=== PATIENT | male | born 1970 | race Two or more races ===

== ENCOUNTER 2020-08-23 07:46 | Inpatient (IN) | payer SELFPAY ==
[~2020-08-23] VITALS: Ht 167.6 cm; Wt 54.9 kg
[2020-08-23] VITALS (22 sets, daily range): BP systolic 82–159; BP diastolic 50–87
[2020-08-23] MEDS ORDERED: Insulin Human Regular 100units/ml 3ml IV ONE (08:15)
[2020-08-23] MEDS ORDERED: LORazepam Inj 2mg/ml 1ml IM ONE (08:15)
[2020-08-23] MEDS ORDERED: Haloperidol 5mg/ml Inj IM ONE (08:15)
[2020-08-23] MEDS ORDERED: Calcium Gluconate 1gm/10ml vial IVP ONE (08:15)
--- NOTE | 2020-08-23 08:15 | NUR ---
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 18 gauge LT AC IV est; blood, blood culture collected and sent to lab. Urine obtained and sent to lab.
--- NOTE | 2020-08-23 08:38 | NUR ---
ED Nurse Note: pt brought in by [address] (unknown if homeless) due to ALOC, 911 called by valdez. pt aao x0 but responds to pain, opening eyes spontaneously, disheveled appearance noted with soiled clothing on. skin is dry and dusky and has old scabs. tachycardia noted upon arrival but fluctuating between 90 to 140/min depends on movement. pt unable to answer to clinical questions at this time. pt has shunt looking access on arm but unable to answer if it is shunt for HD. 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 Addendum: 08/23/20 at 0911 by [email or web address] ED Nurse Note: pt brought in by [address] (unknown if homeless) due to ALOC, 911 called by valdez. pt aao x0 but responds to pain, opening eyes spontaneously, disheveled appearance noted with soiled clothing on. skin is dry and dusky and has old scabs. tachycardia noted upon arrival but fluctuating between 90 to 140/min depends on movement. pt unable to answer to clinical questions at this time. pt has shunt looking access on Rt upper chest but unable to answer if it is shunt for HD. 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 pt follows commands to "open your mouth, lay down."
[2020-08-23 08:41] LABS: APPEARANCE,URINE SLIGHTLY CLOUDY; BILIRUBIN, URINE NEGATIVE (NEGATIVE); GLUCOSE, URINE (UA) 1+ (NEGATIVE); KETONES,URINE 2+ (NEGATIVE); LEUKOCYTE ESTERASE ,URINE 1+ (NEGATIVE); NITRITE,URINE NEGATIVE (NEGATIVE); PH,URINE 5 (4.5-8.0); PROTEIN,URINE 4+ (NEGATIVE); UROBILINOGEN,URINE NORMAL MG/DL (0.0-1.0)
[2020-08-23 08:44] LABS: HEMOGLOBIN 11.8 G/DL (14.2-18.0); MEAN CORPUSCULAR VOLUME 102 FL (80-99); PLATELET COUNT 136 K/UL (150-450); RED BLOOD COUNT 3.54 M/UL (4.70-6.10); WHITE BLOOD COUNT 12.6 K/UL (4.8-10.8)
--- NOTE | 2020-08-23 08:46 | Emergency Room Report ---
History of Present Illness General Chief Complaint: Altered Level of Consciousness Source: EMS Present Illness HPI 50-year-old male presents to ED for altered level of consciousness. Found by EMS on Street. Found down. Patient grunting and moaning but unable provide any additional history. No other aggravating relieving factors. Denies any other associated symptoms Allergies: Coded Allergies: No Known Allergies (Unverified , 08/23/20) COVID-19 Screening Contact w/high risk pt: No Experienced COVID-19 symptoms?: No COVID-19 Testing performed CORPORATE STRATEGIST: No Patient History Past Medical History: renal disease, dialysis Past Surgical History: none Pertinent Family History: none Social History: Denies: smoking, alcohol use, drug use Immunizations: UTD Reviewed Nursing Documentation: PMH: Agreed; PSxH: Agreed Nursing Documentation-PMH Hx Dialysis: Yes Review of Systems All Other Systems: limited Physical Exam Vital Signs Date Time Temp Pulse Resp B/P (MAP) Pulse Ox O2 Delivery O2 Flow Rate FiO2 08/23/20 07:43 97.9 79 20 116/83 (94) 97 Room Air Sp02 EP Interpretation: reviewed, normal General Appearance: no apparent distress, other - lethargic Head: normocephalic, atraumatic Eyes: bilateral eye normal inspection, bilateral eye PERRL ENT: hearing grossly normal, normal pharynx, no angioedema, normal voice Neck: full range of motion, supple/symm/no masses Respiratory: chest non-tender, lungs clear, normal breath sounds, speaking full sentences, other - vascular access on R chest Cardiovascular #1: regular rate, rhythm, no edema Cardiovascular #2: 2+ carotid (R), 2+ carotid (L), 2+ radial (R), 2+ radial (L), 2+ dorsalis pedis (R), 2+ dorsalis pedis (L) Gastrointestinal: normal bowel sounds, non tender, soft, non-distended, no guarding, no rebound Rectal: deferred Genitourinary: normal inspection, no CVA tenderness Musculoskeletal: back normal, normal range of motion, gait/station normal, non- tender Neurologic: other - ALOC Psychiatric: other - ALOC Reflexes: 3+ bicep (R), 3+ bicep (L), 3+ tricep (R), 3+ tricep (L), 3+ knee (R), 3+ knee (L) Skin: other - see nursing notes Lymphatic: no adenopathy Procedures Critical Care Time Critical Care Time i. I feel this is a highly complex case requiring extensive working including EKG/Rhythm strip, Xray/CT/US, Blood/urine lab work, repeat exams while in ED, and administration of strong opiates/narcotics for pain control, admission to hospital or close patient follow up. Total time: 60 min bedside evaluation and treatment excludes procedures (EKG). Reason for critical care: Acidosis, end-stage renal disease, hyperkalemia, ALOC, CVA Possible complications: hypotension, hypertension, KS, shock, arrhythmias, me tabolic acidosis, end organ damage, respiratory failure. Interventions: Labs, EKG, chest x-ray, CT, drug screen, calcium, insulin, D50. Course: Presented ALOC. Initially altered and agitated. Restrained given Haldol/Ativan. CT head shows subacute and old infarcts. EKG shows peaked T waves in anterior leads. Dialysis catheter noted on chest. Given calcium, insulin, D50. Potassium 5.7. BUN/creatinine elevated. LFTs elevated. Troponin 0.151 likely leak. UA positive THC. Covid negative. Small fluids bolus Consultations: nursing staff, EMS, family Performed by: Dr Reyes Tolerated well condition = serious j. because of unstable vital signs this patient had a condition that could potentially threaten life or limb. I feel this is a critical patient who required my full attention while patient was considered critical. Total Critical Care Time excluding procedures was greater than 60 minutes Medical Decision Making Diagnostic Impression: Primary Impression: Altered level of consciousness Additional Impressions: ESRD (end stage renal disease) Elevated LFTs Hyperkalemia, diminished renal excretion Troponin level elevated ER Course Hospital Course 50-year-old male found down. Dialysis catheter in chest. Differential diagnoses include: KS/unstable angina, arrythmia, dehydration, CVA/TIA Clinical course Patient placed on stretcher. on cafeteria monitor. After initial history and physical I ordered labs, EKG, chest x-ray, IVFs, CT Brain labs reviewed- noted leukocytosis, hemoglobin/hematocrit ok, K 5.7, BUN/Cr elevated, Trop elevated, LFTs elevated EKG- peaked twaves in anterior leads interpreted by me Chest x-ray- no acute process CT brain- subacute vs old infarcts noted Rapid Covid negative UDS positive THC Given calcium, insulin, D50. Given small fluid bolus. Troponin leak likely given end-stage renal disease. Case discussed with Dr. Bhandari and he agreed to accept the patient to his ser vice for further care and support I. I feel this is a highly complex case requiring extensive working including EKG/Rhythm strip, Xray/CT/US, Blood/urine lab work, repeat exams while in ED, and administration of strong opiates/narcotics for pain control, admission to hospital or close patient follow up. Diagnosis - ALOC, ERSD, elevated LFTs, hyperkalemia, troponin elevated admitted to telemetry in serious condition Laboratory Tests Test 08/23/20 08:05 08/23/20 08:15 White Blood Count 12.6 K/UL (4.8-10.8) H Red Blood Count 3.54 M/UL (4.70-6.10) L Hemoglobin 11.8 G/DL (14.2-18.0) L Hematocrit 36.0 % (42.0-52.0) L Mean Corpuscular Volume 102 FL (80-99) H Mean Corpuscular Hemoglobin 33.3 PG (27.0-31.0) H Mean Corpuscular Hemoglobin Concent 32.8 G/DL (32.0-36.0) Red Cell Distribution Width 14.0 % (11.6-14.8) Platelet Count 136 K/UL (150-450) L Mean Platelet Volume 7.7 FL (6.5-10.1) Neutrophils (%) (Auto) % (45.0-75.0) Lymphocytes (%) (Auto) % (20.0-45.0) Monocytes (%) (Auto) % (1.0-10.0) Eosinophils (%) (Auto) % (0.0-3.0) Basophils (%) (Auto) % (0.0-2.0) Differential Total Cells Counted 100 Neutrophils % (Manual) 83 % (45-75) H Lymphocytes % (Manual) 4 % (20-45) L Monocytes % (Manual) 6 % (1-10) Eosinophils % (Manual) 0 % (0-3) Basophils % (Manual) 0 % (0-2) Band Neutrophils 7 % (0-8) Platelet Estimate Decreased L Platelet Morphology Normal Macrocytosis 1+ Sodium Level 133 MMOL/L (136-145) L Potassium Level 5.7 MMOL/L (3.5-5.1) H Chloride Level 91 MMOL/L (98-107) L Carbon Dioxide Level 7 MMOL/L (21-32) *L Anion Gap 35 mmol/L (5-15) H Blood Urea Nitrogen 149 mg/dL (7-18) H Creatinine 15.5 MG/DL (0.55-1.30) H Estimat Glomerular Filtration Rate 3.4 mL/min (>60) Glucose Level 142 MG/DL (74-106) H Calcium Level 8.1 MG/DL (8.5-10.1) L Total Bilirubin 1.3 MG/DL (0.2-1.0) H Direct Bilirubin 0.7 MG/DL (0.0-0.3) H Aspartate Amino Transf (AST/SGOT) 133 U/L (15-37) H Alanine Aminotransferase (ALT/SGPT) 74 U/L (12-78) Alkaline Phosphatase 123 U/L (46-116) H Ammonia 129 umol/L (11-32) H Troponin I 0.151 ng/mL (0.000-0.056) Total Protein 10.2 G/DL (6.4-8.2) H Albumin 3.4 G/DL (3.4-5.0) Globulin 6.8 g/dL Albumin/Globulin Ratio 0.5 (1.0-2.7) L Salicylates Level 5.3 ug/mL (2.8-20) Urine Opiates Screen Negative (NEGATIVE) Acetaminophen Level < 2 MCG/ML (10-30) L Urine Barbiturates Screen Negative (NEGATIVE) Phencyclidine (PCP) Screen Negative (NEGATIVE) Urine Amphetamines Screen Negative (NEGATIVE) Urine Benzodiazepines Screen Negative (NEGATIVE) Urine Cocaine Screen Negative (NEGATIVE) Urine Marijuana (THC) Screen Positive (NEGATIVE) H Serum Alcohol < 3 mg/dL Urine Color Yellow Urine Appearance Slightly cloudy Urine pH 5 (4.5-8.0) Urine Specific [place] 1.020 (1.005-1.035) Urine Protein 4+ (NEGATIVE) H Urine Glucose (UA) 1+ (NEGATIVE) H Urine Ketones 2+ (NEGATIVE) H Urine Blood 4+ (NEGATIVE) H Urine Nitrite Negative (NEGATIVE) Urine Bilirubin Negative (NEGATIVE) Urine Urobilinogen Normal MG/DL (0.0-1.0) Urine Leukocyte Esterase 1+ (NEGATIVE) H Urine RBC 10-15 /HPF (0 - 0) H Urine WBC 2-4 /HPF (0 - 0) Urine Squamous Epithelial Cells Occasional /LPF Urine Bacteria Few /HPF (NONE) EKG Diagnostic Results Troponin ordered: Yes Rate: normal Rhythm: NSR ST Segments: other - peaked twave in anterior leads ASA given to the pt in ED: Yes Rhythm Strip Diag. Results EP Interpretation: yes Rhythm: NSR, no PVC's Chest X-Ray Diagnostic Results Chest X-Ray Diagnostic Results : Chest X-Ray Ordered: Yes # of Views/Limited/Complete: 1 View Indication: Other EP Interpretation: Yes Interpretation: no consolidation, no effusion, no pneumothorax, no acute cardiopulmonary disease, other - dialysis catheter in chest Impression: No acute disease Electronically Signed by: Electronically signed by Seven Reyes MD Last Vital Signs Date Time Temp Pulse Resp B/P (MAP) Pulse Ox O2 Delivery O2 Flow Rate FiO2 08/23/20 08:07 101 18 143/86 98 08/23/20 07:43 97.9 Room Air Status: improved Disposition: ADMITTED INPATIENT Condition: Serious Scripts No Active Prescriptions or Reported Meds Referrals: NOT CHOSEN IPA/,REFERRING (PCP) Seven Reyes MD Aug 23, 2020 08:46
[2020-08-23 08:58] LABS: COLOR,URINE YELLOW
[2020-08-23 09:10] LABS: ALANINE AMINOTRANSFERASE 74 U/L (12-78); ALBUMIN 3.4 G/DL (3.4-5.0); ALBUMIN/GLOBULIN RATIO 0.5 (1.0-2.7); ALKALINE PHOSPHATASE 123 U/L (46-116); AMMONIA 129 umol/L (11-32); ANION GAP 35 mmol/L (5-15); ASPARTATE AMINO TRANSFERASE 133 U/L (15-37); BILIRUBIN,TOTAL 1.3 MG/DL (0.2-1.0); BLOOD UREA NITROGEN 149 mg/dL (7-18); CALCIUM 8.1 MG/DL (8.5-10.1); CHLORIDE 91 MMOL/L (98-107); CREATININE 15.5 MG/DL (0.55-1.30); POTASSIUM 5.7 MMOL/L (3.5-5.1); SODIUM 133 MMOL/L (136-145)
[2020-08-23 09:15] LABS: CARBON DIOXIDE 7 MMOL/L (21-32)
[2020-08-23 09:17] LABS: BILIRUBIN,DIRECT 0.7 MG/DL (0.0-0.3)
[2020-08-23] MEDS ORDERED: Sodium Bicarbonate 50ml Carp IV ONE (09:45)
--- NOTE | 2020-08-23 10:10 | NUR ---
ED Nurse Note: pt left to CT in stable condition after Covid results confirmed to negative.
--- NOTE | 2020-08-23 10:21 | NUR ---
ED Nurse Note: pt came back from CT in stable condition. 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
--- NOTE | 2020-08-23 10:49 | NUR ---
ED Nurse Note: x-ray at bedside.
--- NOTE | 2020-08-23 10:53 | Diagnostic Imaging Report ---
Indications: Altered level of consciousness Technique: Spiral acquisitions obtained through the brain. Angled axial and coronal 5 x 5 mm slices were reconstructed. Total dose length product 1072 mGycm. CTDI vol(s) 53 mGy. Dose reduction achieved using automated exposure control Comparison: None. Findings: There is an old focal right frontal infarct. There is age-related enlargement of the ventricles and extra axial CSF spaces as well as periventricular deep white matter low attenuation, consistent with chronic ischemic change. There is low attenuation in the posterior inferior left basal ganglia just lateral to the hypothalamus. No acute intracranial bleed. No mass effect or midline shift. Otherwise normal mack-white differentiation. There is enlargement advanced for patient's age. Visualized orbits and sinuses are unremarkable. The mastoids are clear. The calvarium is intact Impression: Subacute versus old left inferior basal ganglia lacunar infarct Old right frontal infarct Other chronic and age-related changes as described Negative for acute intracranial bleed or mass effect Findings discussed by phone with Dr. Reyes in the emergency room at the time of interpretation The CT scanner at [facility] is accredited by the [employer] and the scans are performed using protocols designed to limit radiation exposure to as low as reasonably achievable to attain images of sufficient resolution adequate for diagnostic evaluation.
--- NOTE | 2020-08-23 11:27 | NUR ---
ED Nurse Note: Dr. Bhandari at pt bedside
--- NOTE | 2020-08-23 13:42 | Consultation ---
Consult Note Consult Note I am asked to eval for dialysis patient in ER Dialysis ordered full not to follow 50-year-old male presents to ED for altered level of consciousness. Found by EMS on [address]. Found down. Patient grunting and moaning but unable provide any additional history. No other aggravating relieving factors. Denies any other associated symptoms Allergies: No Known Allergies (Unverified , 08/23/20) COVID-19 Screening Contact w/high risk pt: No Experienced COVID-19 symptoms?: No COVID-19 Testing performed CASE SPECIALIST: No Past Medical History: renal disease, dialysis Past Surgical History: none Pertinent Family History: none Social History: Denies: smoking, alcohol use, drug use Immunizations: UTD Reviewed Nursing Documentation: PMH: Agreed; PSxH: Agreed Hx Dialysis: Yes Vital Signs in ER: Date Time Temp Pulse Resp B/P (MAP) Pulse Ox O2 Delivery O2 Flow Rate FiO2 08/23/20 07:43 97.9 79 20 116/83 (94) 97 Room Air PHYSICAL EXAMINATION: VITAL SIGNS: Temperature 99.9, pulse 102, blood pressure 98/58. HEAD AND NECK: [place] conjunctivae. HEART: Tachycardic. Has right IJ PermCath. LUNGS: Clear. ABDOMEN: Soft, flat. EXTREMITIES: No edema. SKIN: Has some rash. NEUROLOGIC: He is confused, on restraints. LABORATORY AND DIAGNOSTIC DATA: WBC 15.3 going up from 12.6, hemoglobin 11, hematocrit 30.2, platelets 157. Sodium 135, potassium 3.5, chloride 94, bicarb 17, BUN 61, creatinine 7.6. Uric acid is 7.7. Bilirubin 1.2. BNP more than 35,000. Troponin 0.151 that increased to 0.4. CRP elevated 18.8. Urine toxicology was positive for marijuana. Chest x-ray was negative. 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 Abdominal ultrasound showed cholelithiasis, gallbladder wall thickening and hyperemia, questionable acute cholecystitis. . 2 . Assessment/Plan (1) ESRD (end stage renal disease) (2) Altered level of consciousness (3) Hyperkalemia, diminished renal excretion (4) Elevated LFTs (5) Troponin level elevated Dialysis ordered Management of atrial fibrillation Management of hypotension and sepsis Per consultants Per orders Alfredo Germain MD Aug 23, 2020 13:42
[2020-08-23] MEDS ORDERED: Metoprolol Tartrate 5mg/5ml Inj IVP SCH (13:45)
--- NOTE | 2020-08-23 15:00 | Diagnostic Imaging Report ---
Indication: Cough Technique: One view of the chest Comparison: none Findings: Lungs and pleural spaces are clear. The heart size is normal. There is a right chest tunneled dialysis catheter Impression: No acute process
--- NOTE | 2020-08-23 15:04 | Cardiac Electrophysiology PN ---
Subjective Subjective [id number] Objective Last 24 Hour Vital Signs Date Time Temp Pulse Resp B/P (MAP) Pulse Ox O2 Delivery O2 Flow Rate FiO2 08/23/20 14:09 97.6 112 19 82/60 100 Room Air 08/23/20 13:45 142 116/51 08/23/20 12:30 98.2 132 30 116/72 100 Room Air 08/23/20 10:31 115 19 96/54 100 Room Air 08/23/20 08:37 128 19 99/56 100 08/23/20 08:20 95 18 Room Air 08/23/20 08:20 97.9 95 18 143/86 100 Room Air 08/23/20 08:07 101 18 143/86 98 08/23/20 07:43 97.9 79 20 116/83 (94) 97 Room Air Laboratory Tests Test 08/23/20 08:05 08/23/20 08:15 08/23/20 12:00 White Blood Count 12.6 K/UL (4.8-10.8) H Red Blood Count 3.54 M/UL (4.70-6.10) L Hemoglobin 11.8 G/DL (14.2-18.0) L Hematocrit 36.0 % (42.0-52.0) L Mean Corpuscular Volume 102 FL (80-99) H Mean Corpuscular Hemoglobin 33.3 PG (27.0-31.0) H Mean Corpuscular Hemoglobin Concent 32.8 G/DL (32.0-36.0) Red Cell Distribution Width 14.0 % (11.6-14.8) Platelet Count 136 K/UL (150-450) L Mean Platelet Volume 7.7 FL (6.5-10.1) Neutrophils (%) (Auto) % (45.0-75.0) Lymphocytes (%) (Auto) % (20.0-45.0) Monocytes (%) (Auto) % (1.0-10.0) Eosinophils (%) (Auto) % (0.0-3.0) Basophils (%) (Auto) % (0.0-2.0) Differential Total Cells Counted 100 Neutrophils % (Manual) 83 % (45-75) H Lymphocytes % (Manual) 4 % (20-45) L Monocytes % (Manual) 6 % (1-10) Eosinophils % (Manual) 0 % (0-3) Basophils % (Manual) 0 % (0-2) Band Neutrophils 7 % (0-8) Platelet Estimate Decreased L Platelet Morphology Normal Macrocytosis 1+ Sodium Level 133 MMOL/L (136-145) L Potassium Level 5.7 MMOL/L (3.5-5.1) H Chloride Level 91 MMOL/L (98-107) L Carbon Dioxide Level 7 MMOL/L (21-32) *L Anion Gap 35 mmol/L (5-15) H Blood Urea Nitrogen 149 mg/dL (7-18) H Creatinine 15.5 MG/DL (0.55-1.30) H Estimat Glomerular Filtration Rate 3.4 mL/min (>60) Glucose Level 142 MG/DL (74-106) H Calcium Level 8.1 MG/DL (8.5-10.1) L Total Bilirubin 1.3 MG/DL (0.2-1.0) H Direct Bilirubin 0.7 MG/DL (0.0-0.3) H Aspartate Amino Transf (AST/SGOT) 133 U/L (15-37) H Alanine Aminotransferase (ALT/SGPT) 74 U/L (12-78) Alkaline Phosphatase 123 U/L (46-116) H Ammonia 129 umol/L (11-32) H Troponin I 0.151 ng/mL (0.000-0.056) Total Protein 10.2 G/DL (6.4-8.2) H Albumin 3.4 G/DL (3.4-5.0) Globulin 6.8 g/dL Albumin/Globulin Ratio 0.5 (1.0-2.7) L Salicylates Level 5.3 ug/mL (2.8-20) Urine Opiates Screen Negative (NEGATIVE) Acetaminophen Level < 2 MCG/ML (10-30) L Urine Barbiturates Screen Negative (NEGATIVE) Phencyclidine (PCP) Screen Negative (NEGATIVE) Urine Amphetamines Screen Negative (NEGATIVE) Urine Benzodiazepines Screen Negative (NEGATIVE) Urine Cocaine Screen Negative (NEGATIVE) Urine Marijuana (THC) Screen Positive (NEGATIVE) H Serum Alcohol < 3 mg/dL Urine Color Yellow Urine Appearance Slightly cloudy Urine pH 5 (4.5-8.0) Urine Specific [place] 1.020 (1.005-1.035) Urine Protein 4+ (NEGATIVE) H Urine Glucose (UA) 1+ (NEGATIVE) H Urine Ketones 2+ (NEGATIVE) H Urine Blood 4+ (NEGATIVE) H Urine Nitrite Negative (NEGATIVE) Urine Bilirubin Negative (NEGATIVE) Urine Urobilinogen Normal MG/DL (0.0-1.0) Urine Leukocyte Esterase 1+ (NEGATIVE) H Urine RBC 10-15 /HPF (0 - 0) H Urine WBC 2-4 /HPF (0 - 0) Urine Squamous Epithelial Cells Occasional /LPF Urine Bacteria Few /HPF (NONE) Lactic Acid Level 1.60 mmol/L (0.4-2.0) Microbiology Date/Time Source Procedure Growth Status 08/23/20 08:35 Nasopharynx SARS-CoV-2 RdRp Gene Assay - Final Complete Kurtis Fisher MD Aug 23, 2020 15:04
[2020-08-23] MEDS ORDERED: dilTIAZem Premix 125mg/125ml 125 ML IVPB ONE (15:15)
--- NOTE | 2020-08-23 15:29 | Emergency Room Report ---
History of Present Illness General Chief Complaint: Altered Level of Consciousness Source: EMS Present Illness Allergies: Coded Allergies: No Known Allergies (Unverified , 08/23/20) COVID-19 Screening Contact w/high risk pt: No Experienced COVID-19 symptoms?: No COVID-19 Testing performed PASTRY DECORATOR: No Nursing Documentation-PMH Hx Dialysis: Yes Physical Exam Vital Signs Date Time Temp Pulse Resp B/P (MAP) Pulse Ox O2 Delivery O2 Flow Rate FiO2 08/23/20 07:43 97.9 79 20 116/83 (94) 97 Room Air Procedures Critical Care Time Critical Care Time i. I feel this is a highly complex case requiring extensive working including EKG/Rhythm strip, Xray/CT/US, Blood/urine lab work, repeat exams while in ED, and administration of strong opiates/narcotics for pain control, admission to hospital or close patient follow up. Total time: 60 min bedside evaluation and treatment excludes procedures (EKG). Reason for critical care: Hypotension, acidosis, A. fib with RVR Possible complications: hypotension, hypertension, SC, shock, arrhythmias, metabolic acidosis, end organ damage, respiratory failure. Interventions: Repeat EKG. Lopressor x3. Reassessment of vitals. Right femoral central line. Pressors Course: Patient currently awaiting bed. Patient developing A. fib with RVR. Given Lopressor x3 with cardioversion achieved. BP dropping. Small fluid boluses given but remains hypotensive. Right femoral line placed. Pressors started Consultations: nursing staff, EMS, family, cardiology, nephrology Performed by: Dr Reyes Tolerated well condition = critical j. because of unstable vital signs this patient had a condition that could potentially threaten life or limb. I feel this is a critical patient who required my full attention while patient was considered critical. Total Critical Care Time excluding procedures was greater than 60 minutes Central Line Central Line : Consent: Emergent Central Line Lumen: triple Maximal Sterile Barrier Tech: yes cap, yes mask, yes sterile gown, yes sterile gloves, yes large sterile sheet, yes hand hygiene, yes chlorhexidine prep Central Line Postion: femoral (R) Anesthesia: Lidocaine Complications: none Central Line Post Position: sutured, good blood return Attempts: One Patient Tolerated: Well Complications: None Medical Decision Making Diagnostic Impression: Primary Impression: Altered level of consciousness Additional Impressions: Elevated LFTs ESRD (end stage renal disease) Troponin level elevated Hyperkalemia, diminished renal excretion ER Course Patient awaiting bed. During ED course patient developed A. fib with RVR. Given Lopressor x3 with cardioversion achieved. Patient's BP drops. Given small fluid boluses but remains hypotensive. Patient cannot receive full fluid resuscitation due to end-stage renal disease. Central line placed. Pressors started. will be upgraded to ICU Last Vital Signs Date Time Temp Pulse Resp B/P (MAP) Pulse Ox O2 Delivery O2 Flow Rate FiO2 08/23/20 14:09 97.6 112 19 82/60 100 Room Air Status: improved Disposition: ADMITTED INPATIENT Condition: Critical Scripts No Active Prescriptions or Reported Meds Referrals: NOT CHOSEN IPA/,REFERRING (PCP) Seven Reyes MD Aug 23, 2020 15:29
--- NOTE | 2020-08-23 15:43 | NUR ---
ED Nurse Note: rechecked in 5 mins. goal has met to 101/54mmHg. remaining at the same rate.
--- NOTE | 2020-08-23 16:00 | NUR ---
ED Nurse Note: per clinical pharmacology site, Cardizem and Levophed are compatibility. probation officer Torie made aware. we will use 1 centural line and 1 iv line.
[2020-08-23] MEDS ORDERED: NS IVPB SCH (16:04)
[2020-08-23] MEDS ORDERED: DILTIAZEM HCL IVPB SCH (16:04)
[2020-08-23] MEDS ORDERED: dilTIAZem HCL 125 MG in NS 100 ML IVPB SCH (16:15)
--- NOTE | 2020-08-23 16:32 | NUR ---
ED Nurse Note: HR remained tachy at 127/min. Cardizem titrated to 5mg/hr. will rechecked in 15 mins.
--- NOTE | 2020-08-23 16:47 | NUR ---
ED Nurse Note: HR at 110/min. titrate to 7.5mg/hr.
--- NOTE | 2020-08-23 17:02 | NUR ---
ED Nurse Note: HR 119/min. titrated to 10mg/hr.
--- NOTE | 2020-08-23 17:17 | NUR ---
ED Nurse Note: HR 110/min. tirated Cardizem to 12.5mg/hr.
--- NOTE | 2020-08-23 17:32 | NUR ---
ED Nurse Note: HR at 111/min. titrated to max dose 15mg/hr. ERMD made aware.
--- NOTE | 2020-08-23 17:34 | NUR ---
ED Nurse Note: per ERMD it is ok to maintain current rate of Cardizem. current HR between 100 to 120/min. however, it does not fluctuate as prior to cardizem drip.
--- NOTE | 2020-08-23 17:44 | Consultation ---
DATE OF CONSULTATION: 08/23/2020 CARDIOLOGY CONSULTATION CONSULTING PHYSICIAN: Kurtis Fisher MD REFERRING PHYSICIAN: Lev Bhandari MD REASON FOR CONSULTATION: Atrial fibrillation with rapid ventricular response. HISTORY OF PRESENT ILLNESS: Patient is a 50-year-old gentleman with unknown past medical history except that he has a dialysis access on his chest, was found by paramedics on the street. Patient was grunting and moaning, was not able to provide any information. Patient was brought to the emergency room. While in the ER, even though he initially was in sinus rhythm, rate of 70 atrial fibrillation with rapid ventricular response with heart rate of 160s. Patient received 5 mg of IV metoprolol by the ER physician and a Cardiology consultation was obtained for further evaluation. At the time of my evaluation, patient is unable to provide any information, the blood pressure. Patient also was severely hyperkalemic and received calcium, insulin, and D50. REVIEW OF SYSTEMS: Cannot be obtained. PAST MEDICAL HISTORY: As mentioned above. FAMILY HISTORY: Noncontributory. SOCIAL HISTORY: Not clear. Patient was found on the street. PHYSICAL EXAMINATION: VITAL SIGNS: Show blood pressure is 116/51, pulse of 142, after metoprolol blood pressure 82/60, pulse 112. HEAD AND NECK: Positive JVD. LUNGS: Decreased breath sounds. CARDIOVASCULAR: Shows irregular and tachycardic. S1, S2 with no gallop. ABDOMEN: Soft. EXTREMITIES: Chronic skin changes and multiple sclerotic lesions suspicious for scabies. LABORATORY AND DIAGNOSTIC DATA: His labs show white count of 12.7 hemoglobin 11.9, hematocrit 36, and platelet count 136. Sodium 133, potassium 5.7, BUN of 49, creatinine of 15.5, and carbon dioxide of only 7. Troponin is 0.151. Urine toxicology was positive for marijuana. ASSESSMENT AND PLAN: 1. Atrial fibrillation with rapid ventricular response. Likely due to patient's severe acidosis due to not getting dialysis. Patient received 5 mg of metoprolol every 5 minutes x3. We will transfer to intensive care unit. Start the patient on Cardizem drip if the blood pressure allows. Otherwise, patient may need Levophed to support his blood pressure. 2. Elevated troponin, likely due to sepsis and hypotension and tachycardia. We will get an echocardiogram. Completely rule out DE protocol. 3. End-stage renal disease and hyperkalemia. Hemodialysis per Dr. Germain. Patient already has right IJ PermCath. 4. Anemia. 5. Hyperkalemia. Received glucose and insulin. Thank you very much for allowing me to participate in the care of this critical gentleman. Please do not hesitate to contact me for any questions regarding my evaluation. Kurtis Fisher M.D. DR: YOLANDA JOB#: [id number] CC:
--- NOTE | 2020-08-23 18:19 | NUR ---
ED Nurse Note: HR at 82/min and sinus rhythm.
--- NOTE | 2020-08-23 18:53 | NUR ---
ED Nurse Note: HR 72. goal has met and stable.
--- NOTE | 2020-08-23 19:10 | NUR ---
HAND-OFF: Report given to MARINA Jimenes.
--- NOTE | 2020-08-23 19:11 | NUR ---
ED Nurse Note: Pt laying in bed with eyes closed, opens eyes with touch and painful stimuli. Unable to assess orientation at the moment since pt does not keep eyes open for long. Breathing even and unlabored. Vital signs stable.
--- NOTE | 2020-08-23 19:53 | NUR ---
ED Nurse Note: Report given to MARINA Jimenes in ICU
--- NOTE | 2020-08-23 20:00 | NUR ---
NURSE NOTES: Called [facility] Dialysis center regarding Stat order HD for patient. Spoke to [facility] HD nurse regarding dialysis and confirmed she will come to see patient.
--- NOTE | 2020-08-23 20:05 | NUR ---
ED Nurse Note: Per EDMD pt ok to transfer to ICU pt transfered to ICU via gurney accompanied by EMT and RN. Pt awake, able to verbalize yes. Belongings and admission packet sent up with pt.
--- NOTE | 2020-08-23 20:35 | NUR ---
NURSE NOTES: HD nurse at bedside setting up dialysis.
--- NOTE | 2020-08-23 20:45 | NUR ---
NURSE NOTES: Patient has a dark bloody gel type stool, Dr. Palomares made aware
--- NOTE | 2020-08-23 20:49 | NUR ---
NURSE NOTES: Called Dr. Bhandari and left message regarding admission orders, await for call back.
--- NOTE | 2020-08-23 22:19 | NUR ---
NURSE NOTES: Called Dr. Bhandari and left message for admission orders.
--- NOTE | 2020-08-23 22:43 | NUR ---
NURSE NOTES: Dr. Palomares at bedside rounding on patient, received orders for Protonix 40mg IVP now and scheduled daily.
[2020-08-23] MEDS ORDERED: Pantoprazole Inj IVP ONE (22:45)
[2020-08-23] MEDS: Norepinephrine 4mg/NS Premix 250 ML IV SCH (23:00)
--- NOTE | 2020-08-23 23:29 | History and Physical Report ---
DATE OF ADMISSION: 08/23/2020 HISTORY OF PRESENT ILLNESS: I saw the patient in the emergency room. The patient came in with altered level of consciousness and was found on the street, found down. The patient was currently moaning. I cannot get a reliable history from the patient. The patient also has rash. The patient also became hypotensive and tachycardic and went into atrial fibrillation with rapid ventricular response. The patient also apparently has end-stage renal disease, on hemodialysis with hyperkalemia. The patient is severely acidotic from acute renal failure. BUN is severely elevated . The patient also has leukocytosis. I cannot get any history. According to the ER doctor, COVID was negative, so admitted for severe acute renal failure, altered mental status, and AFib with rapid ventricular response. Again, cannot get any past medical history from the patient. I cannot get any history from the patient. CT showed subacute old infarct. PAST MEDICAL HISTORY: Unable to obtain. End-stage renal disease, on hemodialysis. PAST SURGICAL HISTORY: Unable to obtain. Dialysis access. SOCIAL HISTORY: The patient is unable to give history. Unknown, but toxicology was positive for THC. REVIEW OF SYSTEMS: The patient is unable to provide history. Unable to obtain. MEDICATIONS: Unable to obtain. FAMILY HISTORY: Unable to obtain. PHYSICAL EXAMINATION: VITAL SIGNS: Temperature 97.6, pulse is 68, blood pressure 110/59. HEENT: Pupils are reactive. SKIN: The patient has rash allover. CHEST: Clear to auscultation CARDIOVASCULAR: Irregularly irregular. Tachycardic. GASTROINTESTINAL: Soft. Positive bowel sounds. No organomegaly. EXTREMITIES: No edema. NEUROLOGIC: Responds to noxious stimuli. Unable to follow neurological exam. The patient is confused. LABORATORY DATA: Sodium 133, potassium 5.7, chloride 91, CO2 of 7, BUN of 149, creatinine of 15.5, glucose 142. Total bilirubin of 1.3, AST of 133, ALT of 74, alkaline phosphatase of 123. Ammonia 129. Troponin 0.15. WBC of 12.6, hemoglobin of 11.8, and platelet 136,000. ASSESSMENT AND PLAN: The patient has acute renal failure, electrolyte imbalance, dehydration, altered mental status, end-stage renal disease, atrial fibrillation with rapid ventricular response, and also elevated ammonia level. I have consulted Dr. Palomares, Dr. Fisher, Dr. Jean Carlos Adamson, Dr. Germain, Dr. Shearer, and Dr. Carlos Alberto Castellanos to help with the above-mentioned abnormalities and imaging studies as well as severe dehydration and hyperkalemia. Dr. Shearer is also consulted to see if there are any other reasons for his lethargy. Most likely, it is metabolic in this case. Most likely, the patient has metabolic encephalopathy. Dr. Fisher has been consulted for AFib with rapid ventricular response. Dr. Fisher will be helping with management of those medications. Rule out sepsis. Antibiotics per Dr. Jean Carlos Adamson and Dr. Germain will also be in charge of the dialysis and fluids. The patient is severely dehydrated. Lev Bhandari M.D. DR: ELLEN JOB#: [id number] CC:
--- NOTE | 2020-08-23 23:35 | NUR ---
NURSE NOTES: Patient finished with dialysis, patient tolerated dialysis well. No output. BP now is 122/76 while on 20mcg of Levophed, HR is 79 NSR, SpO2 is 99% while on 2L NC and 22 RR. Patient still remains AAOX1-2. Will continue to monitor for any changes.
--- NOTE | 2020-08-23 23:45 | General Progress Note ---
Subjective Allergies: Coded Allergies: No Known Allergies (Unverified , 08/23/20) Objective Last 24 Hour Vital Signs Date Time Temp Pulse Resp B/P (MAP) Pulse Ox O2 Delivery O2 Flow Rate FiO2 08/23/20 23:00 112/70 08/23/20 23:00 85 22 112/70 (84) 100 08/23/20 22:45 84 21 116/72 (87) 100 08/23/20 22:30 86 21 128/77 (94) 98 08/23/20 22:00 95 20 116/73 (87) 100 08/23/20 21:45 95 20 159/87 (111) 99 08/23/20 21:30 91 21 132/78 (96) 99 08/23/20 21:15 88 20 112/73 (86) 98 08/23/20 21:00 Nasal Cannula 2.0 08/23/20 21:00 80 21 141/74 (96) 100 08/23/20 20:45 72 24 123/63 (83) 99 08/23/20 20:43 71 24 111/64 (80) 99 08/23/20 20:38 72 24 106/57 (73) 99 08/23/20 20:30 98.2 72 27 84/51 (62) 97 08/23/20 20:05 98.0 66 18 106/56 99 Room Air 08/23/20 19:27 97.6 74 18 104/57 98 Room Air 08/23/20 19:11 97.6 68 20 110/59 98 Room Air 08/23/20 18:53 72 20 99/50 98 Room Air 08/23/20 18:19 89 110/64 08/23/20 17:32 111 08/23/20 17:17 110 08/23/20 17:02 119 08/23/20 16:47 110 08/23/20 16:32 127 08/23/20 16:17 117 105/66 08/23/20 15:53 101/54 08/23/20 15:43 101/54 08/23/20 15:38 100/64 08/23/20 14:09 97.6 112 19 82/60 100 Room Air 08/23/20 13:45 142 116/51 08/23/20 12:30 98.2 132 30 116/72 100 Room Air 08/23/20 10:31 115 19 96/54 100 Room Air 08/23/20 08:37 128 19 99/56 100 08/23/20 08:20 95 18 Room Air 08/23/20 08:20 97.9 95 18 143/86 100 Room Air 08/23/20 08:07 101 18 143/86 98 08/23/20 07:43 97.9 79 20 116/83 (94) 97 Room Air Laboratory Tests 08/23/20 08:05: White Blood Count 12.6H, Red Blood Count 3.54L, Hemoglobin 11.8L, Hematocrit 36.0L, Mean Corpuscular Volume 102H, Mean Corpuscular Hemoglobin 33.3H, Mean Corpuscular Hemoglobin Concent 32.8, Red Cell Distribution Width 14.0, Platelet Count 136L, Mean Platelet Volume 7.7, Neutrophils (%) (Auto) , Lymphocytes (%) (Auto) , Monocytes (%) (Auto) , Eosinophils (%) (Auto) , Basophils (%) (Auto) , Differential Total Cells Counted 100, Neutrophils % (Manual) 83H, Lymphocytes % (Manual) 4L, Monocytes % (Manual) 6, Eosinophils % (Manual) 0, Basophils % (Manual) 0, Band Neutrophils 7, Platelet Estimate DecreasedL, Platelet Morphology Normal, Macrocytosis 1+, Sodium Level 133L, Potassium Level 5.7H, Chloride Level 91L, Carbon Dioxide Level 7*L, Anion Gap 35H, Blood Urea Nitrogen 149H, Creatinine 15.5H, Estimat Glomerular Filtration Rate 3.4, Glucose Level 142H, Calcium Level 8.1L, Total Bilirubin 1.3H, Direct Bilirubin 0.7H, Aspartate Amino Transf (AST/SGOT) 133H, Alanine Aminotransferase (ALT/SGPT) 74, Alkaline Phosphatase 123H, Ammonia 129H, Troponin I 0.151H, Total Protein 10.2H, Albumin 3.4, Globulin 6.8, Albumin/Globulin Ratio 0.5L, Salicylates Level 5.3, Urine Opiates Screen Negative, Acetaminophen Level < 2L, Urine Barbiturates Screen Negative, Phencyclidine (PCP) Screen Negative, Urine Amphetamines Screen Negative, Urine Benzodiazepines Screen Negative, Urine Cocaine Screen Negative, Urine Marijuana (THC) Screen PositiveH, Serum Alcohol < 3 08/23/20 08:15: Urine Color Yellow, Urine Appearance Slightly cloudy, Urine pH 5, Urine Specific [place] 1.020, Urine Protein 4+H, Urine Glucose (UA) 1+H, Urine Ketones 2+H, Urine Blood 4+H, Urine Nitrite Negative, Urine Bilirubin Negative, Urine Urobilinogen Normal, Urine Leukocyte Esterase 1+H, Urine RBC 10-15H, Urine WBC 2-4, Urine Squamous Epithelial Cells Occasional, Urine Bacteria Few 08/23/20 12:00: Lactic Acid Level 1.60 Height (Feet): 5 Height (Inches): 6.00 Weight (Pounds): 121 Assessment/Plan Assessment/Plan: GI CONSULT Dictated Thank you P Franklin Singleton MD Aug 23, 2020 23:45
[2020-08-24] VITALS (29 sets, daily range): BP systolic 88–148; BP diastolic 48–82
[2020-08-24] MEDS ORDERED: Acetaminophen 500mg (ES) tab ORAL PRN (01:15)
--- NOTE | 2020-08-24 01:33 | NUR ---
NURSE NOTES: Patients doing fine at this time, Levophed is slowly being tapering off and blood pressures are staying within good ranges. Remains on NS at 2L. HR at 93 NSR, pulses present. Will continue to monitor.
--- NOTE | 2020-08-24 02:44 | Consultation ---
DATE OF CONSULTATION: 08/23/2020 GASTROENTEROLOGY CONSULTATION CONSULTING PHYSICIAN: Franklin Palomares M.D. CHIEF COMPLAINT: I was asked to see this patient by Dr. Lev Bhandari today for evaluation of gastrointestinal issues. HISTORY OF PRESENT ILLNESS: The patient was found down unconscious in the street and was brought to the emergency room where he was found to be hypotensive and tachycardic. He also had some arrhythmias. He was presumed to be a dialysis patient since he has a dialysis catheter. He had marked electrolyte abnormalities. His COVID test was negative, but the patient has severe renal failure and electrolyte abnormalities. He was admitted to the hospital for further evaluation. His CT scan showed a subacute old infarct. No imaging of the abdomen has been done. PAST MEDICAL HISTORY: History of end-stage renal disease, on dialysis. FAMILY HISTORY: Unavailable and unobtainable. SOCIAL HISTORY: Unavailable and unobtainable. REVIEW OF SYSTEMS: Otherwise unavailable and unobtainable. MEDICATIONS: See the chart for details. PHYSICAL EXAMINATION: GENERAL: Disheveled man seen in the intensive care unit. On the street, getting hemodialysis. The patient is noncommunicative. HEENT: Normocephalic. NECK: Supple. CHEST: Revealed coarse breath sounds. CARDIOVASCULAR: Revealed a regular rate. ABDOMEN: Soft and nondistended. EXTREMITIES: Revealed no edema. SKIN: Revealed a diffuse rash. LABORATORY DATA: Laboratory data were noted. ASSESSMENT: This patient has acute renal failure on top of chronic renal failure with electrolyte imbalance and marked acidosis. He does have an elevated ammonia, but the significance of this at this point is unclear. Likewise, his blood count is likely to be significantly anemic with chronic renal failure. The patient is somewhat obtunded, but this may be due to metabolic derangements. In addition, his laboratory parameters do show an elevated AST and alkaline phosphatase. The hepatitis B and C will be ordered and checked. RECOMMENDATIONS: Per above discussion and per orders written in the chart. Thank you for asking me to participate in the care of this patient. Franklin Palomares M.D. DR: LOWELL JOB#: [id number] CC: MITZI
--- NOTE | 2020-08-24 03:15 | NUR ---
NURSE NOTES: Patient repositioned and given oral care. NAD at this time, patient is sleeping but easily arousable. Vitals are stable, remains afebrile, will continue to monitor.
--- NOTE | 2020-08-24 04:15 | NUR ---
NURSE NOTES: Patient remains NSR, pulses present. patient continues to be lethargic and confused at time, still tries to pull on devices. Blood pressures have been stable. Levophed is off. On NC at 2L with respirations at 24. No acute distress at this time. Central lines dressings changed.
[2020-08-24 04:53] LABS: HEMATOCRIT 30.2 % (42.0-52.0); MEAN CORPUSCULAR VOLUME 96 FL (80-99); PLATELET COUNT 157 K/UL (150-450); RED BLOOD COUNT 3.14 M/UL (4.70-6.10); RED CELL DISTRIBUTION WIDTH 14.2 % (11.6-14.8); WHITE BLOOD COUNT 15.3 K/UL (4.8-10.8)
[2020-08-24 05:16] LABS: CREATINE KINASE 1833 U/L (26-308); GAMMA GLUTAMYL TRANSPEPTIDASE 201 U/L (5-85); LACTATE DEHYDROGENASE 611 U/L (81-234); PHOSPHORUS 8.1 MG/DL (2.5-4.9)
[2020-08-24 05:21] LABS: ALANINE AMINOTRANSFERASE 75 U/L (12-78); ALBUMIN/GLOBULIN RATIO 0.5 (1.0-2.7); ALKALINE PHOSPHATASE 116 U/L (46-116); ANION GAP 24 mmol/L (5-15); ASPARTATE AMINO TRANSFERASE 126 U/L (15-37); BILIRUBIN,TOTAL 1.2 MG/DL (0.2-1.0); BLOOD UREA NITROGEN 61 mg/dL (7-18); CALCIUM 8.2 MG/DL (8.5-10.1); CARBON DIOXIDE 17 MMOL/L (21-32); CHLORIDE 94 MMOL/L (98-107); CHOLESTEROL 211 MG/DL (< 200); CREATININE 7.6 MG/DL (0.55-1.30); HDL CHOLESTEROL 26 MG/DL (40-60); POTASSIUM 3.5 MMOL/L (3.5-5.1); SODIUM 135 MMOL/L (136-145); TRIGLYCERIDES 653 MG/DL (30-150)
[2020-08-24 05:43] LABS: BILIRUBIN,DIRECT 0.6 MG/DL (0.0-0.3)
--- NOTE | 2020-08-24 06:13 | NUR ---
NURSE NOTES: Blood pressure continues to be stable, NSR on the monitor, patient awake but confused at times. Repositioned and oral care given. Hemodynamically stable.
--- NOTE | 2020-08-24 06:17 | NUR ---
NURSE NOTES: Patient had black tarry like stool. Patient cleaned and new linen applied/
--- NOTE | 2020-08-24 07:33 | NUR ---
NURSE NOTES: report received from MARINA Stokes. patient is lethargic but opens eyes to voice and look at the person asking questions, he is unable to respond verbally to any questions instead he moans. he is currently in sinus rhythm with with heart rate at 94 with Bp of 99/55, he is saturating at 100% on 2L/min nasal cannula with respirations at 20-21 non labored with bilateral chest rise noted, right upper tunnels hemodialysis catheter is clean and dressing intact, right femoral tlc catheter is patent with all lumens having blood return and flush. there also a 18g IV on the left ac saline locked, no iv fluids running at this time. he is on restraint for pulling on catheter and safety devices. his hands are warm with pulses present distally and hands pink.
--- NOTE | 2020-08-24 08:01 | NUR ---
NURSE NOTES: Dr. Palomares at the bedside conducting rounds and assessing patient, he was informed of the patient had a tarry stool per security shift supervisor nurse. told his mental status is improving and now he is able to focus on staff when name is called or when asking for questions. no verbal orders given at this time.
[2020-08-24] MEDS ORDERED: Varibar Honey 250ml MC PRN (08:15)
[2020-08-24] MEDS ORDERED: Varibar Nectar 240ml MC PRN (08:15)
[2020-08-24] MEDS ORDERED: Varibar Thin Liquid powder 148gm MC PRN (08:15)
[2020-08-24] MEDS ORDERED: Varibar Pudding 230ml MC PRN (08:15)
--- NOTE | 2020-08-24 08:22 | NUR ---
Speech Pathology Note (Bedside Dysphagia Evaluation) Brief Note: Mr. Ibarra is a 50-year old male was found down on the street, and subsequently taken to ED [place] on 08/23/2020. Abnormal labs: WBC 12.6k, Platelet 136, K 5.7, CL 91, Co2 7, BUN 149, Creatine 15.5, ALT/AST: 74/133, T.B. 1.3, D.B 0.7 Ammonia 129. Initial troponin 0.151-0.4, BNP 35.000 CT Head: old/subacute right frontal cerebral infarct CXR: tunnel cath. no acute cardiopulmonary disease COVID 19: Negative What was done at ED: control A-fib RVR whihc baecame stable around 18:19, converted to NSR, hypotensive continue with pressor, HD completed around 23:35. The transferred to ICU. vasopressor off around 3AM Current Labs: WBC 15.3k, Na 135, K 3.5, CL 94, Co2 17, BUN 61, Creatine 7.6 Current vital signs: temp 97.5, HR 95, BP 114/70, SPO2 100% on 2 liter Findings: Mr. Ibarra is lethargic but able to wake him up. He is oriented x 1. He is able to state his name with slurred (Drunk Speech). His voice is intact. Given him Ice chips, sorbet he tolerated well. However given him water (Thin) he intermittently cough with s.s of penetration and aspiration. This is likely due to his delay motor process resulted in premature spillage into hypopharynx and laryngeal penetration. Pt remains encephalopathic through assessment. Interpretation: 1. Oropharyngeal Dysphagia with low level of alertness - Low level of alertness insetting of abnormal hepatic panel, electrolytes barb leukocytosis - History of right anterior circulatory cerebral infarct (CT head) on top of #1 2. remains risk of aspiration Plan: 1. Pureed and nectar thick liquid for now with aspiration precaution 2. Will likely advance diet to regular when he becomes more awake and alert PPAP COORDINATOR follow up peripherally for clinical assessment Shea Go
--- NOTE | 2020-08-24 09:43 | Nephrology Progress Note ---
Assessment/Plan Problem List: (1) ESRD (end stage renal disease) (2) Altered level of consciousness (3) Hyperkalemia, diminished renal excretion (4) Elevated LFTs (5) Troponin level elevated Assessment Plan August 24: Patient seen in ICU. Discussed with MARINA Tillman. Patient was dialyzed yesterday. Electrolyte abnormalities no much improved. Continue per consultants. Next dialysis tomorrow. Subjective ROS Limited/Unobtainable: No Constitutional: Reports: malaise, weakness Objective Objective Last 24 Hour Vital Signs Date Time Temp Pulse Resp B/P (MAP) Pulse Ox O2 Delivery O2 Flow Rate FiO2 08/24/20 08:00 95 08/24/20 08:00 98.4 104 21 104/63 (77) 100 08/24/20 08:00 Nasal Cannula 2.0 08/24/20 07:00 94 23 99/55 (70) 100 08/24/20 05:45 103 20 114/70 (85) 100 08/24/20 05:00 91 23 88/58 (68) 100 08/24/20 04:00 Nasal Cannula 2.0 08/24/20 04:00 97.5 91 17 96/48 (64) 100 08/24/20 03:36 100 08/24/20 03:00 91 14 106/70 (82) 100 08/24/20 02:30 86 20 132/78 (96) 100 08/24/20 02:00 86 22 110/62 (78) 100 08/24/20 01:30 90 22 129/77 (94) 99 08/24/20 01:00 84 18 134/70 (91) 99 08/24/20 00:30 82 18 132/71 (91) 100 08/24/20 00:00 Nasal Cannula 2.0 08/24/20 00:00 98.0 83 20 148/73 (98) 100 08/24/20 00:00 83 08/23/20 23:30 83 24 123/73 (90) 100 08/23/20 23:00 112/70 08/23/20 23:00 85 22 112/70 (84) 100 08/23/20 22:45 84 21 116/72 (87) 100 08/23/20 22:30 86 21 128/77 (94) 98 08/23/20 22:00 95 20 116/73 (87) 100 08/23/20 21:45 95 20 159/87 (111) 99 08/23/20 21:30 91 21 132/78 (96) 99 08/23/20 21:15 88 20 112/73 (86) 98 08/23/20 21:00 Nasal Cannula 2.0 08/23/20 21:00 Nasal Cannula 2.0 08/23/20 21:00 80 21 141/74 (96) 100 08/23/20 20:45 72 24 123/63 (83) 99 08/23/20 20:43 71 24 111/64 (80) 99 08/23/20 20:38 72 24 106/57 (73) 99 08/23/20 20:30 98.2 72 27 84/51 (62) 97 08/23/20 20:20 73 08/23/20 20:05 98.0 66 18 106/56 99 Room Air 08/23/20 19:27 97.6 74 18 104/57 98 Room Air 08/23/20 19:11 97.6 68 20 110/59 98 Room Air 08/23/20 18:53 72 20 99/50 98 Room Air 08/23/20 18:19 89 110/64 08/23/20 17:32 111 08/23/20 17:17 110 08/23/20 17:02 119 08/23/20 16:47 110 08/23/20 16:32 127 08/23/20 16:17 117 105/66 08/23/20 15:53 101/54 08/23/20 15:43 101/54 08/23/20 15:38 100/64 08/23/20 14:09 97.6 112 19 82/60 100 Room Air 08/23/20 13:45 142 116/51 08/23/20 12:30 98.2 132 30 116/72 100 Room Air 08/23/20 10:31 115 19 96/54 100 Room Air Intake and Output 08/23/20 08/24/20 19:00 07:00 Intake Total 135.0 ml Output Total 500 ml 0 ml Balance -500 ml 135.0 ml Intake IV Total 135.0 ml Output Urine Total 500 ml 0 ml # Bowel Movements 1 Current Medications Medications (Trade) Dose Ordered Sig/Sylvia Route PRN Reason Start Time Stop Time Status Last Admin Dose Admin Acetaminophen (Tylenol) 500 mg Q4H PRN ORAL Mild Pain (Pain Scale 1-3) 08/24/20 01:15 09/23/20 01:14 Barium Sulfate (Varibar Honey) 250 ml NOW PRN RAD 08/24/20 08:15 08/27/20 08:01 Barium Sulfate (Varibar [place]) 240 ml NOW PRN RAD 08/24/20 08:15 08/27/20 08:01 Barium Sulfate (Varibar Pudding) 230 ml NOW PRN RAD 08/24/20 08:15 08/27/20 08:01 Barium Sulfate (Varibar Thin Liquid powder) 148 gm NOW PRN RAD 08/24/20 08:15 08/27/20 08:01 Diltiazem HCl 125 mg/Dextrose 125 ml @ 0 mls/hr Q12H IVPB 08/23/20 16:06 08/24/20 16:06 08/23/20 16:17 Norepinephrine Bitartrate 250 ml @ 0 mls/hr Q24H IV 08/23/20 22:30 08/26/20 22:29 08/23/20 23:00 Pantoprazole (Protonix) 40 mg DAILY IVP 08/24/20 09:00 09/23/20 08:59 Laboratory Tests 08/23/20 12:00: Lactic Acid Level 1.60 08/24/20 04:00: White Blood Count 15.3H, Red Blood Count 3.14L, Hemoglobin 11.0L, Hematocrit 30.2L, Mean Corpuscular Volume 96, Mean Corpuscular Hemoglobin 35.0H, Mean Corpuscular Hemoglobin Concent 36.4H, Red Cell Distribution Width 14.2, Platelet Count 157, Mean Platelet Volume 9.4, Neutrophils (%) (Auto) , Lymphocytes (%) (Auto) , Monocytes (%) (Auto) , Eosinophils (%) (Auto) , Basophils (%) (Auto) , Prothrombin Time 11.3, Prothromb Time International Ratio 1.0, Sodium Level 135L , Potassium Level 3.5, Chloride Level 94L, Carbon Dioxide Level 17L, Anion Gap 24H, Blood Urea Nitrogen 61#H, Creatinine 7.6#H, Estimat Glomerular Filtration Rate 7.7, Glucose Level 81, Uric Acid 7.7H, Calcium Level 8.2L, Phosphorus Level 8.1H, Magnesium Level 2.4, Total Bilirubin 1.2H, Direct Bilirubin 0.6H, Gamma Glutamyl Transpeptidase 201H, Aspartate Amino Transf (AST/SGOT) 126H, Alanine Aminotransferase (ALT/SGPT) 75, Alkaline Phosphatase 116, Lactate Dehydrogenase 611H, Total Creatine Kinase 1833H, Troponin I 0.400H, C-Reactive Protein, Quantitative 18.8H, Pro-B-Type Natriuretic Peptide > 19897L, Total Protein 9.1H, Albumin 3.0L, Globulin 6.1, Albumin/Globulin Ratio 0.5L, Triglycerides Level 653H, Cholesterol Level 211H, LDL Cholesterol 82, HDL Cholesterol 26L, C holesterol/HDL Ratio 8.1H, Thyroid Stimulating Hormone (TSH) 2.742, Free Thyroxine 1.34, Hepatitis B Surface Antigen [Pending], Hepatitis C Antibody [Pending] Height (Feet): 5 Height (Inches): 6.00 Weight (Pounds): 121 General Appearance: no apparent distress Cardiovascular: tachycardia Respiratory/Chest: decreased breath sounds Abdomen: distended Alfredo Germain MD Aug 24, 2020 09:43
--- NOTE | 2020-08-24 09:47 | NUR ---
NURSE NOTES: [facility] nephrology called to inform of hemodialysis ordered for 08/25/20. awaiting for call back to confirm with hemodialysis nurse.
[2020-08-24] MEDS: Pantoprazole Inj IVP SCH (09:53)
--- NOTE | 2020-08-24 11:05 | NUR ---
NURSE NOTES: Dr. Fisher updated at the bedside he has converted to sinus rhythm during the morning shift. He has remained in sinus rhythm at 95-100 throughout the entire morning shift. he also remains off of Levophed and Cardizem drip. He was also informed of of troponin level of 0.400 along with BNP of >61180. no orders given at this time. patient remains lethargic and opens eyes when name is called or when shaken. his words remains garbled. patient remains NPO at this time, his heart rate remains at 92-99bpm with no arrhythmias noted.
--- NOTE | 2020-08-24 12:16 | Cardiac Electrophysiology PN ---
Assessment/Plan Assessment/Plan 1. Atrial fibrillation with rapid ventricular response. Converted to SR after started on Cardizem drip that is now DCed. Start Lopressor 25 po bid 2. Elevated troponin, likely due to sepsis and hypotension and tachycardia. EF 40% 3. CHF EF 40% On Lopressor and HD 3. End-stage renal disease and hyperkalemia. Hemodialysis per Dr. Germain. Patient already has right IJ PermCath. 4. Anemia. 5. Hyperkalemia. Received glucose and insulin. Subjective Subjective Cardizem drip and Levophed DCed. Now in SR in ICU. Confused off pressors. Troponin increased to 0.4. Had HD yesterday Objective Last 24 Hour Vital Signs Date Time Temp Pulse Resp B/P (MAP) Pulse Ox O2 Delivery O2 Flow Rate FiO2 08/24/20 11:00 107 27 107/60 (76) 97 08/24/20 10:00 99 23 103/55 (71) 97 08/24/20 09:00 95 28 98/55 (69) 93 08/24/20 08:00 95 08/24/20 08:00 98.4 104 21 104/63 (77) 100 08/24/20 08:00 Nasal Cannula 2.0 08/24/20 07:00 94 23 99/55 (70) 100 08/24/20 05:45 103 20 114/70 (85) 100 08/24/20 05:00 91 23 88/58 (68) 100 08/24/20 04:00 Nasal Cannula 2.0 08/24/20 04:00 97.5 91 17 96/48 (64) 100 08/24/20 03:36 100 08/24/20 03:00 91 14 106/70 (82) 100 08/24/20 02:30 86 20 132/78 (96) 100 08/24/20 02:00 86 22 110/62 (78) 100 08/24/20 01:30 90 22 129/77 (94) 99 08/24/20 01:00 84 18 134/70 (91) 99 08/24/20 00:30 82 18 132/71 (91) 100 08/24/20 00:00 Nasal Cannula 2.0 08/24/20 00:00 98.0 83 20 148/73 (98) 100 08/24/20 00:00 83 08/23/20 23:30 83 24 123/73 (90) 100 08/23/20 23:00 112/70 08/23/20 23:00 85 22 112/70 (84) 100 08/23/20 22:45 84 21 116/72 (87) 100 08/23/20 22:30 86 21 128/77 (94) 98 08/23/20 22:00 95 20 116/73 (87) 100 08/23/20 21:45 95 20 159/87 (111) 99 08/23/20 21:30 91 21 132/78 (96) 99 08/23/20 21:15 88 20 112/73 (86) 98 08/23/20 21:00 Nasal Cannula 2.0 08/23/20 21:00 Nasal Cannula 2.0 08/23/20 21:00 80 21 141/74 (96) 100 08/23/20 20:45 72 24 123/63 (83) 99 08/23/20 20:43 71 24 111/64 (80) 99 08/23/20 20:38 72 24 106/57 (73) 99 08/23/20 20:30 98.2 72 27 84/51 (62) 97 08/23/20 20:20 73 08/23/20 20:05 98.0 66 18 106/56 99 Room Air 08/23/20 19:27 97.6 74 18 104/57 98 Room Air 08/23/20 19:11 97.6 68 20 110/59 98 Room Air 08/23/20 18:53 72 20 99/50 98 Room Air 08/23/20 18:19 89 110/64 08/23/20 17:32 111 08/23/20 17:17 110 08/23/20 17:02 119 08/23/20 16:47 110 08/23/20 16:32 127 08/23/20 16:17 117 105/66 08/23/20 15:53 101/54 08/23/20 15:43 101/54 08/23/20 15:38 100/64 08/23/20 14:09 97.6 112 19 82/60 100 Room Air 08/23/20 13:45 142 116/51 08/23/20 12:30 98.2 132 30 116/72 100 Room Air Intake and Output 08/23/20 08/24/20 19:00 07:00 Intake Total 135.0 ml Output Total 500 ml 0 ml Balance -500 ml 135.0 ml Intake IV Total 135.0 ml Output Urine Total 500 ml 0 ml # Bowel Movements 1 Laboratory Tests Test 08/24/20 04:00 White Blood Count 15.3 K/UL (4.8-10.8) H Red Blood Count 3.14 M/UL (4.70-6.10) L Hemoglobin 11.0 G/DL (14.2-18.0) L Hematocrit 30.2 % (42.0-52.0) L Mean Corpuscular Volume 96 FL (80-99) Mean Corpuscular Hemoglobin 35.0 PG (27.0-31.0) H Mean Corpuscular Hemoglobin Concent 36.4 G/DL (32.0-36.0) H Red Cell Distribution Width 14.2 % (11.6-14.8) Platelet Count 157 K/UL (150-450) Mean Platelet Volume 9.4 FL (6.5-10.1) Neutrophils (%) (Auto) % (45.0-75.0) Lymphocytes (%) (Auto) % (20.0-45.0) Monocytes (%) (Auto) % (1.0-10.0) Eosinophils (%) (Auto) % (0.0-3.0) Basophils (%) (Auto) % (0.0-2.0) Prothrombin Time 11.3 SEC (9.30-11.50) Prothromb Time International Ratio 1.0 (0.9-1.1) Sodium Level 135 MMOL/L (136-145) L Potassium Level 3.5 MMOL/L (3.5-5.1) Chloride Level 94 MMOL/L (98-107) L Carbon Dioxide Level 17 MMOL/L (21-32) L Anion Gap 24 mmol/L (5-15) H Blood Urea Nitrogen 61 mg/dL (7-18) #H Creatinine 7.6 MG/DL (0.55-1.30) #H Estimat Glomerular Filtration Rate 7.7 mL/min (>60) Glucose Level 81 MG/DL (74-106) Uric Acid 7.7 MG/DL (2.6-7.2) H Calcium Level 8.2 MG/DL (8.5-10.1) L Phosphorus Level 8.1 MG/DL (2.5-4.9) H Magnesium Level 2.4 MG/DL (1.8-2.4) Total Bilirubin 1.2 MG/DL (0.2-1.0) H Direct Bilirubin 0.6 MG/DL (0.0-0.3) H Gamma Glutamyl Transpeptidase 201 U/L (5-85) H Aspartate Amino Transf (AST/SGOT) 126 U/L (15-37) H Alanine Aminotransferase (ALT/SGPT) 75 U/L (12-78) Alkaline Phosphatase 116 U/L (46-116) Lactate Dehydrogenase 611 U/L (81-234) H Total Creatine Kinase 1833 U/L (26-308) H Troponin I 0.400 ng/mL (0.000-0.056) C-Reactive Protein, Quantitative 18.8 mg/dL (0.00-0.90) H Pro-B-Type Natriuretic Peptide > 46384 pg/mL (0-125) H Total Protein 9.1 G/DL (6.4-8.2) H Albumin 3.0 G/DL (3.4-5.0) L Globulin 6.1 g/dL Albumin/Globulin Ratio 0.5 (1.0-2.7) L Triglycerides Level 653 MG/DL (30-150) H Cholesterol Level 211 MG/DL (< 200) H LDL Cholesterol 82 mg/dL (<100) HDL Cholesterol 26 MG/DL (40-60) L Cholesterol/HDL Ratio 8.1 (3.3-4.4) H Thyroid Stimulating Hormone (TSH) 2.742 uiU/mL (0.358-3.740) Free Thyroxine 1.34 NG/DL (0.76-1.46) Hepatitis B Surface Antigen Pending Hepatitis C Antibody Pending Microbiology Date/Time Source Procedure Growth Status 08/23/20 08:35 Nasopharynx SARS-CoV-2 RdRp Gene Assay - Final Complete Objective HEAD AND NECK: Positive JVD. LUNGS: Decreased breath sounds. CARDIOVASCULAR: Shows irregular and tachycardic. S1, S2 with no gallop. ABDOMEN: Soft. EXTREMITIES: Chronic skin changes and multiple sclerotic lesions suspicious for scabies. Kurtis Fisher MD Aug 24, 2020 12:16
--- NOTE | 2020-08-24 12:30 | NUR ---
CASE MANAGEMENT:REVIEW BIBA FROM STREET CC: ALOC SI: ALOC. HYPERKALEMIA. ELEVATED TROPONIN ESRD 97.9 112 20 82/60 97% ON RA WBC+12.6 CO2-7 BUN+149 CR+15.5 TROPONIN(+) 0.151 IS: HALDOL IM ATIVAN IM IV CA GLUCONATE IV INSULIN D50W IV NAHCO3 CT HEAD : TO ICU IS: CARDIZEM GTT
--- NOTE | 2020-08-24 13:48 | NUR ---
REPAIRER [employer] NOTE Pt is sleeping when attempted to meet w/ pt for psychosocial assessment. Per chart review, pt has not been verbally communicating w/ the team. SW will attempt when pt is more stable. No emergency contact listed on the facesheet. UDS positive for THC.
--- NOTE | 2020-08-24 14:05 | NUR ---
NURSE NOTES: Dr. oseguera updated regarding patient status and assessed at the bedside. made aware he has no infectious disease consult but he has already consulted Dr. Jean Carlos Adamson. also ordered to have a social consult to find family and place code status to full. no further orders given.
--- NOTE | 2020-08-24 14:07 | Diagnostic Imaging Report ---
Indication: Abnormal liver function tests and renal function tests, leukocytosis, anemia Technique: Stephens-scale and duplex images of the upper abdomen were obtained Comparison: none Findings: Gallbladder demonstrates gallstones. Gallbladder wall is somewhat thickened, measuring up to 8 mm in thickness Sonographic Elizondo's sign is negative. Common bile duct measures 3 mm in diameter. No intrahepatic biliary ductal dilatation. Liver demonstrates normal echogenicity, no focal abnormality. Portal vein and hepatic veins are patent. Pancreas is unremarkable. Spleen is unremarkable. Left kidney measures 10.7 cm in length. Right kidney measures 11.1 cm length. Both kidneys demonstrate slightly increased echogenicity. There is no hydronephrosis. No focal abnormality . Non-aneurysmal abdominal aorta . Impression: Cholelithiasis. Gallbladder wall thickening and hyperemia raises possibility of acute cholecystitis. Consider hepatobiliary nuclear scan if there is high clinical suspicion Negative for dilated bile ducts Increased renal echogenicity, could indicate medical renal disease
--- NOTE | 2020-08-24 14:15 | Diagnostic Imaging Report ---
Indication: Leg pain and shortness of breath Technique: Grayscale and duplex images of the bilateral lower extremity veins Comparison: None Findings: Bilaterally, grayscale and duplex images demonstrate no evidence of intraluminal thrombus. Normal phasic Doppler waveforms, demonstrating normal augmentation response and no evidence of valvular insufficiency. Greater saphenous vein(s) and tibial veins are patent. Normal compressibility. Note is made of a central venous catheter within the right common femoral vein Impression: Negative for evidence of lower extremity deep venous thrombosis bilaterally
--- NOTE | 2020-08-24 14:26 | Consultation ---
Consult Note Consult Note CONSULTING PHYSICIAN: Carlos Alberto Castellanos MD REFERRING PHYSICIAN: Lev Bhandari MD REASON FOR CONSULTATION: ICU management HISTORY OF PRESENT ILLNESS: Patient is a 50-year-old homeless man with unknown past medical history except that he has a dialysis access on his chest. he was found by paramedics on the street. Patient was grunting and moaning, was not able to provide any information. Patient was brought to the emergency room. While in the ER, he was found to have atrial fibrillation with rapid ventricular response with heart rate of 160s. Patient received 5 mg of IV metoprolol by the ER physician At the time of my evaluation, patient is unable to provide any information. Patient also was severely hyperkalemic and received calcium, insulin, and D50. REVIEW OF SYSTEMS: Cannot be obtained. PAST MEDICAL HISTORY: As mentioned above. FAMILY HISTORY: Noncontributory. SOCIAL HISTORY: Not clear. Patient was found on the street. PHYSICAL EXAMINATION: VITAL SIGNS: Show blood pressure is 116/51, pulse of 142, after metoprolol blood pressure 82/60, pulse 112. HEAD AND NECK: Positive JVD. LUNGS: Decreased breath sounds. CARDIOVASCULAR: Shows irregular and tachycardic. S1, S2 with no gallop. ABDOMEN: Soft. EXTREMITIES: Chronic skin changes and multiple sclerotic lesions LABORATORY AND DIAGNOSTIC DATA: His labs show white count of 12.7 hemoglobin 11.9, hematocrit 36, and platelet count 136. Sodium 133, potassium 5.7, BUN of 49, creatinine of 15.5, and carbon dioxide of only 7. Troponin is 0.151. Urine toxicology was positive for marijuana. ASSESSMENT AND PLAN: 1. Atrial fibrillation with rapid ventricular response. Currently off Cardizem 2. Elevated troponin, likely due to sepsis and hypotension and tachycardia. 3. End-stage renal disease and hyperkalemia. Hemodialysis per Dr. Germain. 4. Anemia. 5. Hyperkalemia. Received glucose and insulin. Carlos Alberto Castellanos M.D. Carlos Alberto Castellanos MD Aug 24, 2020 14:26
--- NOTE | 2020-08-24 14:48 | NUR ---
RADIOLOGY INTERVENTIONAL PHYSICIAN NOTE SW received a consult for locating family. RIDDHI spoke w/ Detective Vu from [facility] Missing Person [facility] [phone] that pt is NOT reported as missing. RIDDHI spoke w/ Silvana from [facility] office [phone] that pt is NOT conserved. There is no sufficient information in the chart other than and name. This SW will F/U when pt is more alert and awake to provide information.
--- NOTE | 2020-08-24 15:30 | NUR ---
NURSE NOTES: Dr. Adamson updated at the bedside on patient condition, blood cultures were drawn in Emergency room and are pending. he remains lethargic and moans when shaken and when name is called, he remains on bilateral soft restraint for attempting to pull at Kulwant catheter. will continue to monitor patient.
[2020-08-24] MEDS: Piperacillin/Tazobactam 2.25 GM in D5W 55 ML IV SCH (16:52)
[2020-08-24] MEDS ORDERED: Vancomycin 1gm/D5W 275ml IVPB ONE ×2 (17:00)
--- NOTE | 2020-08-24 17:00 | NUR ---
NURSE NOTES: Vancomycin and Zosyn infusing per Dr. Adamson order, awaiting for blood cultures to result. patient remains lethargic but open eyes to voice, remains on bilateral wrist restraint for pulling on central line hands remains warm and pink with skin intact.
--- NOTE | 2020-08-24 17:29 | Consultation ---
DATE OF CONSULTATION: 08/24/2020 INFECTIOUS DISEASE CONSULTATION CONSULTING PHYSICIAN: Jean Carlos Adamson MD REASON FOR CONSULTATION: Sepsis, systemic inflammatory response syndrome. HISTORY OF PRESENT ILLNESS: This 50-year-old male admitted yesterday with altered mental status. Patient was brought by paramedics when he was found in the street confused. He was hypokalemic. He has end-stage renal disease and had hemodialysis catheter at the time of admission. In ER, developed atrial fibrillation with rapid ventricular rate. Patient got Lopressor and converted to sinus rhythm, but became hypotensive. Patient was put on pressor and transferred to ICU. Today is off pressor. Remains confused and on restraints. PAST MEDICAL HISTORY: End-stage renal disease, on hemodialysis. He had the right IJ Permacath. ALLERGIES: No known drug allergy. MEDICATIONS: Metaproterenol, Protonix, Levophed that is off. Got diltiazem. SOCIAL HISTORY: Unobtainable. Seems homeless. REVIEW OF SYSTEMS: Unobtainable. PHYSICAL EXAMINATION: VITAL SIGNS: Temperature 99.9, pulse 102, blood pressure 98/58. HEAD AND NECK: Borup conjunctivae. HEART: Tachycardic. Has right IJ PermCath. LUNGS: Clear. ABDOMEN: Soft, flat. EXTREMITIES: No edema. SKIN: Has some rash. NEUROLOGIC: He is confused, on restraints. LABORATORY AND DIAGNOSTIC DATA: WBC 15.3 going up from 12.6, hemoglobin 11, hematocrit 30.2, platelets 157. Sodium 135, potassium 3.5, chloride 94, bicarb 17, BUN 61, creatinine 7.6. Uric acid is 7.7. Bilirubin 1.2. BNP more than 35,000. Troponin 0.151 that increased to 0.4. CRP elevated 18.8. Urine toxicology was positive for marijuana. Chest x-ray was negative. 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 Abdominal ultrasound showed cholelithiasis, gallbladder wall thickening and hyperemia, questionable acute cholecystitis. IMPRESSION: Sepsis or systemic inflammatory response syndrome with leukocytosis, and tachycardia. We will try to rule out hemodialysis line infection. Has cholelithiasis. We will try to rule out cholecystitis. Has end-stage renal disease, acidosis, elevated troponin, marijuana abuse. RECOMMENDATION: Patient is also started on vancomycin and Zosyn. We will do HIDA scan. We will follow up the cultures, which are negative. We will try to taper antibiotics. At the end of my exam, I thank Dr. Bhandari for involving me in the care of this patient. Jean Carlos Adamson M.D. DR: HASMUKH JOB#: [id number] CC: MITZI
--- NOTE | 2020-08-24 19:21 | NUR ---
NURSE HAND-OFF REPORT: Latest Vital Signs: Temperature 100.0 , Pulse 99 , B/P 98 /55 , Respiratory Rate 22 , O2 SAT 95 , Nasal Cannula, O2 Flow Rate 2.0 . Vital Sign Comment: EKG Rhythm: Sinus Rhythm Rhythm change?: N MD Notified?: - MD Response: Latest Grossman Fall Score: 50 Fall Risk: High Risk Safety Measures: Call light Within Reach, Bed Alarm Zone 1, Side Rails Side Rails x2, Bed position Low and Locked. Fall Precautions: Yellow Socks Yellow Gown Door Sign Patient Fall Education Report given to MARINA Stokes.
--- NOTE | 2020-08-24 20:30 | NUR ---
NURSE NOTES: Patient had a small black tarry like BM. Patient was cleaned with CHG soap and Permathrin 5% Lotion was also applied as prescribed. Tried to communicate with patient but he only responded to name by saying his name "Viraj". Patient seems to be oriented to place as he stated back "hospital" when asked where he was at. Attempted to feed patient his food but he only took about 2 spoons of mashed potatoes and 3 sips of his thickened apple juice and other attempts he seemed uninterested to eat at this time. Patient seemed to tolerate swallowing well. Patient does seem disoriented to some extent.. Patient was asked what he would like to drink, patient stated, "[place]-Light". Reality reorientation was provided to patient, will re-attempt to try to feed patient again at a later time and reassess his level of orientation. Vitals remains stable.
--- NOTE | 2020-08-24 21:11 | General Progress Note ---
Subjective ROS Limited/Unobtainable: Yes Allergies: Coded Allergies: No Known Allergies (Unverified , 08/23/20) Objective Last 24 Hour Vital Signs Date Time Temp Pulse Resp B/P (MAP) Pulse Ox O2 Delivery O2 Flow Rate FiO2 08/24/20 21:00 99 23 114/63 (80) 100 08/24/20 20:01 101 109/68 08/24/20 20:00 99.0 100 109/68 (82) 94 08/24/20 19:00 99 22 98/55 (69) 95 08/24/20 18:00 106 28 100/63 (75) 93 08/24/20 17:00 109 25 100/57 (71) 99 08/24/20 16:06 101 113/83 08/24/20 16:01 100.0 102 24 113/63 (80) 98 08/24/20 16:00 102 24 113/63 (80) 98 08/24/20 16:00 Nasal Cannula 2.0 08/24/20 16:00 102 08/24/20 15:00 102 23 98/58 (71) 99 08/24/20 14:00 102 25 108/63 (78) 97 08/24/20 13:00 106 24 117/63 (81) 97 08/24/20 12:01 99.9 100 22 105/63 (77) 99 08/24/20 12:00 102 08/24/20 12:00 101 23 105/63 (77) 99 08/24/20 12:00 Nasal Cannula 2.0 08/24/20 11:00 107 27 107/60 (76) 97 08/24/20 10:00 99 23 103/55 (71) 97 08/24/20 09:00 95 28 98/55 (69) 93 08/24/20 08:00 95 08/24/20 08:00 98.4 104 21 104/63 (77) 100 08/24/20 08:00 Nasal Cannula 2.0 08/24/20 07:00 94 23 99/55 (70) 100 08/24/20 05:45 103 20 114/70 (85) 100 08/24/20 05:00 91 23 88/58 (68) 100 08/24/20 04:00 Nasal Cannula 2.0 08/24/20 04:00 97.5 91 17 96/48 (64) 100 08/24/20 03:36 100 08/24/20 03:00 91 14 106/70 (82) 100 08/24/20 02:30 86 20 132/78 (96) 100 08/24/20 02:00 86 22 110/62 (78) 100 08/24/20 01:30 90 22 129/77 (94) 99 08/24/20 01:00 84 18 134/70 (91) 99 08/24/20 00:30 82 18 132/71 (91) 100 08/24/20 00:00 Nasal Cannula 2.0 08/24/20 00:00 98.0 83 20 148/73 (98) 100 08/24/20 00:00 83 08/23/20 23:30 83 24 123/73 (90) 100 08/23/20 23:00 112/70 08/23/20 23:00 85 22 112/70 (84) 100 08/23/20 22:45 84 21 116/72 (87) 100 08/23/20 22:30 86 21 128/77 (94) 98 08/23/20 22:00 95 20 116/73 (87) 100 08/23/20 21:45 95 20 159/87 (111) 99 08/23/20 21:30 91 21 132/78 (96) 99 08/23/20 21:15 88 20 112/73 (86) 98 Intake and Output 08/23/20 08/24/20 19:00 07:00 Intake Total 135.0 ml Output Total 500 ml 0 ml Balance -500 ml 135.0 ml Intake IV Total 135.0 ml Output Urine Total 500 ml 0 ml # Bowel Movements 1 Laboratory Tests 08/24/20 04:00: White Blood Count 15.3H, Red Blood Count 3.14L, Hemoglobin 11.0L, Hematocrit 30.2L, Mean Corpuscular Volume 96, Mean Corpuscular Hemoglobin 35.0H, Mean Bita uscular Hemoglobin Concent 36.4H, Red Cell Distribution Width 14.2, Platelet Count 157, Mean Platelet Volume 9.4, Neutrophils (%) (Auto) , Lymphocytes (%) (Auto) , Monocytes (%) (Auto) , Eosinophils (%) (Auto) , Basophils (%) (Auto) , Prothrombin Time 11.3, Prothromb Time International Ratio 1.0, Sodium Level 135L , Potassium Level 3.5, Chloride Level 94L, Carbon Dioxide Level 17L, Anion Gap 24H, Blood Urea Nitrogen 61#H, Creatinine 7.6#H, Estimat Glomerular Filtration Rate 7.7, Glucose Level 81, Uric Acid 7.7H, Calcium Level 8.2L, Phosphorus Level 8.1H, Magnesium Level 2.4, Total Bilirubin 1.2H, Direct Bilirubin 0.6H, Gamma Glutamyl Transpeptidase 201H, Aspartate Amino Transf (AST/SGOT) 126H, Alanine Aminotransferase (ALT/SGPT) 75, Alkaline Phosphatase 116, Lactate Dehydrogenase 611H, Total Creatine Kinase 1833H, Troponin I 0.400H, C-Reactive Protein, Quantitative 18.8H, Pro-B-Type Natriuretic Peptide > 51764T, Total Protein 9.1H, Albumin 3.0L, Globulin 6.1, Albumin/Globulin Ratio 0.5L, Triglycerides Level 653H, Cholesterol Level 211H, LDL Cholesterol 82, HDL Cholesterol 26L, Cholesterol/HDL Ratio 8.1H, Thyroid Stimulating Hormone (TSH) 2.742, Free Thyroxine 1.34, Hepatitis B Surface Antigen [Pending], Hepatitis C Antibody [Pending] Height (Feet): 5 Height (Inches): 6.00 Weight (Pounds): 121 Assessment/Plan Problem List: (1) ESRD (end stage renal disease) ICD Codes: N18.6 - End stage renal disease SNOMED: 05607090 (2) Troponin level elevated ICD Codes: R77.8 - Other specified abnormalities of plasma proteins SNOMED: 668796306, 075917259, 806082826 (3) Elevated LFTs ICD Codes: R79.89 - Other specified abnormal findings of blood chemistry SNOMED: 865754017, 852334288 (4) Hyperkalemia, diminished renal excretion ICD Codes: E87.5 - Hyperkalemia SNOMED: 31755374, 017534239, 173374331 (5) Altered level of consciousness ICD Codes: R40.4 - Transient alteration of awareness SNOMED: 2267733 Status: progressing Assessment/Plan: esrd on hd lethargic metabolic encephalopathy due to arf and elevated ammonia afebrile needs diaylsis and lactulose Lev Bhandari MD Aug 24, 2020 21:11
--- NOTE | 2020-08-24 21:40 | General Progress Note ---
Subjective Allergies: Coded Allergies: No Known Allergies (Unverified , 08/23/20) Subjective More awake this am gave some basic responses, including his name ammonia repeated - now normal range CPK markedly elevated passed swallow eval Objective Last 24 Hour Vital Signs Date Time Temp Pulse Resp B/P (MAP) Pulse Ox O2 Delivery O2 Flow Rate FiO2 08/24/20 21:00 99 23 114/63 (80) 100 08/24/20 20:01 101 109/68 08/24/20 20:00 113 08/24/20 20:00 99.0 100 109/68 (82) 94 08/24/20 20:00 Nasal Cannula 2.0 08/24/20 19:00 99 22 98/55 (69) 95 08/24/20 18:00 106 28 100/63 (75) 93 08/24/20 17:00 109 25 100/57 (71) 99 08/24/20 16:06 101 113/83 08/24/20 16:01 100.0 102 24 113/63 (80) 98 08/24/20 16:00 102 24 113/63 (80) 98 08/24/20 16:00 Nasal Cannula 2.0 08/24/20 16:00 102 08/24/20 15:00 102 23 98/58 (71) 99 08/24/20 14:00 102 25 108/63 (78) 97 08/24/20 13:00 106 24 117/63 (81) 97 08/24/20 12:01 99.9 100 22 105/63 (77) 99 08/24/20 12:00 102 08/24/20 12:00 101 23 105/63 (77) 99 08/24/20 12:00 Nasal Cannula 2.0 08/24/20 11:00 107 27 107/60 (76) 97 08/24/20 10:00 99 23 103/55 (71) 97 08/24/20 09:00 95 28 98/55 (69) 93 08/24/20 08:00 95 08/24/20 08:00 98.4 104 21 104/63 (77) 100 08/24/20 08:00 Nasal Cannula 2.0 08/24/20 07:00 94 23 99/55 (70) 100 08/24/20 05:45 103 20 114/70 (85) 100 08/24/20 05:00 91 23 88/58 (68) 100 08/24/20 04:00 Nasal Cannula 2.0 08/24/20 04:00 97.5 91 17 96/48 (64) 100 08/24/20 03:36 100 08/24/20 03:00 91 14 106/70 (82) 100 08/24/20 02:30 86 20 132/78 (96) 100 08/24/20 02:00 86 22 110/62 (78) 100 08/24/20 01:30 90 22 129/77 (94) 99 08/24/20 01:00 84 18 134/70 (91) 99 08/24/20 00:30 82 18 132/71 (91) 100 08/24/20 00:00 Nasal Cannula 2.0 08/24/20 00:00 98.0 83 20 148/73 (98) 100 08/24/20 00:00 83 08/23/20 23:30 83 24 123/73 (90) 100 08/23/20 23:00 112/70 08/23/20 23:00 85 22 112/70 (84) 100 08/23/20 22:45 84 21 116/72 (87) 100 08/23/20 22:30 86 21 128/77 (94) 98 08/23/20 22:00 95 20 116/73 (87) 100 08/23/20 21:45 95 20 159/87 (111) 99 Intake and Output 08/23/20 08/24/20 19:00 07:00 Intake Total 135.0 ml Output Total 500 ml 0 ml Balance -500 ml 135.0 ml IV Total 135.0 ml Output Urine Total 500 ml 0 ml # Bowel Movements 1 Laboratory Tests 08/24/20 04:00: White Blood Count 15.3H, Red Blood Count 3.14L, Hemoglobin 11.0L, Hematocrit 30.2L, Mean Corpuscular Volume 96, Mean Corpuscular Hemoglobin 35.0H, Mean Corpuscular Hemoglobin Concent 36.4H, Red Cell Distribution Width 14.2, Platelet Count 157, Mean Platelet Volume 9.4, Neutrophils (%) (Auto) , Lymphocytes (%) (Auto) , Monocytes (%) (Auto) , Eosinophils (%) (Auto) , Basophils (%) (Auto) , Prothrombin Time 11.3, Prothromb Time International Ratio 1.0, Sodium Level 135L , Potassium Level 3.5, Chloride Level 94L, Carbon Dioxide Level 17L, Anion Gap 24H, Blood Urea Nitrogen 61#H, Creatinine 7.6#H, Estimat Glomerular Filtration Rate 7.7, Glucose Level 81, Uric Acid 7.7H, Calcium Level 8.2L, Phosphorus Level 8.1H, Magnesium Level 2.4, Total Bilirubin 1.2H, Direct Bilirubin 0.6H, Gamma Glutamyl Transpeptidase 201H, Aspartate Amino Transf (AST/SGOT) 126H, Alanine Aminotransferase (ALT/SGPT) 75, Alkaline Phosphatase 116, Lactate Dehydrogenase 611H, Total Creatine Kinase 1833H, Troponin I 0.400H, C-Reactive Protein, Quantitative 18.8H, Pro-B-Type Natriuretic Peptide > 31312H, Total Protein 9.1H, Albumin 3.0L, Globulin 6.1, Albumin/Globulin Ratio 0.5L, Triglycerides Level 653H, Cholesterol Level 211H, LDL Cholesterol 82, HDL Cholesterol 26L, Cholesterol/HDL Ratio 8.1H, Thyroid Stimulating Hormone (TSH) 2.742, Free Thyroxine 1.34, Hepatitis B Surface Antigen [Pending], Hepatitis C Antibody [Pending] Height (Feet): 5 Height (Inches): 6.00 Weight (Pounds): 121 Objective Dishevelled man NCAT supple CTA RR abd soft no edema Assessment/Plan Status: progressing Assessment/Plan: Assessment - renal failure - Rhabdo - suspect toxic-metabolic encephalopathy - abnormal LFT - hep B/C pending - cholelithiasis, per abd ultrasound Recommendations - supportive care - HD - po diet as tolerated - follow Hep B?C Franklin Palomares MD Aug 24, 2020 21:40
--- NOTE | 2020-08-24 21:48 | NUR ---
NURSE NOTES: Patient repositioned in bed, patient seems to be very skirmish in bed moving around agitated. Attempted to release the restraints to assess how he would do without them but patient kept reaching his central line catheter and tugging along with this chest PermCath. Reality reorientation given. Re-attempted to feed patient but patient nodded head side to side uninterested to eat. Patient took only one sip of thickened fluids. Communicated with patient and asked questions but patient would only stare back and glare for long periods. Patient remains clean and dry. Will continue to monitor.
[2020-08-24] MEDS: Norepinephrine 4mg/NS Premix 250 ML IV SCH (22:30)
--- NOTE | 2020-08-24 23:43 | NUR ---
NURSE NOTES: released restraints for active range of motion excises. HR is 116 ST, temperature is 99.7F (axillary). Patient is slightly warm to touch. Reality reorientation provided. Talked to the patient but patient seems to just glare, patient does shout out "ouch" when we reposition patient but for the most part patient seems somewhat aware of surroundings. Patient can get restless at times. Blood pressure remains stable. Current BP is 141/62. Will continue
[2020-08-25] VITALS (24 sets, daily range): BP systolic 106–163; BP diastolic 66–110
--- NOTE | 2020-08-25 00:30 | NUR ---
NURSE NOTES: Patients temperature noted to be 100.5F. Cooling measures given. Patient given 500mg Tylenol PO for pain 12/01.
[2020-08-25] MEDS: Piperacillin/Tazobactam 2.25 GM in D5W 55 ML IV SCH ×3 (00:36→17:34)
--- NOTE | 2020-08-25 02:00 | NUR ---
NURSE NOTES: Patient restless and agitated. Patient does not communicate very much other than some moans here and there. Patient continues to have fevers. Current temperature is 101.F Patient was given a cooling bath and other cooling measures. Attempted to give patient thickened oral fluids but patient would cough and sometimes hold fluids in mouth. Patient seems to be lethargic at this point to give anything orally. NGT was inserted successfully without incident. Patients HR is 115 ST, temperature is 101F and hot to touch, RR are 16, Spo2 is 100% with 2L NC, pain assessment via FLACC score is 0/10, BP is 147/82. Will continue to monitor.
--- NOTE | 2020-08-25 04:00 | NUR ---
NURSE NOTES: Patient reassessed and still lethargic. Released restraints for active range of motion however patient would attempt to reach for NGT and other lines. Patient still is hot to touch. Temperature now is 100.8F (ax). Patient was given another cooling bath and cool packs was applied as well. Central line dressing was changed using aseptic technique. Patient had another black tarry like stool. Will continue to monitor.
[2020-08-25 05:57] LABS: HEMATOCRIT 27.3 % (42.0-52.0); HEMOGLOBIN 9.7 G/DL (14.2-18.0); MEAN CORPUSCULAR VOLUME 95 FL (80-99); PLATELET COUNT 127 K/UL (150-450); RED BLOOD COUNT 2.87 M/UL (4.70-6.10); RED CELL DISTRIBUTION WIDTH 14.7 % (11.6-14.8); WHITE BLOOD COUNT 15.8 K/UL (4.8-10.8)
--- NOTE | 2020-08-25 06:00 | NUR ---
NURSE NOTES: Patient is sleeping at this time. Cool packs placed on patient. Patient continues to have low grade fevers. Current temperature is 100.6F, HR is 102 ST, 2L NC at 100% SpO2, RR 16, BP 131/79. Will continue to monitor.
[2020-08-25 06:09] LABS: ALBUMIN 2.5 G/DL (3.4-5.0); ALBUMIN/GLOBULIN RATIO 0.4 (1.0-2.7); CALCIUM 7.6 MG/DL (8.5-10.1); CREATININE 9.9 MG/DL (0.55-1.30); POTASSIUM 3.4 MMOL/L (3.5-5.1)
--- NOTE | 2020-08-25 07:14 | Diagnostic Imaging Report ---
EXAM: XR Abdomen, 2 Views CLINICAL HISTORY: NG tube placement TECHNIQUE: Frontal view of the abdomen/pelvis with upright view of the abdomen. COMPARISON: No relevant prior studies available. IMPRESSION: Feeding tube terminates in the mid to distal stomach.
--- NOTE | 2020-08-25 07:30 | NUR ---
NURSE NOTES: Patient received from Kike GRAY. Patient stable at this time. AOx0, not responding to name or voice, unable to follow commands. SR on potline monitor with distant cardiac sounds. Breath sounds diminished. RR even and unlabored on 2L NC with spO2 100%. Bowel sounds active. NGT noted to LT nare. Bolden in place with yellow urine. Radial pulses bounding. Trace edema noted to BL feet. Noted nails missing from some toes of LT foot. Rash noted from skin but appears healed and scabed. Side rails upx2, call light within reach, bed low and locked. BL soft wrist restraints on with good ROM, sensation and circulation. Patient restless and unable to reorient. Restraints still medically necessary.
[2020-08-25] MEDS: Pantoprazole Inj IVP SCH (08:33)
--- NOTE | 2020-08-25 09:38 | NUR ---
NURSE NOTES: Patient stable at this time with no s/sx of pain or distress. No change in mental status.
--- NOTE | 2020-08-25 10:12 | Infectious Diseases Prog Note ---
Assessment/Plan Assessment/Plan IMPRESSION: Sepsis or systemic inflammatory response syndrome Cholelithiasis. We will try to rule out cholecystitis. End-stage renal disease, Acidosis, Elevated troponin, Marijuana abuse. Elevated Hep C antibody Likely scabies, RECOMMENDATION: Continue vancomycin and Zosyn. Got Elimite last night HIDA scan. We will follow up the cultures, Subjective ROS Limited/Unobtainable: Yes Constitutional: Reports: fever, other - [id number] Neurologic: Reports: confusion, other - on restraint Allergies: Coded Allergies: No Known Allergies (Unverified , 08/23/20) Objective Last 24 Hour Vital Signs Date Time Temp Pulse Resp B/P (MAP) Pulse Ox O2 Delivery O2 Flow Rate FiO2 08/25/20 10:00 79 19 113/74 (87) 100 08/25/20 09:00 82 20 110/70 (83) 100 08/25/20 08:40 90 20 125/78 (94) 100 08/25/20 08:33 88 106/67 08/25/20 08:00 99.1 90 21 106/67 (80) 100 08/25/20 07:00 97 22 109/71 (84) 100 08/25/20 06:00 100.6 107 25 131/79 (96) 99 08/25/20 05:00 108 25 147/82 (103) 98 08/25/20 04:00 109 08/25/20 04:00 Nasal Cannula 2.0 08/25/20 04:00 100.8 115 25 130/77 (94) 97 08/25/20 03:00 117 20 129/80 (96) 95 08/25/20 02:00 101.0 112 14 116/73 (87) 97 08/25/20 01:00 117 20 122/66 (84) 93 08/25/20 00:00 100.5 111 25 125/69 (87) 96 08/25/20 00:00 Nasal Cannula 2.0 08/24/20 23:00 110 21 141/82 (101) 93 08/24/20 22:30 124/71 08/24/20 22:00 107 24 124/71 (88) 95 08/24/20 21:00 99 23 114/63 (80) 100 08/24/20 20:01 101 109/68 08/24/20 20:00 113 08/24/20 20:00 99.0 100 109/68 (82) 94 08/24/20 20:00 Nasal Cannula 2.0 08/24/20 19:00 99 22 98/55 (69) 95 08/24/20 18:00 106 28 100/63 (75) 93 08/24/20 17:00 109 25 100/57 (71) 99 08/24/20 16:06 101 113/83 08/24/20 16:01 100.0 102 24 113/63 (80) 98 08/24/20 16:00 102 24 113/63 (80) 98 08/24/20 16:00 Nasal Cannula 2.0 08/24/20 16:00 102 08/24/20 15:00 102 23 98/58 (71) 99 08/24/20 14:00 102 25 108/63 (78) 97 08/24/20 13:00 106 24 117/63 (81) 97 08/24/20 12:01 99.9 100 22 105/63 (77) 99 08/24/20 12:00 102 08/24/20 12:00 101 23 105/63 (77) 99 08/24/20 12:00 Nasal Cannula 2.0 08/24/20 11:00 107 27 107/60 (76) 97 Height (Feet): 5 Height (Inches): 6.00 Weight (Pounds): 121 HEENT: mucous membranes moist Respiratory/Chest: lungs clear Cardiovascular: normal rate, other - R permacath Abdomen: soft, non tender, other - NG tube Extremities: no edema Skin: rash Neurologic/Psychiatric: disoriented, other Microbiology Date/Time Source Procedure Growth Status 08/23/20 12:00 Rectum Received 08/23/20 08:35 Nasopharynx SARS-CoV-2 RdRp Gene Assay - Final Complete 08/23/20 08:15 Blood Blood Culture - Preliminary NO GROWTH AFTER 24 HOURS Resulted 08/23/20 08:05 Blood Blood Culture - Preliminary NO GROWTH AFTER 24 HOURS Resulted Laboratory Tests Test 08/25/20 04:30 White Blood Count 15.8 K/UL (4.8-10.8) H Red Blood Count 2.87 M/UL (4.70-6.10) L Hemoglobin 9.7 G/DL (14.2-18.0) L Hematocrit 27.3 % (42.0-52.0) L Mean Corpuscular Volume 95 FL (80-99) Mean Corpuscular Hemoglobin 34.0 PG (27.0-31.0) H Mean Corpuscular Hemoglobin Concent 35.7 G/DL (32.0-36.0) Red Cell Distribution Width 14.7 % (11.6-14.8) Platelet Count 127 K/UL (150-450) L Mean Platelet Volume 7.9 FL (6.5-10.1) Neutrophils (%) (Auto) % (45.0-75.0) Lymphocytes (%) (Auto) % (20.0-45.0) Monocytes (%) (Auto) % (1.0-10.0) Eosinophils (%) (Auto) % (0.0-3.0) Basophils (%) (Auto) % (0.0-2.0) Differential Total Cells Counted 100 Neutrophils % (Manual) 61 % (45-75) Lymphocytes % (Manual) 11 % (20-45) L Monocytes % (Manual) 4 % (1-10) Eosinophils % (Manual) 0 % (0-3) Basophils % (Manual) 0 % (0-2) Band Neutrophils 24 % (0-8) H Platelet Estimate Decreased L Platelet Morphology Normal Red Blood Cell Morphology Hypochromasia Anisocytosis 1+ Sodium Level 138 MMOL/L (136-145) Potassium Level 3.4 MMOL/L (3.5-5.1) L Chloride Level 98 MMOL/L (98-107) Carbon Dioxide Level 18 MMOL/L (21-32) L Anion Gap 22 mmol/L (5-15) H Blood Urea Nitrogen 89 mg/dL (7-18) H Creatinine 9.9 MG/DL (0.55-1.30) H Estimat Glomerular Filtration Rate 5.7 mL/min (>60) Glucose Level 227 MG/DL (74-106) #H Calcium Level 7.6 MG/DL (8.5-10.1) L Total Bilirubin 1.0 MG/DL (0.2-1.0) Aspartate Amino Transf (AST/SGOT) 99 U/L (15-37) H Alanine Aminotransferase (ALT/SGPT) 63 U/L (12-78) Alkaline Phosphatase 90 U/L (46-116) Troponin I 0.676 ng/mL (0.000-0.056) Total Protein 8.1 G/DL (6.4-8.2) Albumin 2.5 G/DL (3.4-5.0) L Globulin 5.6 g/dL Albumin/Globulin Ratio 0.4 (1.0-2.7) L Current Medications Medications (Trade) Dose Ordered Sig/Sylvia Route PRN Reason Start Time Stop Time Status Last Admin Dose Admin Acetaminophen (Tylenol) 500 mg Q4H PRN ORAL Mild Pain (Pain Scale 1-3) 08/24/20 01:15 09/23/20 01:14 08/25/20 00:36 Barium Sulfate (Varibar Honey) 250 ml NOW PRN MC RAD 08/24/20 08:15 08/27/20 08:01 Barium Sulfate (Varibar [place]) 240 ml NOW PRN MC RAD 08/24/20 08:15 08/27/20 08:01 Barium Sulfate (Varibar Pudding) 230 ml NOW PRN RAD 08/24/20 08:15 08/27/20 08:01 Barium Sulfate (Varibar Thin Liquid powder) 148 gm NOW PRN MC RAD 08/24/20 08:15 08/27/20 08:01 Metoprolol Tartrate (Lopressor) 25 mg Q12HR ORAL 08/24/20 21:00 11/22/20 20:59 08/25/20 08:33 Norepinephrine Bitartrate 250 ml @ 0 mls/hr Q24H IV 08/23/20 22:30 08/26/20 22:29 08/23/20 23:00 Pantoprazole (Protonix) 40 mg DAILY IVP 08/24/20 09:00 09/23/20 08:59 08/25/20 08:33 Piperacillin Sod/ Tazobactam Sod 2.25 gm/Dextrose 55 ml @ 110 mls/hr Q8H IV 08/24/20 17:00 08/31/20 16:59 08/25/20 08:33 Vancomycin HCl ([facility] pharmacy to dose) 1 ea DAILY PRN MISC Per rx protocol 08/24/20 15:30 09/23/20 15:29 Jean Carlos Adamson MD Aug 25, 2020 10:12
--- NOTE | 2020-08-25 10:47 | NUR ---
NURSE NOTES: No change in patient status.
--- NOTE | 2020-08-25 10:51 | Pulmonology Progress Note ---
Subjective ROS Limited/Unobtainable: Yes Interval Events: None new Constitutional: Reports: fever, other - [id number] HEENT: Repors: no symptoms Respiratory: Reports: no symptoms Cardiovascular: Reports: no symptoms Gastrointestinal/Abdominal: Reports: no symptoms Allergies: Coded Allergies: No Known Allergies (Unverified , 08/23/20) Objective Last 24 Hour Vital Signs Date Time Temp Pulse Resp B/P (MAP) Pulse Ox O2 Delivery O2 Flow Rate FiO2 08/25/20 10:00 79 19 113/74 (87) 100 08/25/20 09:00 82 20 110/70 (83) 100 08/25/20 08:40 90 20 125/78 (94) 100 08/25/20 08:33 88 106/67 08/25/20 08:00 99.1 90 21 106/67 (80) 100 08/25/20 08:00 Nasal Cannula 2.0 08/25/20 07:00 97 22 109/71 (84) 100 08/25/20 06:00 100.6 107 25 131/79 (96) 99 08/25/20 05:00 108 25 147/82 (103) 98 08/25/20 04:00 109 08/25/20 04:00 Nasal Cannula 2.0 08/25/20 04:00 100.8 115 25 130/77 (94) 97 08/25/20 03:00 117 20 129/80 (96) 95 08/25/20 02:00 101.0 112 14 116/73 (87) 97 08/25/20 01:00 117 20 122/66 (84) 93 08/25/20 00:00 100.5 111 25 125/69 (87) 96 08/25/20 00:00 Nasal Cannula 2.0 08/24/20 23:00 110 21 141/82 (101) 93 08/24/20 22:30 124/71 08/24/20 22:00 107 24 124/71 (88) 95 08/24/20 21:00 99 23 114/63 (80) 100 08/24/20 20:01 101 109/68 08/24/20 20:00 113 08/24/20 20:00 99.0 100 109/68 (82) 94 08/24/20 20:00 Nasal Cannula 2.0 08/24/20 19:00 99 22 98/55 (69) 95 08/24/20 18:00 106 28 100/63 (75) 93 08/24/20 17:00 109 25 100/57 (71) 99 08/24/20 16:06 101 113/83 08/24/20 16:01 100.0 102 24 113/63 (80) 98 08/24/20 16:00 102 24 113/63 (80) 98 08/24/20 16:00 Nasal Cannula 2.0 08/24/20 16:00 102 08/24/20 15:00 102 23 98/58 (71) 99 08/24/20 14:00 102 25 108/63 (78) 97 08/24/20 13:00 106 24 117/63 (81) 97 08/24/20 12:01 99.9 100 22 105/63 (77) 99 08/24/20 12:00 102 08/24/20 12:00 101 23 105/63 (77) 99 08/24/20 12:00 Nasal Cannula 2.0 08/24/20 11:00 107 27 107/60 (76) 97 Intake and Output 08/24/20 08/25/20 19:00 07:00 Intake Total 440.708 ml 90 ml Output Total 0 ml 0 ml Balance 440.708 ml 90 ml Intake Oral 35 ml IV Total 330.708 ml 55 ml Other 110 ml Output Urine Total 0 ml 0 ml # Bowel Movements 1 3 General Appearance: no acute distress HEENT: normocephalic Respiratory: chest wall non-tender, lungs clear Cardiovascular: normal peripheral pulses Abdomen: normal bowel sounds Microbiology Date/Time Source Procedure Growth Status 08/23/20 12:00 Rectum Received 08/23/20 08:35 Nasopharynx SARS-CoV-2 RdRp Gene Assay - Final Complete 08/23/20 08:15 Blood Blood Culture - Preliminary NO GROWTH AFTER 24 HOURS Resulted 08/23/20 08:05 Blood Blood Culture - Preliminary NO GROWTH AFTER 24 HOURS Resulted Laboratory Tests 08/25/20 04:30: White Blood Count 15.8H, Red Blood Count 2.87L, Hemoglobin 9.7L, Hematocrit 27.3L, Mean Corpuscular Volume 95, Mean Corpuscular Hemoglobin 34.0H, Mean Corpuscular Hemoglobin Concent 35.7, Red Cell Distribution Width 14.7, Platelet Count 127L, Mean Platelet Volume 7.9, Neutrophils (%) (Auto) , Lymphocytes (%) (Auto) , Monocytes (%) (Auto) , Eosinophils (%) (Auto) , Basophils (%) (Auto) , Differential Total Cells Counted 100, Neutrophils % (Manual) 61, Lymphocytes % (Manual) 11L, Monocytes % (Manual) 4, Eosinophils % (Manual) 0, Basophils % (Manual) 0, Band Neutrophils 24H, Platelet Estimate DecreasedL, Platelet Morphology Normal, Red Blood Cell Morphology , Hypochromasia , Anisocytosis 1+, Sodium Level 138, Potassium Level 3.4L, Chloride Level 98, Carbon Dioxide Level 18L, Anion Gap 22H, Blood Urea Nitrogen 89H, Creatinine 9.9H, Estimat Glomerular Filtration Rate 5.7, Glucose Level 227#H, Calcium Level 7.6L, Total Bilirubin 1.0, Aspartate Amino Transf (AST/SGOT) 99H, Alanine Aminotransferase (ALT/SGPT) 63, Alkaline Phosphatase 90, Troponin I 0.676H, Total Protein 8.1, Albumin 2.5L, Globulin 5.6, Albumin/Globulin Ratio 0.4L Current Medications Medications (Trade) Dose Ordered Sig/Sylvia Route PRN Reason Start Time Stop Time Status Last Admin Dose Admin Acetaminophen (Tylenol) 500 mg Q4H PRN ORAL Mild Pain (Pain Scale 1-3) 08/24/20 01:15 09/23/20 01:14 08/25/20 00:36 Barium Sulfate (Varibar Honey) 250 ml NOW PRN MC RAD 08/24/20 08:15 08/27/20 08:01 Barium Sulfate (Varibar [place]) 240 ml NOW PRN MC RAD 08/24/20 08:15 08/27/20 08:01 Barium Sulfate (Varibar Pudding) 230 ml NOW PRN MC RAD 08/24/20 08:15 08/27/20 08:01 Barium Sulfate (Varibar Thin Liquid powder) 148 gm NOW PRN RAD 08/24/20 08:15 08/27/20 08:01 Metoprolol Tartrate (Lopressor) 25 mg Q12HR ORAL 08/24/20 21:00 11/22/20 20:59 08/25/20 08:33 Norepinephrine Bitartrate 250 ml @ 0 mls/hr Q24H IV 08/23/20 22:30 08/26/20 22:29 08/23/20 23:00 Pantoprazole (Protonix) 40 mg DAILY IVP 08/24/20 09:00 09/23/20 08:59 08/25/20 08:33 Piperacillin Sod/ Tazobactam Sod 2.25 gm/Dextrose 55 ml @ 110 mls/hr Q8H IV 08/24/20 17:00 08/31/20 16:59 08/25/20 08:33 Vancomycin HCl ([facility] pharmacy to dose) 1 ea DAILY PRN MISC Per rx protocol 08/24/20 15:30 09/23/20 15:29 Assessment/Plan Assessment/Plan ASSESSMENT AND PLAN: 1. Atrial fibrillation with rapid ventricular response. Currently off Cardizem 2. Elevated troponin, likely due to sepsis and hypotension and tachycardia. 3. End-stage renal disease and hyperkalemia. Hemodialysis per Dr. Germain. 4. Anemia. 5. Hyperkalemia. Received glucose and insulin. 6. Hepatic encephalopathy; continue lactulose Continue to monitor for hypotension Saturating well on low flow O2 Ada Sofai Omar Syed MD Aug 25, 2020 10:51
--- NOTE | 2020-08-25 11:32 | NUR ---
NURSE NOTES: Patient dialyzed now. VSS. Addendum: 08/25/20 at 1133 by RADU YUNG RN Received order to start feeding. Will begin after dialysis is over.
--- NOTE | 2020-08-25 13:24 | NUR ---
CIRCULATION LIBRARIAN NOTE Pt is awake, alert to his name. Pt made eye contact w/ this SW. However, pt was selectively mute when this SW attempted to obtain psychosocial information including living situation, emergency contact, etc. SW will attempt again.
--- NOTE | 2020-08-25 14:00 | NUR ---
NURSE NOTES: Patient now awake and alert to self. Extremely restless tossing all bedding and pillows. Patient soiled but unable to clean at this time due to dialysis. Will clean once finished.
--- NOTE | 2020-08-25 14:06 | Nephrology Progress Note ---
Assessment/Plan Problem List: (1) ESRD (end stage renal disease) (2) Altered level of consciousness (3) Hyperkalemia, diminished renal excretion (4) Elevated LFTs (5) Troponin level elevated Assessment Plan August 25: Discussed with MARINA Salinas. Due for dialysis today. Continue per consultants. Waiting for blood culture results. August 24: Patient seen in ICU. Discussed with MARINA Tillman. Patient was dialyzed yesterday. Electrolyte abnormalities no much improved. Continue per consultants. Next dialysis tomorrow. Subjective ROS Limited/Unobtainable: No Objective Objective Last 24 Hour Vital Signs Date Time Temp Pulse Resp B/P (MAP) Pulse Ox O2 Delivery O2 Flow Rate FiO2 08/25/20 13:00 98.9 93 21 139/69 (92) 93 08/25/20 12:00 Nasal Cannula 2.0 08/25/20 12:00 86 20 127/79 (95) 92 08/25/20 12:00 87 08/25/20 11:32 88 08/25/20 11:00 86 19 120/82 (95) 94 08/25/20 10:00 79 19 113/74 (87) 100 08/25/20 09:00 82 20 110/70 (83) 100 08/25/20 08:40 90 20 125/78 (94) 100 08/25/20 08:33 88 106/67 08/25/20 08:00 99.1 90 21 106/67 (80) 100 08/25/20 08:00 Nasal Cannula 2.0 08/25/20 07:41 92 08/25/20 07:00 97 22 109/71 (84) 100 08/25/20 06:00 100.6 107 25 131/79 (96) 99 08/25/20 05:00 108 25 147/82 (103) 98 08/25/20 04:00 109 08/25/20 04:00 Nasal Cannula 2.0 08/25/20 04:00 100.8 115 25 130/77 (94) 97 08/25/20 03:00 117 20 129/80 (96) 95 08/25/20 02:00 101.0 112 14 116/73 (87) 97 08/25/20 01:00 117 20 122/66 (84) 93 08/25/20 00:00 100.5 111 25 125/69 (87) 96 08/25/20 00:00 Nasal Cannula 2.0 08/24/20 23:00 110 21 141/82 (101) 93 08/24/20 22:30 124/71 08/24/20 22:00 107 24 124/71 (88) 95 08/24/20 21:00 99 23 114/63 (80) 100 08/24/20 20:01 101 109/68 08/24/20 20:00 113 08/24/20 20:00 99.0 100 109/68 (82) 94 08/24/20 20:00 Nasal Cannula 2.0 08/24/20 19:00 99 22 98/55 (69) 95 08/24/20 18:00 106 28 100/63 (75) 93 08/24/20 17:00 109 25 100/57 (71) 99 08/24/20 16:06 101 113/83 08/24/20 16:01 100.0 102 24 113/63 (80) 98 08/24/20 16:00 102 24 113/63 (80) 98 08/24/20 16:00 Nasal Cannula 2.0 08/24/20 16:00 102 08/24/20 15:00 102 23 98/58 (71) 99 Intake and Output 08/24/20 08/25/20 19:00 07:00 Intake Total 440.708 ml 90 ml Output Total 0 ml 0 ml Balance 440.708 ml 90 ml Intake Oral 35 ml IV Total 330.708 ml 55 ml Other 110 ml Output Urine Total 0 ml 0 ml # Bowel Movements 1 3 Current Medications Medications (Trade) Dose Ordered Sig/Sylvia Route PRN Reason Start Time Stop Time Status Last Admin Dose Admin Acetaminophen (Tylenol) 500 mg Q4H PRN ORAL Mild Pain (Pain Scale 1-3) 08/24/20 01:15 09/23/20 01:14 08/25/20 00:36 Barium Sulfate (Varibar Honey) 250 ml NOW PRN MC RAD 08/24/20 08:15 08/27/20 08:01 Barium Sulfate (Varibar [place]) 240 ml NOW PRN MC RAD 08/24/20 08:15 08/27/20 08:01 Barium Sulfate (Varibar Pudding) 230 ml NOW PRN MC RAD 08/24/20 08:15 08/27/20 08:01 Barium Sulfate (Varibar Thin Liquid powder) 148 gm NOW PRN MC RAD 08/24/20 08:15 08/27/20 08:01 Metoprolol Tartrate (Lopressor) 25 mg Q12HR ORAL 08/24/20 21:00 11/22/20 20:59 08/25/20 08:33 Norepinephrine Bitartrate 250 ml @ 0 mls/hr Q24H IV 08/23/20 22:30 08/26/20 22:29 08/23/20 23:00 Pantoprazole (Protonix) 40 mg DAILY IVP 08/24/20 09:00 09/23/20 08:59 08/25/20 08:33 Piperacillin Sod/ Tazobactam Sod 2.25 gm/Dextrose 55 ml @ 110 mls/hr Q8H IV 08/24/20 17:00 08/31/20 16:59 08/25/20 08:33 Vancomycin [facility] ([facility]) 1 ea DAILY PRN MISC Per rx protocol 08/24/20 15:30 09/23/20 15:29 Laboratory Tests 08/25/20 04:30: White Blood Count 15.8H, Red Blood Count 2.87L, Hemoglobin 9.7L, Hematocrit 27.3L, Mean Corpuscular Volume 95, Mean Corpuscular Hemoglobin 34.0H, Mean Corpuscular Hemoglobin Concent 35.7, Red Cell Distribution Width 14.7, Platelet Count 127L, Mean Platelet Volume 7.9, Neutrophils (%) (Auto) , Lymphocytes (%) (Auto) , Monocytes (%) (Auto) , Eosinophils (%) (Auto) , Basophils (%) (Auto) , Differential Total Cells Counted 100, Neutrophils % (Manual) 61, Lymphocytes % (Manual) 11L, Monocytes % (Manual) 4, Eosinophils % (Manual) 0, Basophils % (Manual) 0, Band Neutrophils 24H, Platelet Estimate DecreasedL, Platelet Morphology Normal, Red Blood Cell Morphology , Hypochromasia , Anisocytosis 1+, Sodium Level 138, Potassium Level 3.4L, Chloride Level 98, Carbon Dioxide Level 18L, Anion Gap 22H, Blood Urea Nitrogen 89H, Creatinine 9.9H, Estimat Glomerular Filtration Rate 5.7, Glucose Level 227#H, Calcium Level 7.6L, Total Bilirubin 1.0, Aspartate Amino Transf (AST/SGOT) 99H, Alanine Aminotransferase (ALT/SGPT) 63, Alkaline Phosphatase 90, Troponin I 0.676H, Total Protein 8.1, Albumin 2.5L, Globulin 5.6, Albumin/Globulin Ratio 0.4L Height (Feet): 5 Height (Inches): 6.00 Weight (Pounds): 121 General Appearance: no apparent distress EENT: other - On nasal cannula Cardiovascular: normal rate Respiratory/Chest: decreased breath sounds Abdomen: soft Alfredo Germain MD Aug 25, 2020 14:06
--- NOTE | 2020-08-25 15:35 | Cardiac Electrophysiology PN ---
Assessment/Plan Assessment/Plan 1. Atrial fibrillation with rapid ventricular response. Converted to SR after started on Cardizem drip that is now DCed. On Lopressor 25 po bid 2. Elevated troponin, likely due to sepsis and hypotension and tachycardia. EF 40% 3. CHF EF 40% On Lopressor and HD 3. End-stage renal disease and hyperkalemia. Hemodialysis per Dr. Germain. Patient already has right IJ PermCath. 4. Anemia. 5. Hyperkalemia. Received glucose and insulin. Subjective Subjective Cardizem drip and Levophed DCed yesterday. Now in SR in ICU. Confused off pressors. Troponin increased to 0.4. Getting HD Objective Last 24 Hour Vital Signs Date Time Temp Pulse Resp B/P (MAP) Pulse Ox O2 Delivery O2 Flow Rate FiO2 08/25/20 13:00 98.9 93 21 139/69 (92) 93 08/25/20 12:00 Nasal Cannula 2.0 08/25/20 12:00 86 20 127/79 (95) 92 08/25/20 12:00 87 08/25/20 11:32 88 08/25/20 11:00 86 19 120/82 (95) 94 08/25/20 10:00 79 19 113/74 (87) 100 08/25/20 09:00 82 20 110/70 (83) 100 08/25/20 08:40 90 20 125/78 (94) 100 08/25/20 08:33 88 106/67 08/25/20 08:00 99.1 90 21 106/67 (80) 100 08/25/20 08:00 Nasal Cannula 2.0 08/25/20 07:41 92 08/25/20 07:00 97 22 109/71 (84) 100 08/25/20 06:00 100.6 107 25 131/79 (96) 99 08/25/20 05:00 108 25 147/82 (103) 98 08/25/20 04:00 109 08/25/20 04:00 Nasal Cannula 2.0 08/25/20 04:00 100.8 115 25 130/77 (94) 97 08/25/20 03:00 117 20 129/80 (96) 95 08/25/20 02:00 101.0 112 14 116/73 (87) 97 08/25/20 01:00 117 20 122/66 (84) 93 08/25/20 00:00 100.5 111 25 125/69 (87) 96 08/25/20 00:00 Nasal Cannula 2.0 08/24/20 23:00 110 21 141/82 (101) 93 08/24/20 22:30 124/71 08/24/20 22:00 107 24 124/71 (88) 95 08/24/20 21:00 99 23 114/63 (80) 100 08/24/20 20:01 101 109/68 08/24/20 20:00 113 08/24/20 20:00 99.0 100 109/68 (82) 94 08/24/20 20:00 Nasal Cannula 2.0 08/24/20 19:00 99 22 98/55 (69) 95 08/24/20 18:00 106 28 100/63 (75) 93 08/24/20 17:00 109 25 100/57 (71) 99 08/24/20 16:06 101 113/83 08/24/20 16:01 100.0 102 24 113/63 (80) 98 08/24/20 16:00 102 24 113/63 (80) 98 08/24/20 16:00 Nasal Cannula 2.0 08/24/20 16:00 102 Intake and Output 08/24/20 08/25/20 19:00 07:00 Intake Total 440.708 ml 90 ml Output Total 0 ml 0 ml Balance 440.708 ml 90 ml Intake Oral 35 ml IV Total 330.708 ml 55 ml Other 110 ml Output Urine Total 0 ml 0 ml # Bowel Movements 1 3 Laboratory Tests Test 08/25/20 04:30 White Blood Count 15.8 K/UL (4.8-10.8) H Red Blood Count 2.87 M/UL (4.70-6.10) L Hemoglobin 9.7 G/DL (14.2-18.0) L Hematocrit 27.3 % (42.0-52.0) L Mean Corpuscular Volume 95 FL (80-99) Mean Corpuscular Hemoglobin 34.0 PG (27.0-31.0) H Mean Corpuscular Hemoglobin Concent 35.7 G/DL (32.0-36.0) Red Cell Distribution Width 14.7 % (11.6-14.8) Platelet Count 127 K/UL (150-450) L Mean Platelet Volume 7.9 FL (6.5-10.1) Neutrophils (%) (Auto) % (45.0-75.0) Lymphocytes (%) (Auto) % (20.0-45.0) Monocytes (%) (Auto) % (1.0-10.0) Eosinophils (%) (Auto) % (0.0-3.0) Basophils (%) (Auto) % (0.0-2.0) Differential Total Cells Counted 100 Neutrophils % (Manual) 61 % (45-75) Lymphocytes % (Manual) 11 % (20-45) L Monocytes % (Manual) 4 % (1-10) Eosinophils % (Manual) 0 % (0-3) Basophils % (Manual) 0 % (0-2) Band Neutrophils 24 % (0-8) H Platelet Estimate Decreased L Platelet Morphology Normal Red Blood Cell Morphology Hypochromasia Anisocytosis 1+ Sodium Level 138 MMOL/L (136-145) Potassium Level 3.4 MMOL/L (3.5-5.1) L Chloride Level 98 MMOL/L (98-107) Carbon Dioxide Level 18 MMOL/L (21-32) L Anion Gap 22 mmol/L (5-15) H Blood Urea Nitrogen 89 mg/dL (7-18) H Creatinine 9.9 MG/DL (0.55-1.30) H Estimat Glomerular Filtration Rate 5.7 mL/min (>60) Glucose Level 227 MG/DL (74-106) #H Calcium Level 7.6 MG/DL (8.5-10.1) L Total Bilirubin 1.0 MG/DL (0.2-1.0) Aspartate Amino Transf (AST/SGOT) 99 U/L (15-37) H Alanine Aminotransferase (ALT/SGPT) 63 U/L (12-78) Alkaline Phosphatase 90 U/L (46-116) Troponin I 0.676 ng/mL (0.000-0.056) Total Protein 8.1 G/DL (6.4-8.2) Albumin 2.5 G/DL (3.4-5.0) L Globulin 5.6 g/dL Albumin/Globulin Ratio 0.4 (1.0-2.7) L Microbiology Date/Time Source Procedure Growth Status 08/23/20 12:00 Rectum Received 08/23/20 08:35 Nasopharynx SARS-CoV-2 RdRp Gene Assay - Final Complete 08/23/20 08:15 Blood Blood Culture - Preliminary NO GROWTH AFTER 24 HOURS Resulted 08/23/20 08:05 Blood Blood Culture - Preliminary NO GROWTH AFTER 24 HOURS Resulted Objective HEAD AND NECK: Positive JVD. LUNGS: Decreased breath sounds. CARDIOVASCULAR: Shows irregular and tachycardic. S1, S2 with no gallop. ABDOMEN: Soft. EXTREMITIES: Chronic skin changes and multiple sclerotic lesions suspicious for scabies. Kurtis Fisher MD Aug 25, 2020 15:35
--- NOTE | 2020-08-25 16:00 | NUR ---
NURSE NOTES: Patient bathed, cleaned, hair washed, linen changed and lotion applied. Restraints applied again due to patient reaching for NGT and attempting to pull out. Patient unable to recall any events and can only state his name.
--- NOTE | 2020-08-25 16:29 | NUR ---
CASE MANAGEMENT:REVIEW 08/25/20 SI: AFIB W/RVR. HEPATIC ENCEPHALOPATHY ^TROPONIN. ESRD 100.6 107 21 139/69 92% ON 2L/NC WBC+15.8 BUN+89 CR+9.9 TROPONIN(+)0.676 IS: IV ZOSYN Q8HRS LOPRESSOR PO Q12 IV PROTONIX QD : ICU STATUS
--- NOTE | 2020-08-25 17:08 | NUR ---
NURSE NOTES: Patient again appears disheveled, continuously dangling his feet out of bed despite putting him back to the middle.
--- NOTE | 2020-08-25 19:15 | NUR ---
NURSE HAND-OFF REPORT: Latest Vital Signs: Temperature 99.3 , Pulse 122 , B/P 140 /88 , Respiratory Rate 22 , O2 SAT 9 , Nasal Cannula, O2 Flow Rate 2.0 . Vital Sign Comment: STABLE EKG Rhythm: Sinus Tachycardia Rhythm change?: N MD Notified?: - MD Response: Latest Grossman Fall Score: 50 Fall Risk: High Risk Safety Measures: Call light Within Reach, Bed Alarm Zone 1, Side Rails Side Rails x2, Bed position Low and Locked. Fall Precautions: Yellow Socks Yellow Gown Door Sign Patient Fall Education Report given to Lang GRAY. Plan of care endorsed. Unable to start feed due to patient trying to get out of bed and not laying in 30 degrees despite frequent repositioning.
--- NOTE | 2020-08-25 21:24 | General Progress Note ---
Subjective ROS Limited/Unobtainable: Yes Allergies: Coded Allergies: No Known Allergies (Unverified , 08/23/20) Objective Last 24 Hour Vital Signs Date Time Temp Pulse Resp B/P (MAP) Pulse Ox O2 Delivery O2 Flow Rate FiO2 08/25/20 20:51 123 139/89 08/25/20 18:58 122 22 140/88 (105) 9 08/25/20 18:00 99.3 125 33 158/97 (117) 95 08/25/20 17:00 113 163/110 (127) 08/25/20 16:00 100 20 134/97 (109) 94 08/25/20 16:00 Nasal Cannula 2.0 08/25/20 16:00 101 149/103 (118) 08/25/20 16:00 113 08/25/20 15:00 97 20 134/88 (103) 95 08/25/20 15:00 96 18 151/91 (111) 94 08/25/20 14:00 94 25 120/76 (91) 95 08/25/20 14:00 94 17 141/84 (103) 94 08/25/20 13:00 98.9 93 21 139/69 (92) 93 08/25/20 12:00 Nasal Cannula 2.0 08/25/20 12:00 86 20 127/79 (95) 92 08/25/20 12:00 87 08/25/20 11:32 88 08/25/20 11:00 86 19 120/82 (95) 94 08/25/20 10:00 79 19 113/74 (87) 100 08/25/20 09:00 82 20 110/70 (83) 100 08/25/20 08:40 90 20 125/78 (94) 100 08/25/20 08:33 88 106/67 08/25/20 08:00 99.1 90 21 106/67 (80) 100 08/25/20 08:00 Nasal Cannula 2.0 08/25/20 07:41 92 08/25/20 07:00 97 22 109/71 (84) 100 08/25/20 06:00 100.6 107 25 131/79 (96) 99 08/25/20 05:00 108 25 147/82 (103) 98 08/25/20 04:00 109 08/25/20 04:00 Nasal Cannula 2.0 08/25/20 04:00 100.8 115 25 130/77 (94) 97 08/25/20 03:00 117 20 129/80 (96) 95 08/25/20 02:00 101.0 112 14 116/73 (87) 97 08/25/20 01:00 117 20 122/66 (84) 93 08/25/20 00:00 100.5 111 25 125/69 (87) 96 08/25/20 00:00 Nasal Cannula 2.0 08/24/20 23:00 110 21 141/82 (101) 93 08/24/20 22:30 124/71 08/24/20 22:00 107 24 124/71 (88) 95 Intake and Output 08/24/20 08/25/20 19:00 07:00 Intake Total 440.708 ml 90 ml Output Total 0 ml 0 ml Balance 440.708 ml 90 ml Intake Oral 35 ml IV Total 330.708 ml 55 ml Other 110 ml Output Urine Total 0 ml 0 ml # Bowel Movements 1 3 Laboratory Tests 08/25/20 04:30: White Blood Count 15.8H, Red Blood Count 2.87L, Hemoglobin 9.7L, Hematocrit 27.3L, Mean Corpuscular Volume 95, Mean Corpuscular Hemoglobin 34.0H, Mean Corpuscular Hemoglobin Concent 35.7, Red Cell Distribution Width 14.7, Platelet Count 127L, Mean Platelet Volume 7.9, Neutrophils (%) (Auto) , Lymphocytes (%) (Auto) , Monocytes (%) (Auto) , Eosinophils (%) (Auto) , Basophils (%) (Auto) , Differential Total Cells Counted 100, Neutrophils % (Manual) 61, Lymphocytes % (Manual) 11L, Monocytes % (Manual) 4, Eosinophils % (Manual) 0, Basophils % (Manual) 0, Band Neutrophils 24H, Platelet Estimate DecreasedL, Platelet Morphology Normal, Red Blood Cell Morphology , Hypochromasia , Anisocytosis 1+, Sodium Level 138, Potassium Level 3.4L, Chloride Level 98, Carbon Dioxide Level 18L, Anion Gap 22H, Blood Urea Nitrogen 89H, Creatinine 9.9H, Estimat Glomerular Filtration Rate 5.7, Glucose Level 227#H, Calcium Level 7.6L, Total Bilirubin 1.0, Aspartate Amino Transf (AST/SGOT) 99H, Alanine Aminotransferase (ALT/SGPT) 63, Alkaline Phosphatase 90, Troponin I 0.676H, Total Protein 8.1, Albumin 2.5L, Globulin 5.6, Albumin/Globulin Ratio 0.4L Height (Feet): 5 Height (Inches): 6.00 Weight (Pounds): 121 Assessment/Plan Problem List: (1) ESRD (end stage renal disease) ICD Codes: N18.6 - End stage renal disease SNOMED: 44989861 (2) Troponin level elevated ICD Codes: R77.8 - Other specified abnormalities of plasma proteins SNOMED: 151312537, 732589010, 175326190 (3) Elevated LFTs ICD Codes: R79.89 - Other specified abnormal findings of blood chemistry SNOMED: 010672104, 217391253 (4) Hyperkalemia, diminished renal excretion ICD Codes: E87.5 - Hyperkalemia SNOMED: 48243012, 117135682, 824206293 (5) Altered level of consciousness ICD Codes: R40.4 - Transient alteration of awareness SNOMED: 1340721 Status: progressing Assessment/Plan: esrd on hd ammonia is high normal more alert agitated sepsis metabolic encephalopathy reviewed chart and labs Lev Bhandari MD Aug 25, 2020 21:24
--- NOTE | 2020-08-25 21:40 | General Progress Note ---
Subjective Allergies: Coded Allergies: No Known Allergies (Unverified , 08/23/20) Subjective above noted still confused ammonia normal NGT in d/w clinical staff pharmacist HEP C (+) Objective Last 24 Hour Vital Signs Date Time Temp Pulse Resp B/P (MAP) Pulse Ox O2 Delivery O2 Flow Rate FiO2 08/25/20 20:51 123 139/89 08/25/20 18:58 122 22 140/88 (105) 9 08/25/20 18:00 99.3 125 33 158/97 (117) 95 08/25/20 17:00 113 163/110 (127) 08/25/20 16:00 100 20 134/97 (109) 94 08/25/20 16:00 Nasal Cannula 2.0 08/25/20 16:00 101 149/103 (118) 08/25/20 16:00 113 08/25/20 15:00 97 20 134/88 (103) 95 08/25/20 15:00 96 18 151/91 (111) 94 08/25/20 14:00 94 25 120/76 (91) 95 08/25/20 14:00 94 17 141/84 (103) 94 08/25/20 13:00 98.9 93 21 139/69 (92) 93 08/25/20 12:00 Nasal Cannula 2.0 08/25/20 12:00 86 20 127/79 (95) 92 08/25/20 12:00 87 08/25/20 11:32 88 08/25/20 11:00 86 19 120/82 (95) 94 08/25/20 10:00 79 19 113/74 (87) 100 08/25/20 09:00 82 20 110/70 (83) 100 08/25/20 08:40 90 20 125/78 (94) 100 08/25/20 08:33 88 106/67 08/25/20 08:00 99.1 90 21 106/67 (80) 100 08/25/20 08:00 Nasal Cannula 2.0 08/25/20 07:41 92 08/25/20 07:00 97 22 109/71 (84) 100 08/25/20 06:00 100.6 107 25 131/79 (96) 99 08/25/20 05:00 108 25 147/82 (103) 98 12/2/20 04:00 109 08/25/20 04:00 Nasal Cannula 2.0 08/25/20 04:00 100.8 115 25 130/77 (94) 97 08/25/20 03:00 117 20 129/80 (96) 95 08/25/20 02:00 101.0 112 14 116/73 (87) 97 08/25/20 01:00 117 20 122/66 (84) 93 08/25/20 00:00 100.5 111 25 125/69 (87) 96 08/25/20 00:00 Nasal Cannula 2.0 08/24/20 23:00 110 21 141/82 (101) 93 08/24/20 22:30 124/71 08/24/20 22:00 107 24 124/71 (88) 95 Intake and Output 08/24/20 08/25/20 19:00 07:00 Intake Total 440.708 ml 90 ml Output Total 0 ml 0 ml Balance 440.708 ml 90 ml Intake Oral 35 ml IV Total 330.708 ml 55 ml Other 110 ml Output Urine Total 0 ml 0 ml # Bowel Movements 1 3 Laboratory Tests 08/25/20 04:30: White Blood Count 15.8H, Red Blood Count 2.87L, Hemoglobin 9.7L, Hematocrit 27.3L, Mean Corpuscular Volume 95, Mean Corpuscular Hemoglobin 34.0H, Mean Corpuscular Hemoglobin Concent 35.7, Red Cell Distribution Width 14.7, Platelet Count 127L, Mean Platelet Volume 7.9, Neutrophils (%) (Auto) , Lymphocytes (%) (Auto) , Monocytes (%) (Auto) , Eosinophils (%) (Auto) , Basophils (%) (Auto) , Differential Total Cells Counted 100, Neutrophils % (Manual) 61, Lymphocytes % (Manual) 11L, Monocytes % (Manual) 4, Eosinophils % (Manual) 0, Basophils % (Manual) 0, Band Neutrophils 24H, Platelet Estimate DecreasedL, Platelet M orphology Normal, Red Blood Cell Morphology , Hypochromasia , Anisocytosis 1+, Sodium Level 138, Potassium Level 3.4L, Chloride Level 98, Carbon Dioxide Level 18L, Anion Gap 22H, Blood Urea Nitrogen 89H, Creatinine 9.9H, Estimat Glomerular Filtration Rate 5.7, Glucose Level 227#H, Calcium Level 7.6L, Total Bilirubin 1.0, Aspartate Amino Transf (AST/SGOT) 99H, Alanine Aminotransferase (ALT/SGPT) 63, Alkaline Phosphatase 90, Troponin I 0.676H, Total Protein 8.1, Albumin 2.5L, Globulin 5.6, Albumin/Globulin Ratio 0.4L Height (Feet): 5 Height (Inches): 6.00 Weight (Pounds): 121 Objective Dishevelled man NCAT supple CTA RR abd soft no edema Assessment/Plan Status: progressing Assessment/Plan: Assessment - renal failure - Rhabdo - Hepatitis C (+) - suspect toxic-metabolic encephalopathy - cholelithiasis, per abd ultrasound Recommendations - supportive care - HD - TF - follow Hep B Franklin Palomares MD Aug 25, 2020 21:40
[2020-08-25] MEDS: Norepinephrine 4mg/NS Premix 250 ML IV SCH (22:30)
[2020-08-26] VITALS: BP 131/85
--- NOTE | 2020-08-26 00:30 | NUR ---
NURSE NOTES: Received report from MARINA Love, Pt stable at this time. A/O x1 responding to name when called but unable to follow commands. SR on traffic monitor specialist.RR even and unlabored on room air saturating @ 97%. Bowel sounds active. NGT noted to LT nare, intact, patent and flushed well. NO residual noted. . Rash noted on skin but appears healed and scabed. Iv line on L forearm #18 intact, patent and flushed well, SL. With R Femoral TLC, intact, patent and flushed well. Permacath on R chest. NO bleeding noted. Side rails upx2, call light within reach, bed low and locked. BL soft wrist restraints on with good ROM, sensation and circulation. Patient restless and unable to reorient. Restraints still medically necessary.
[2020-08-26] MEDS: Piperacillin/Tazobactam 2.25 GM in D5W 55 ML IV SCH ×3 (02:06→17:49)
[2020-08-26 04:00] VITALS: BP 126/80
--- NOTE | 2020-08-26 04:30 | NUR ---
NURSE NOTES: Pt, pulled out his ngtube. Stated that it bothers him.
--- NOTE | 2020-08-26 04:44 | NUR ---
NURSE NOTES: Reinserted Ngtube on L nares.
--- NOTE | 2020-08-26 06:18 | Diagnostic Imaging Report ---
EXAM: XR Abdomen, 2 Views CLINICAL HISTORY: NGT TECHNIQUE: Frontal view of the abdomen/pelvis with upright view of the abdomen. COMPARISON: 08/25/20. FINDINGS: Gastrointestinal tract: Nonspecific bowel gas pattern with overall paucity of small bowel gas. No dilation. Tubes, lines and devices: NG tube seen, unchanged projecting over the left upper abdomen, likely in the stomach. Catheter again noted in the right pelvis, unchanged. IMPRESSION: 1. Feeding tube, tip likely in the mid stomach. 2. No significant change.
--- NOTE | 2020-08-26 06:20 | NUR ---
NURSE NOTES: Pt pulled out his ngtube for the 2nd time.
--- NOTE | 2020-08-26 07:28 | NUR ---
NURSE HAND-OFF REPORT: Important Events on Shift: NGTUBE out Patient Status: Stable Diet: Nepro Pending Orders: Pending Results/Labs: Pending MD notification: Latest Vital Signs: Temperature 98.2 , Pulse 95 , B/P 126 /80 , Respiratory Rate 19 , O2 SAT 95 , Room Air, O2 Flow Rate 2.0 . Vital Sign Comment: Stable EKG Rhythm: SR w/ BBB Rhythm change?: N MD Notified?: - MD Response: Latest Grossman Fall Score: 50 Fall Risk: High Risk Safety Measures: Call light Within Reach, Bed Alarm Zone 1, Side Rails Side Rails x2, Bed position Low and Locked. Fall Precautions: Yellow Socks Yellow Gown Door Sign Patient Fall Education Report given to MARINA Carpio.
--- NOTE | 2020-08-26 07:31 | NUR ---
NURSE HAND-OFF REPORT: Important Events on Shift: CT abdomen, pelvis w/ contrast Patient Status: Stable Diet: Vital AF 1.2 Pending Orders: Pending Results/Labs: Pending MD notification: Latest Vital Signs: Temperature 98.2 , Pulse 95 , B/P 126 /80 , Respiratory Rate 19 , O2 SAT 95 , Room Air, O2 Flow Rate 2.0 . Vital Sign Comment: Stable EKG Rhythm: SR w/ BBB Rhythm change?: N MD Notified?: - MD Response: Latest Grossman Fall Score: 50 Fall Risk: High Risk Safety Measures: Call light Within Reach, Bed Alarm Zone 1, Side Rails Side Rails x2, Bed position Low and Locked. Fall Precautions: Yellow Socks Yellow Gown Door Sign Patient Fall Education Report given to MARINA Freeman . Addendum: 08/26/20 at 0734 by Urvashi Dupree RN disregard above notes. Wrong pt.
[2020-08-26 07:37] LABS: HEMATOCRIT 28.9 % (42.0-52.0); HEMOGLOBIN 10.2 G/DL (14.2-18.0); MEAN CORPUSCULAR VOLUME 98 FL (80-99); PLATELET COUNT 109 K/UL (150-450); RED BLOOD COUNT 2.94 M/UL (4.70-6.10); RED CELL DISTRIBUTION WIDTH 13.9 % (11.6-14.8)
--- NOTE | 2020-08-26 07:54 | NUR ---
NURSE NOTES: Received patient report from MARINA Kim. Pt shows no signs of distress nor pain. Pt is agitated because he can't have water. Per night nurse RN pt removed NGT twice at night, pt currently does not have NGT in place. Pt has a saline lock 18 gauge IV in Left forearm patent and intact. Pt has Right femoral TLC TKO patent and intact. Pt has permacath on right chest for Hemodialysis. Pt is on RA and saturating fine. Pt is on 2-point bilateral soft restraints, renewed today 08/26/20 at 0301. Bed is in the lowest position, call light is within reach, side rails up x2. Will continue to monitor.
[2020-08-26 08:00] VITALS: BP 145/90
[2020-08-26 08:16] LABS: ALBUMIN 2.3 G/DL (3.4-5.0); ALBUMIN/GLOBULIN RATIO 0.4 (1.0-2.7); BILIRUBIN,TOTAL 0.9 MG/DL (0.2-1.0); CALCIUM 7.9 MG/DL (8.5-10.1); CREATININE 6.7 MG/DL (0.55-1.30)
[2020-08-26 08:24] LABS: CREATINE KINASE 378 U/L (26-308)
[2020-08-26] MEDS: Pantoprazole Inj IVP SCH (09:52)
--- NOTE | 2020-08-26 10:07 | Infectious Diseases Prog Note ---
Assessment/Plan Assessment/Plan IMPRESSION: Sepsis or systemic inflammatory response syndrome Cholelithiasis. We will try to rule out cholecystitis. End-stage renal disease, Acidosis, Elevated troponin, Marijuana abuse. Elevated Hep C antibody Likely scabies, RECOMMENDATION: Continue vancomycin and Zosyn. HIDA scan. We will follow up the cultures, Left foot x-ray Subjective ROS Limited/Unobtainable: Yes Constitutional: Reports: no symptoms, other - transferred from ICU to [facility] Neurologic: Reports: other - more alert, resposive Allergies: Coded Allergies: No Known Allergies (Unverified , 08/23/20) Objective Last 24 Hour Vital Signs Date Time Temp Pulse Resp B/P (MAP) Pulse Ox O2 Delivery O2 Flow Rate FiO2 08/26/20 04:25 Room Air 08/26/20 04:00 98.2 95 19 126/80 (95) 95 08/26/20 03:27 95 08/26/20 00:00 97.7 105 21 131/85 (100) 98 08/26/20 00:00 Nasal Cannula 2.0 08/25/20 23:00 109 14 98 08/25/20 22:00 109 15 134/81 (98) 95 08/25/20 21:00 118 19 136/84 (101) 08/25/20 20:51 123 139/89 08/25/20 20:00 Nasal Cannula 2.0 08/25/20 20:00 98.1 120 23 134/80 (98) 08/25/20 20:00 122 08/25/20 18:58 122 22 140/88 (105) 9 08/25/20 18:00 99.3 125 33 158/97 (117) 95 08/25/20 17:00 113 163/110 (127) 08/25/20 16:00 100 20 134/97 (109) 94 08/25/20 16:00 Nasal Cannula 2.0 08/25/20 16:00 101 149/103 (118) 08/25/20 16:00 113 08/25/20 15:00 97 20 134/88 (103) 95 08/25/20 15:00 96 18 151/91 (111) 94 08/25/20 14:00 94 25 120/76 (91) 95 08/25/20 14:00 94 17 141/84 (103) 94 08/25/20 13:00 98.9 93 21 139/69 (92) 93 08/25/20 12:00 Nasal Cannula 2.0 08/25/20 12:00 86 20 127/79 (95) 92 08/25/20 12:00 87 08/25/20 11:32 88 08/25/20 11:00 86 19 120/82 (95) 94 Height (Feet): 5 Height (Inches): 6.00 Weight (Pounds): 121 HEENT: other - dry mouth Respiratory/Chest: lungs clear Cardiovascular: normal rate, other - Permacath Abdomen: soft, non tender Extremities: no edema Skin: other - left second & fourth toes nails are missing Neurologic/Psychiatric: alert, responsive Microbiology Date/Time Source Procedure Growth Status 08/23/20 12:00 Rectum VRE Culture - Final NO VANCOMYCIN RESISTANT ENTEROCOCCUS ... Complete Laboratory Tests Test 08/26/20 04:15 White Blood Count 19.0 K/UL (4.8-10.8) H Red Blood Count 2.94 M/UL (4.70-6.10) L Hemoglobin 10.2 G/DL (14.2-18.0) L Hematocrit 28.9 % (42.0-52.0) L Mean Corpuscular Volume 98 FL (80-99) Mean Corpuscular Hemoglobin 34.5 PG (27.0-31.0) H Mean Corpuscular Hemoglobin Concent 35.1 G/DL (32.0-36.0) Red Cell Distribution Width 13.9 % (11.6-14.8) Platelet Count 109 K/UL (150-450) L Mean Platelet Volume 6.0 FL (6.5-10.1) L Neutrophils (%) (Auto) % (45.0-75.0) Lymphocytes (%) (Auto) % (20.0-45.0) Monocytes (%) (Auto) % (1.0-10.0) Eosinophils (%) (Auto) % (0.0-3.0) Basophils (%) (Auto) % (0.0-2.0) Neutrophils % (Manual) Pending Lymphocytes % (Manual) Pending Platelet Estimate Pending Platelet Morphology Pending Sodium Level 138 MMOL/L (136-145) Potassium Level 3.0 MMOL/L (3.5-5.1) L Chloride Level 101 MMOL/L (98-107) Carbon Dioxide Level 18 MMOL/L (21-32) L Anion Gap 20 mmol/L (5-15) H Blood Urea Nitrogen 52 mg/dL (7-18) H Creatinine 6.7 MG/DL (0.55-1.30) H Estimat Glomerular Filtration Rate 8.9 mL/min (>60) Glucose Level 179 MG/DL (74-106) H Calcium Level 7.9 MG/DL (8.5-10.1) L Phosphorus Level 5.0 MG/DL (2.5-4.9) H Magnesium Level 2.4 MG/DL (1.8-2.4) Total Bilirubin 0.9 MG/DL (0.2-1.0) Aspartate Amino Transf (AST/SGOT) 63 U/L (15-37) H Alanine Aminotransferase (ALT/SGPT) 50 U/L (12-78) Alkaline Phosphatase 82 U/L (46-116) Total Creatine Kinase 378 U/L (26-308) H C-Reactive Protein, Quantitative 52.2 mg/dL (0.00-0.90) H Pro-B-Type Natriuretic Peptide > 08290 pg/mL (0-125) H Total Protein 8.1 G/DL (6.4-8.2) Albumin 2.3 G/DL (3.4-5.0) L Globulin 5.8 g/dL Albumin/Globulin Ratio 0.4 (1.0-2.7) L Random Vancomycin Level 14.6 ug/mL Current Medications Medications (Trade) Dose Ordered Sig/Sylvia Route PRN Reason Start Time Stop Time Status Last Admin Dose Admin Acetaminophen (Tylenol) 500 mg Q4H PRN ORAL Mild Pain (Pain Scale 1-3) 08/24/20 01:15 09/23/20 01:14 08/25/20 00:36 Barium Sulfate (Varibar Honey) 250 ml NOW PRN RAD 08/24/20 08:15 08/27/20 08:01 Barium Sulfate (Varibar [place]) 240 ml NOW PRN RAD 08/24/20 08:15 08/27/20 08:01 Barium Sulfate (Varibar Pudding) 230 ml NOW PRN RAD 08/24/20 08:15 08/27/20 08:01 Barium Sulfate (Varibar Thin Liquid powder) 148 gm NOW PRN MC RAD 08/24/20 08:15 08/27/20 08:01 Metoprolol Tartrate (Lopressor) 25 mg Q12HR ORAL 08/24/20 21:00 11/22/20 20:59 08/25/20 20:51 Pantoprazole (Protonix) 40 mg DAILY IVP 08/24/20 09:00 09/23/20 08:59 08/26/20 09:52 Piperacillin Sod/ Tazobactam Sod 2.25 gm/Dextrose 55 ml @ 110 mls/hr Q8H IV 08/24/20 17:00 08/31/20 16:59 08/26/20 09:52 Vancomycin HCl ([facility] pharmacy to dose) 1 ea DAILY PRN MISC Per rx protocol 08/24/20 15:30 09/23/20 15:29 Jean Carlos Adamson MD Aug 26, 2020 10:07
--- NOTE | 2020-08-26 10:34 | Nephrology Progress Note ---
Assessment/Plan Problem List: (1) ESRD (end stage renal disease) (2) Altered level of consciousness (3) Hyperkalemia, diminished renal excretion (4) Elevated LFTs (5) Troponin level elevated Assessment Plan August 26: Patient in SDU. Was dialyzed yesterday. Will give potassium supplement. Will arrange for dialysis tomorrow. Continue per consultants. Leukocytosis worsening. Continue per ID advice. August 25: Discussed with MARINA Salinas. Due for dialysis today. Continue per consultants. Waiting for blood culture results. August 24: Patient seen in ICU. Discussed with MARINA Tillman. Patient was dialyzed yesterday. Electrolyte abnormalities no much improved. Continue per cons ultants. Next dialysis tomorrow. Subjective ROS Limited/Unobtainable: No Constitutional: Reports: malaise, weakness Objective Objective Last 24 Hour Vital Signs Date Time Temp Pulse Resp B/P (MAP) Pulse Ox O2 Delivery O2 Flow Rate FiO2 08/26/20 09:00 88 145/90 08/26/20 04:25 Room Air 08/26/20 04:00 98.2 95 19 126/80 (95) 95 08/26/20 03:27 95 08/26/20 00:00 97.7 105 21 131/85 (100) 98 08/26/20 00:00 Nasal Cannula 2.0 08/25/20 23:00 109 14 98 08/25/20 22:00 109 15 134/81 (98) 95 08/25/20 21:00 118 19 136/84 (101) 08/25/20 20:51 123 139/89 08/25/20 20:00 Nasal Cannula 2.0 08/25/20 20:00 98.1 120 23 134/80 (98) 08/25/20 20:00 122 08/25/20 18:58 122 22 140/88 (105) 9 08/25/20 18:00 99.3 125 33 158/97 (117) 95 08/25/20 17:00 113 163/110 (127) 08/25/20 16:00 100 20 134/97 (109) 94 08/25/20 16:00 Nasal Cannula 2.0 08/25/20 16:00 101 149/103 (118) 08/25/20 16:00 113 08/25/20 15:00 97 20 134/88 (103) 95 08/25/20 15:00 96 18 151/91 (111) 94 08/25/20 14:00 94 25 120/76 (91) 95 08/25/20 14:00 94 17 141/84 (103) 94 08/25/20 13:00 98.9 93 21 139/69 (92) 93 08/25/20 12:00 Nasal Cannula 2.0 08/25/20 12:00 86 20 127/79 (95) 92 08/25/20 12:00 87 08/25/20 11:32 88 08/25/20 11:00 86 19 120/82 (95) 94 Intake and Output 08/25/20 08/26/20 19:00 07:00 Intake Total 110 ml 195 ml Output Total 270 ml 0 ml Balance -160 ml 195 ml IV Total 110 ml 55 ml Tube Feeding 140 ml Output Urine Total 120 ml 0 ml Hemodialysis UF 150 ml # Bowel Movements 1 3 Current Medications Medications (Trade) Dose Ordered Sig/Sylvia Route PRN Reason Start Time Stop Time Status Last Admin Dose Admin Acetaminophen (Tylenol) 500 mg Q4H PRN ORAL Mild Pain (Pain Scale 1-3) 08/24/20 01:15 09/23/20 01:14 08/25/20 00:36 Barium Sulfate (Varibar Honey) 250 ml NOW PRN RAD 08/24/20 08:15 08/27/20 08:01 Barium Sulfate (Varibar [place]) 240 ml NOW PRN MC RAD 08/24/20 08:15 08/27/20 08:01 Barium Sulfate (Varibar Pudding) 230 ml NOW PRN RAD 08/24/20 08:15 08/27/20 08:01 Barium Sulfate (Varibar Thin Liquid powder) 148 gm NOW PRN MC RAD 08/24/20 08:15 08/27/20 08:01 Metoprolol Tartrate (Lopressor) 25 mg Q12HR ORAL 08/24/20 21:00 11/22/20 20:59 08/25/20 20:51 Pantoprazole (Protonix) 40 mg DAILY IVP 08/24/20 09:00 09/23/20 08:59 08/26/20 09:52 Piperacillin Sod/ Tazobactam Sod 2.25 gm/Dextrose 55 ml @ 110 mls/hr Q8H IV 08/24/20 17:00 12/8/20 16:59 08/26/20 09:52 [facility] 1 ea DAILY PRN MISC Per rx protocol 08/24/20 15:30 09/23/20 15:29 Laboratory Tests 08/26/20 04:15: White Blood Count 19.0H, Red Blood Count 2.94L, Hemoglobin 10.2L, Hematocrit 28.9L, Mean Corpuscular Volume 98, Mean Corpuscular Hemoglobin 34.5H, Mean Corpuscular Hemoglobin Concent 35.1, Red Cell Distribution Width 13.9, Platelet Count 109L, Mean Platelet Volume 6.0L, Neutrophils (%) (Auto) , Lymphocytes (%) (Auto) , Monocytes (%) (Auto) , Eosinophils (%) (Auto) , Basophils (%) (Auto) , Neutrophils % (Manual) [Pending], Lymphocytes % (Manual) [Pending], Platelet Estimate [Pending], Platelet Morphology [Pending], Sodium Level 138, Potassium Level 3.0L, Chloride Level 101, Carbon Dioxide Level 18L, Anion Gap 20H, Blood Urea Nitrogen 52H, Creatinine 6.7H, Estimat Glomerular Filtration Rate 8.9, Glucose Level 179H, Calcium Level 7.9L, Phosphorus Level 5.0H, Magnesium Level 2.4, Total Bilirubin 0.9, Aspartate Amino Transf (AST/SGOT) 63H, Alanine Aminotransferase (ALT/SGPT) 50, Alkaline Phosphatase 82, Total Creatine Kinase 378H, C-Reactive Protein, Quantitative 52.2H, Pro-B-Type Natriuretic Peptide > 62038T, Total Protein 8.1, Albumin 2.3L, Globulin 5.8, Albumin/Globulin Ratio 0.4L, Random Vancomycin Level 14.6 Height (Feet): 5 Height (Inches): 6.00 Weight (Pounds): 121 General Appearance: no apparent distress, lethargic, confused Cardiovascular: tachycardia Respiratory/Chest: decreased breath sounds Abdomen: distended Alfredo Germain MD Aug 26, 2020 10:34
--- NOTE | 2020-08-26 10:41 | Pulmonology Progress Note ---
Subjective ROS Limited/Unobtainable: No Interval Events: None new Constitutional: Reports: no symptoms, other - transferred from ICU to [facility] HEENT: Repors: no symptoms Respiratory: Reports: no symptoms Cardiovascular: Reports: no symptoms Gastrointestinal/Abdominal: Reports: no symptoms Allergies: Coded Allergies: No Known Allergies (Unverified , 08/23/20) Objective Last 24 Hour Vital Signs Date Time Temp Pulse Resp B/P (MAP) Pulse Ox O2 Delivery O2 Flow Rate FiO2 08/26/20 09:00 88 145/90 08/26/20 04:25 Room Air 08/26/20 04:00 98.2 95 19 126/80 (95) 95 08/26/20 03:27 95 08/26/20 00:00 97.7 105 21 131/85 (100) 98 08/26/20 00:00 Nasal Cannula 2.0 08/25/20 23:00 109 14 98 08/25/20 22:00 109 15 134/81 (98) 95 08/25/20 21:00 118 19 136/84 (101) 08/25/20 20:51 123 139/89 08/25/20 20:00 Nasal Cannula 2.0 08/25/20 20:00 98.1 120 23 134/80 (98) 08/25/20 20:00 122 08/25/20 18:58 122 22 140/88 (105) 9 08/25/20 18:00 99.3 125 33 158/97 (117) 95 08/25/20 17:00 113 163/110 (127) 08/25/20 16:00 100 20 134/97 (109) 94 08/25/20 16:00 Nasal Cannula 2.0 08/25/20 16:00 101 149/103 (118) 08/25/20 16:00 113 08/25/20 15:00 97 20 134/88 (103) 95 08/25/20 15:00 96 18 151/91 (111) 94 08/25/20 14:00 94 25 120/76 (91) 95 08/25/20 14:00 94 17 141/84 (103) 94 08/25/20 13:00 98.9 93 21 139/69 (92) 93 08/25/20 12:00 Nasal Cannula 2.0 08/25/20 12:00 86 20 127/79 (95) 92 12/2/20 12:00 87 08/25/20 11:32 88 08/25/20 11:00 86 19 120/82 (95) 94 Intake and Output 08/25/20 08/26/20 19:00 07:00 Intake Total 110 ml 195 ml Output Total 270 ml 0 ml Balance -160 ml 195 ml IV Total 110 ml 55 ml Tube Feeding 140 ml Output Urine Total 120 ml 0 ml Hemodialysis UF 150 ml # Bowel Movements 1 3 General Appearance: no acute distress HEENT: normocephalic Respiratory: chest wall non-tender, lungs clear Cardiovascular: normal peripheral pulses Abdomen: normal bowel sounds Microbiology Date/Time Source Procedure Growth Status 08/23/20 12:00 Rectum VRE Culture - Final NO VANCOMYCIN RESISTANT ENTEROCOCCUS ... Complete Laboratory Tests 08/26/20 04:15: White Blood Count 19.0H, Red Blood Count 2.94L, Hemoglobin 10.2L, Hematocrit 28.9L, Mean Corpuscular Volume 98, Mean Corpuscular Hemoglobin 34.5H, Mean Corpuscular Hemoglobin Concent 35.1, Red Cell Distribution Width 13.9, Platelet Count 109L, Mean Platelet Volume 6.0L, Neutrophils (%) (Auto) , Lymphocytes (%) (Auto) , Monocytes (%) (Auto) , Eosinophils (%) (Auto) , Basophils (%) (Auto) , Neutrophils % (Manual) [Pending], Lymphocytes % (Manual) [Pending], Platelet Estimate [Pending], Platelet Morphology [Pending], Sodium Level 138, Potassium Level 3.0L, Chloride Level 101, Carbon Dioxide Level 18L, Anion Gap 20H, Blood Urea Nitrogen 52H, Creatinine 6.7H, Estimat Glomerular Filtration Rate 8.9, Glucose Level 179H, Calcium Level 7.9L, Phosphorus Level 5.0H, Magnesium Level 2.4, Total Bilirubin 0.9, Aspartate Amino Transf (AST/SGOT) 63H, Alanine Aminotransferase (ALT/SGPT) 50, Alkaline Phosphatase 82, Total Creatine Kinase 378H, C-Reactive Protein, Quantitative 52.2H, Pro-B-Type Natriuretic Peptide > 02887P, Total Protein 8.1, Albumin 2.3L, Globulin 5.8, Albumin/Globulin Ratio 0 .4L, Random Vancomycin Level 14.6 Current Medications Medications (Trade) Dose Ordered Sig/Sylvia Route PRN Reason Start Time Stop Time Status Last Admin Dose Admin Acetaminophen (Tylenol) 500 mg Q4H PRN ORAL Mild Pain (Pain Scale 1-3) 08/24/20 01:15 09/23/20 01:14 08/25/20 00:36 Barium Sulfate (Varibar Honey) 250 ml NOW PRN RAD 08/24/20 08:15 08/27/20 08:01 Barium Sulfate (Varibar [place]) 240 ml NOW PRN RAD 08/24/20 08:15 08/27/20 08:01 Barium Sulfate (Varibar Pudding) 230 ml NOW PRN RAD 08/24/20 08:15 08/27/20 08:01 Barium Sulfate (Varibar Thin Liquid powder) 148 gm NOW PRN RAD 08/24/20 08:15 08/27/20 08:01 Lansoprazole (Prevacid) 30 mg BID NG 08/26/20 18:00 09/25/20 17:59 Metoprolol Tartrate (Lopressor) 25 mg Q12HR ORAL 08/24/20 21:00 11/22/20 20:59 08/25/20 20:51 Piperacillin Sod/ Tazobactam Sod 2.25 gm/Dextrose 55 ml @ 110 mls/hr Q8H IV 08/24/20 17:00 08/31/20 16:59 08/26/20 09:52 Potassium Chloride (K-Dur) 20 meq ONCE NG 08/26/20 10:45 08/26/20 12:00 [facility]com[facility]) 1 ea DAILY PRN MISC Per rx protocol 08/24/20 15:30 09/23/20 15:29 Assessment/Plan Assessment/Plan ASSESSMENT AND PLAN: 1. Atrial fibrillation with rapid ventricular response. Currently off Cardizem 2. Elevated troponin, likely due to sepsis and hypotension and tachycardia. 3. End-stage renal disease and hyperkalemia. Hemodialysis per Dr. Germain. 4. Anemia. 5. Hyperkalemia. Received glucose and insulin. 6. Hepatic encephalopathy; continue lactulose Continue to monitor for hypotension Saturating well on low flow O2 Ada Sofia Omar Syed MD Aug 26, 2020 10:41
--- NOTE | 2020-08-26 11:15 | NUR ---
NURSE NOTES: Pt was taken down for [facility] Hepatobiliary with delays. Off Tele Order in place per . Pt shows no signs of distress or pain at the time.
[2020-08-26] MEDS ORDERED: Morphine Sulfate 2mg/ml Inj(IV/IM USE ONLY) IVP SCH (11:45)
--- NOTE | 2020-08-26 11:52 | NUR ---
NURSE NOTES: Heekya called to inform that pt pulled out femoral triple lumen catheter. Ludwin from [employer] applied pressure, he stated no assistance needed. Pt remained restrained.
[2020-08-26 12:00] VITALS: BP 136/91
--- NOTE | 2020-08-26 12:57 | NUR ---
RESISTOR WINDER NOTE SW is unable to obtain any information from pt. PT does not communicate w/ this SW. SW will continue to F/U.
[2020-08-26] MEDS ORDERED: Vancomycin 1 GM in NS 275 ML IVPB SCH (13:00)
--- NOTE | 2020-08-26 13:44 | NUR ---
NURSE NOTES: Tried to place NGT as ordered. Patient physically refused and would not allow NGT to pass.
[2020-08-26] MEDS ORDERED: Tubing IV Secondary IV ONE (14:09)
[2020-08-26] MEDS ORDERED: NS 275ml ONE (14:09)
--- NOTE | 2020-08-26 14:22 | NUR ---
SPEECH PATHOLOGY RE/ASSESSMENT BEDSIDE DYSPHAGIA EVALUATION S: PATIENT CLEARED FOR ST INTERVENTION BY MARINA ROOT. PER RN REPORT, PATIENT SELF/EXTUBATED NG TUBE. HE IS SIGNIFICANTLY MORE ALERT/ AWAKE THAN DURING PRIOR DYSPHAGIA EVALUATION HEPATIC ENCEPHALOPATHY/PATIENT ORIENTED TO SPEAKER AND YEAR BUT NOT TO PLACE/SITUATION/MONTH "I WANT WATER" PATIENT ON ROOM AIR. Assessment/Plan Problem List: (1) ESRD (end stage renal disease) (2) Altered level of consciousness (3) Hyperkalemia, diminished renal excretion (4) Elevated LFTs (5) Troponin level elevated [facility] Physician:Seven Reyes MD ID Number:[id number] Date:08/23/20 :1970Report Date:08/23/20 Gender:MAccession No.:[id number] [facility] Procedure: XRAY Chest 1v Indication: Cough Technique: One view of the chest Comparison: none Findings: Lungs and pleural spaces are clear. The heart size is normal. There is a right chest tunneled dialysis catheter Impression: No acute process O: BEDSIDE DYSPHAGIA RE/EVALUATION A: PATIENT PRESENTED WITH P.O. TRIALS OF SOFT CHEWABLE SOLIDS, PUREE, NECTAR THICK LIQUID, THIN LIQUID VIA CUP/SIP, AND THIN LIQUIDS VIA STRAW VOLITIONAL COUGH PRODUCTIVE/CLEARING LINGUAL/LABIAL/FACIAL MUSCULATURE PRESENTS INTACT RELATIVE TO STRENGTH/ROM/COORDINATION PATIENT APPEARED TO TOLERATE ALL CONSISTENCIES EXCEPT FOR UNCONTROLLED SIPS OF THIN LIQUID VIA STRAW WHICH ELLICITED A COUGH RESPONSE X2 DENTITION IS WFL ORAL PHASE OF SWALLOW WAS ESSENTIALLY INTACT WITH NO ANTERIOR SPILLAGE AND NEGLIGIBLE RESIDUE OF SOLIDS ON LINGUAL SURFACE. THIS RESIDUE CLEARED WITH LIQUID WASH BOLUS FORMATION AND MANIPULATION WAS WFL. PHARYNGEAL PHASE PALPATED, HYOLARYNGEAL EXCURSION APPEARED TO BE TIMELY/ADEQUATE FOR AIRWAY PROTECTION. NO CHANGES NOTED IN VOCAL QUALITY OR RESPIRATION RATE DURING P.O. TRIALS. P: PATIENT PRESENTS SAFE TO RESUME MODIFIED TEXTURE DIET (MECH SOFT WITH THIN LIQUIDS TOTAL ASSIST WITH MEALS. DUE TO IMPULSIVITY, THIN LIQUIDS NEED TO BE PRESENTED VIA CUP SIP NO STRAWS. MEDICATIONS TOLERATED. SKILLED ST INTERVENTION FOR DYSPHAGIA TX/MANAGEMENT, DIET TOLERANCE, ANALYZE/ADJUST DIET TEXTURE/ADVANCE TOLERATED DISCUSSED FINDINGS/RECOMMENDATIONS WITH RN THANK YOU FOR THIS REFERRAL.
--- NOTE | 2020-08-26 15:09 | Diagnostic Imaging Report ---
Indications: Abdominal pain. Abnormal sonogram Technique: IV administration 5.9 mCi 99 M technetium Choletec. Serial images obtained over the abdomen for one hour Comparison: Reference made to abdominal sonogram 08/24/2020 Findings: Prompt tracer uptake within the liver. Extrahepatic bile ducts are seen at 13 minutes. Excretion into the duodenum demonstrated at 60 minutes. Gallbladder visualized at 34 minutes. Impression: Normal hepatobiliary scan. No evidence of acute cholecystitis or common bile duct obstruction
--- NOTE | 2020-08-26 15:50 | Cardiac Electrophysiology PN ---
Assessment/Plan Assessment/Plan 1. Atrial fibrillation with rapid ventricular response. Converted to SR after Cardizem drip that is now DCed. On Lopressor 25 po bid 2. Elevated troponin, likely due to sepsis and hypotension and tachycardia. EF 40% 3. CHF EF 40% On Lopressor and HD 3. End-stage renal disease and hyperkalemia. Hemodialysis per Dr. Germain. Patient already has right IJ PermCath. 4. Anemia. 5. Hyperkalemia. Received glucose and insulin. Subjective Subjective Now in SR in ICU. Confused off pressors. Troponin increased to 0.4. Took out NG tube. Had HD yesterday and tomorrow. Objective Last 24 Hour Vital Signs Date Time Temp Pulse Resp B/P (MAP) Pulse Ox O2 Delivery O2 Flow Rate FiO2 08/26/20 12:00 96.3 78 18 136/91 (106) 95 08/26/20 12:00 Room Air 08/26/20 09:00 88 145/90 08/26/20 08:00 87 08/26/20 08:00 96.3 88 16 145/90 (108) 95 08/26/20 08:00 Room Air 08/26/20 04:25 Room Air 08/26/20 04:00 98.2 95 19 126/80 (95) 95 08/26/20 03:27 95 08/26/20 00:00 97.7 105 21 131/85 (100) 98 08/26/20 00:00 Nasal Cannula 2.0 08/25/20 23:00 109 14 98 08/25/20 22:00 109 15 134/81 (98) 95 08/25/20 21:00 118 19 136/84 (101) 08/25/20 20:51 123 139/89 08/25/20 20:00 Nasal Cannula 2.0 08/25/20 20:00 98.1 120 23 134/80 (98) 08/25/20 20:00 122 08/25/20 18:58 122 22 140/88 (105) 9 08/25/20 18:00 99.3 125 33 158/97 (117) 95 08/25/20 17:00 113 163/110 (127) 08/25/20 16:00 100 20 134/97 (109) 94 08/25/20 16:00 Nasal Cannula 2.0 08/25/20 16:00 101 149/103 (118) 08/25/20 16:00 113 Intake and Output 08/25/20 08/26/20 19:00 07:00 Intake Total 110 ml 195 ml Output Total 270 ml 0 ml Balance -160 ml 195 ml IV Total 110 ml 55 ml Tube Feeding 140 ml Output Urine Total 120 ml 0 ml Hemodialysis UF 150 ml # Bowel Movements 1 3 Laboratory Tests Test 08/26/20 04:15 White Blood Count 19.0 K/UL (4.8-10.8) H Red Blood Count 2.94 M/UL (4.70-6.10) L Hemoglobin 10.2 G/DL (14.2-18.0) L Hematocrit 28.9 % (42.0-52.0) L Mean Corpuscular Volume 98 FL (80-99) Mean Corpuscular Hemoglobin 34.5 PG (27.0-31.0) H Mean Corpuscular Hemoglobin Concent 35.1 G/DL (32.0-36.0) Red Cell Distribution Width 13.9 % (11.6-14.8) Platelet Count 109 K/UL (150-450) L Mean Platelet Volume 6.0 FL (6.5-10.1) L Neutrophils (%) (Auto) % (45.0-75.0) Lymphocytes (%) (Auto) % (20.0-45.0) Monocytes (%) (Auto) % (1.0-10.0) Eosinophils (%) (Auto) % (0.0-3.0) Basophils (%) (Auto) % (0.0-2.0) Differential Total Cells Counted 100 Neutrophils % (Manual) 81 % (45-75) H Lymphocytes % (Manual) 4 % (20-45) L Monocytes % (Manual) 3 % (1-10) Eosinophils % (Manual) 0 % (0-3) Basophils % (Manual) 0 % (0-2) Band Neutrophils 12 % (0-8) H Platelet Estimate Decreased L Platelet Morphology Normal Hypochromasia 1+ Sodium Level 138 MMOL/L (136-145) Potassium Level 3.0 MMOL/L (3.5-5.1) L Chloride Level 101 MMOL/L (98-107) Carbon Dioxide Level 18 MMOL/L (21-32) L Anion Gap 20 mmol/L (5-15) H Blood Urea Nitrogen 52 mg/dL (7-18) H Creatinine 6.7 MG/DL (0.55-1.30) H Estimat Glomerular Filtration Rate 8.9 mL/min (>60) Glucose Level 179 MG/DL (74-106) H Calcium Level 7.9 MG/DL (8.5-10.1) L Phosphorus Level 5.0 MG/DL (2.5-4.9) H Magnesium Level 2.4 MG/DL (1.8-2.4) Total Bilirubin 0.9 MG/DL (0.2-1.0) Aspartate Amino Transf (AST/SGOT) 63 U/L (15-37) H Alanine Aminotransferase (ALT/SGPT) 50 U/L (12-78) Alkaline Phosphatase 82 U/L (46-116) Total Creatine Kinase 378 U/L (26-308) H C-Reactive Protein, Quantitative 52.2 mg/dL (0.00-0.90) H Pro-B-Type Natriuretic Peptide > 84252 pg/mL (0-125) H Total Protein 8.1 G/DL (6.4-8.2) Albumin 2.3 G/DL (3.4-5.0) L Globulin 5.8 g/dL Albumin/Globulin Ratio 0.4 (1.0-2.7) L Random Vancomycin Level 14.6 ug/mL Objective HEAD AND NECK: Positive JVD. LUNGS: Decreased breath sounds. CARDIOVASCULAR: Shows irregular and tachycardic. S1, S2 with no gallop. ABDOMEN: Soft. EXTREMITIES: Chronic skin changes and multiple sclerotic lesions suspicious for scabies. Kurtis Fisher MD Aug 26, 2020 15:50
--- NOTE | 2020-08-26 15:52 | NUR ---
CASE MANAGEMENT:REVIEW 08/26/20 SI: AFIB W/RVR. HEPATIC ENCEPHALOPATHY ^TROPONIN. ESRD 96.3 78 18 136/91 95% ON RA WBC+19.0 PLT-109 BUN+52 CR+6.7 IS: IV ZOSYN Q8HRS LOPRESSOR PO Q12 K-DUR NG X1 PREVACID NG BID : ICU STATUS
[2020-08-26 16:00] VITALS: BP 137/94
--- NOTE | 2020-08-26 16:19 | Diagnostic Imaging Report ---
Indication: Pain, trauma Technique: 3 views left foot Comparison: none Findings: There is hammertoe deformity of the second through fifth digits. The bones are osteoporotic. There are vascular calcifications. No acute fracture. No dislocation. The joint spaces are preserved. Impression: No acute bony trauma
--- NOTE | 2020-08-26 18:41 | NUR ---
NURSE NOTES: Dr. Bhandari made aware of patient removing Femoral Tripple Lumen. No new orders given.
--- NOTE | 2020-08-26 18:42 | NUR ---
NURSE NOTES: Per Speech Therapist patient can tolerate mechanical soft chop. Dr. Palomares informed and agreed.
--- NOTE | 2020-08-26 19:19 | NUR ---
NURSE HAND-OFF REPORT: Important Events on Shift:[Pt removed right femoral triple lumen catheter, Dr. Bhandari aware. Pt diet changed per speech therapist, Dr. Albert aware.] Patient Status: [Full Code] Diet: [Renal Mechanical Soft Chopped Diet] Pending Orders: [HD for 08/27/20 w/ VIP, notified.] Pending Results/Labs:[] Pending MD notification:[] Latest Vital Signs: Temperature 96.8 , Pulse 84 , B/P 137 /94 , Respiratory Rate 20 , O2 SAT 99 , Room Air, O2 Flow Rate 2.0 . Vital Sign Comment: [] EKG Rhythm: Sinus Rhythm w/BBB Rhythm change?: N MD Notified?: - MD Response: Latest Grossman Fall Score: 50 Fall Risk: High Risk Safety Measures: Call light Within Reach, Bed Alarm Zone 3, Side Rails Side Rails x3, Bed position Low and Locked. Fall Precautions: Yellow Socks Yellow Gown Door Sign Patient Fall Education Report given to [FRANSISCA, RN].
--- NOTE | 2020-08-26 19:25 | NUR ---
NURSE NOTES: Received report from MARINA Carpio. Pt awake in bed, watching tv, afebrile, able to communicate. AO x 2. Has no respiratory distress noted. On RA saturating at 100%. With right upper chest permacath intact, asymptomatic and dressing is clean and dry. With Left FA 22 G IV line intact, patent and asymptomatic. With both soft wrist restraints. Skin is intact. Pulses are palpable. No paresthesia noted. Needs were attended. Bed rails are up and wheels are locked. Continue plan of care
[2020-08-26 20:00] VITALS: BP 147/98
--- NOTE | 2020-08-26 21:19 | General Progress Note ---
Subjective ROS Limited/Unobtainable: Yes Allergies: Coded Allergies: No Known Allergies (Unverified , 08/23/20) Objective Last 24 Hour Vital Signs Date Time Temp Pulse Resp B/P (MAP) Pulse Ox O2 Delivery O2 Flow Rate FiO2 08/26/20 20:49 82 147/98 08/26/20 20:00 98.1 82 18 147/98 (114) 99 08/26/20 20:00 Room Air 08/26/20 16:00 96.8 84 20 137/94 (108) 99 08/26/20 16:00 Room Air 08/26/20 16:00 82 08/26/20 12:00 84 08/26/20 12:00 96.3 78 18 136/91 (106) 95 08/26/20 12:00 Room Air 08/26/20 09:00 88 145/90 08/26/20 08:00 87 08/26/20 08:00 96.3 88 16 145/90 (108) 95 08/26/20 08:00 Room Air 08/26/20 04:25 Room Air 08/26/20 04:00 98.2 95 19 126/80 (95) 95 08/26/20 03:27 95 08/26/20 00:00 97.7 105 21 131/85 (100) 98 08/26/20 00:00 Nasal Cannula 2.0 08/25/20 23:00 109 14 98 08/25/20 22:00 109 15 134/81 (98) 95 Intake and Output 08/25/20 08/26/20 19:00 07:00 Intake Total 110 ml 195 ml Output Total 270 ml 0 ml Balance -160 ml 195 ml IV Total 110 ml 55 ml Tube Feeding 140 ml Output Urine Total 120 ml 0 ml Hemodialysis UF 150 ml # Bowel Movements 1 3 Laboratory Tests 08/26/20 04:15: White Blood Count 19.0H, Red Blood Count 2.94L, Hemoglobin 10.2L, Hematocrit 28.9L, Mean Corpuscular Volume 98, Mean Corpuscular Hemoglobin 34.5H, Mean Corpuscular Hemoglobin Concent 35.1, Red Cell Distribution Width 13.9, Platelet Count 109L, Mean Platelet Volume 6.0L, Neutrophils (%) (Auto) , Lymphocytes (%) (Auto) , Monocytes (%) (Auto) , Eosinophils (%) (Auto) , Basophils (%) (Auto) , Differential Total Cells Counted 100, Neutrophils % (Manual) 81H, Lymphocytes % (Manual) 4L, Monocytes % (Manual) 3, Eosinophils % (Manual) 0, Basophils % (Manual) 0, Band Neutrophils 12H, Platelet Estimate DecreasedL, Platelet Morphology Normal, Hypochromasia 1+, Sodium Level 138, Potassium Level 3.0L, Chloride Level 101, Carbon Dioxide Level 18L, Anion Gap 20H, Blood Urea Nitrogen 52H, Creatinine 6.7H, Estimat Glomerular Filtration Rate 8.9, Glucose Level 179H , Calcium Level 7.9L, Phosphorus Level 5.0H, Magnesium Level 2.4, Total Bilirubin 0.9, Aspartate Amino Transf (AST/SGOT) 63H, Alanine Aminotransferase (ALT/SGPT) 50, Alkaline Phosphatase 82, Total Creatine Kinase 378H, C-Reactive Protein, Quantitative 52.2H, Pro-B-Type Natriuretic Peptide > 31766Y, Total Protein 8.1, Albumin 2.3L, Globulin 5.8, Albumin/Globulin Ratio 0.4L, Random Vancomycin Level 14.6 Height (Feet): 5 Height (Inches): 6.00 Weight (Pounds): 121 Assessment/Plan Problem List: (1) ESRD (end stage renal disease) ICD Codes: N18.6 - End stage renal disease SNOMED: 17723895 (2) Troponin level elevated ICD Codes: R77.8 - Other specified abnormalities of plasma proteins SNOMED: 070092748, 064199575, 341525681 (3) Elevated LFTs ICD Codes: R79.89 - Other specified abnormal findings of blood chemistry SNOMED: 961530875, 679749039 (4) Hyperkalemia, diminished renal excretion ICD Codes: E87.5 - Hyperkalemia SNOMED: 30273854, 774061878, 408385044 (5) Altered level of consciousness ICD Codes: R40.4 - Transient alteration of awareness SNOMED: 8224769 Status: progressing Assessment/Plan: afebrile esrd on hd agitated remove lines dr carrington consutled check labs sepsis metabolic encephalopathy elevated ammonia is improving Lev Bhandari MD Aug 26, 2020 21:19
--- NOTE | 2020-08-26 23:39 | General Progress Note ---
Subjective Allergies: Coded Allergies: No Known Allergies (Unverified , 08/23/20) Subjective above noted more awake today NGT out passed swallow eval Objective Last 24 Hour Vital Signs Date Time Temp Pulse Resp B/P (MAP) Pulse Ox O2 Delivery O2 Flow Rate FiO2 08/26/20 20:49 82 147/98 08/26/20 20:00 98.1 82 18 147/98 (114) 99 08/26/20 20:00 Room Air 08/26/20 19:25 82 08/26/20 16:00 96.8 84 20 137/94 (108) 99 08/26/20 16:00 Room Air 08/26/20 16:00 82 08/26/20 12:00 84 08/26/20 12:00 96.3 78 18 136/91 (106) 95 08/26/20 12:00 Room Air 08/26/20 09:00 88 145/90 08/26/20 08:00 87 08/26/20 08:00 96.3 88 16 145/90 (108) 95 08/26/20 08:00 Room Air 08/26/20 04:25 Room Air 08/26/20 04:00 98.2 95 19 126/80 (95) 95 08/26/20 03:27 95 08/26/20 00:00 97.7 105 21 131/85 (100) 98 08/26/20 00:00 Nasal Cannula 2.0 Intake and Output 08/25/20 08/26/20 19:00 07:00 Intake Total 110 ml 195 ml Output Total 270 ml 0 ml Balance -160 ml 195 ml IV Total 110 ml 55 ml Tube Feeding 140 ml Output Urine Total 120 ml 0 ml Hemodialysis UF 150 ml # Bowel Movements 1 3 Laboratory Tests 08/26/20 04:15: White Blood Count 19.0H, Red Blood Count 2.94L, Hemoglobin 10.2L, Hematocrit 28.9L, Mean Corpuscular Volume 98, Mean Corpuscular Hemoglobin 34.5H, Mean Corpuscular Hemoglobin Concent 35.1, Red Cell Distribution Width 13.9, Platelet Count 109L, Mean Platelet Volume 6.0L, Neutrophils (%) (Auto) , Lymphocytes (%) (Auto) , Monocytes (%) (Auto) , Eosinophils (%) (Auto) , Basophils (%) (Auto) , Differential Total Cells Counted 100, Neutrophils % (Manual) 81H, Lymphocytes % (Manual) 4L, Monocytes % (Manual) 3, Eosinophils % (Manual) 0, Basophils % (Manual) 0, Band Neutrophils 12H, Platelet Estimate DecreasedL, Platelet Morphology Normal, Hypochromasia 1+, Sodium Level 138, Potassium Level 3.0L, Chloride Level 101, Carbon Dioxide Level 18L, Anion Gap 20H, Blood Urea Nitrogen 52H, Creatinine 6.7H, Estimat Glomerular Filtration Rate 8.9, Glucose Level 179H , Calcium Level 7.9L, Phosphorus Level 5.0H, Magnesium Level 2.4, Total Bilirubin 0.9, Aspartate Amino Transf (AST/SGOT) 63H, Alanine Aminotransferase (ALT/SGPT) 50, Alkaline Phosphatase 82, Total Creatine Kinase 378H, C-Reactive Protein, Quantitative 52.2H, Pro-B-Type Natriuretic Peptide > 87766O, Total Protein 8.1, Albumin 2.3L, Globulin 5.8, Albumin/Globulin Ratio 0.4L, Random Vancomycin Level 14.6 Height (Feet): 5 Height (Inches): 6.00 Weight (Pounds): 121 Objective Dishevelled man NCAT supple CTA RR abd soft no edema Assessment/Plan Status: progressing Assessment/Plan: Assessment - renal failure - Rhabdo - Hepatitis C (+) - suspect toxic-metabolic encephalopathy - improving - cholelithiasis, per abd ultrasound Recommendations - supportive care - HD - po diet - follow LFT Franklin Palomares MD Aug 26, 2020 23:39
[2020-08-27] VITALS: BP 144/99
--- NOTE | 2020-08-27 | NUR ---
NURSE NOTES: PT was given partial bed bath. change linen and gown. pt tolerated well. Continue to monitor the patient.
[2020-08-27] MEDS: Piperacillin/Tazobactam 2.25 GM in D5W 55 ML IV SCH ×2 (01:13→09:15)
[2020-08-27 04:00] VITALS: BP 123/87
[2020-08-27 05:20] LABS: HEMATOCRIT 27.4 % (42.0-52.0); HEMOGLOBIN 9.8 G/DL (14.2-18.0); MEAN CORPUSCULAR VOLUME 95 FL (80-99); PLATELET COUNT 49 K/UL (150-450); RED BLOOD COUNT 2.89 M/UL (4.70-6.10); RED CELL DISTRIBUTION WIDTH 14.5 % (11.6-14.8); WHITE BLOOD COUNT 12.1 K/UL (4.8-10.8)
[2020-08-27 05:49] LABS: ALANINE AMINOTRANSFERASE 32 U/L (12-78); ALBUMIN/GLOBULIN RATIO 0.4 (1.0-2.7); ALKALINE PHOSPHATASE 88 U/L (46-116); ANION GAP 18 mmol/L (5-15); ASPARTATE AMINO TRANSFERASE 29 U/L (15-37); BILIRUBIN,TOTAL 0.6 MG/DL (0.2-1.0); BLOOD UREA NITROGEN 69 mg/dL (7-18); CARBON DIOXIDE 20 MMOL/L (21-32); CHLORIDE 99 MMOL/L (98-107); CREATININE 7.7 MG/DL (0.55-1.30); PHOSPHORUS 4.2 MG/DL (2.5-4.9); POTASSIUM 2.9 MMOL/L (3.5-5.1); SODIUM 136 MMOL/L (136-145)
--- NOTE | 2020-08-27 06:15 | NUR ---
NURSE NOTES: Pt asleep in bed. Gown and linen changed. No discomforts noted. Continue to monitor the patient.
--- NOTE | 2020-08-27 07:30 | NUR ---
NURSE NOTES: Received pt from RN FRANSISCA, pt is sleeping and confused, pt is in RA, no SOB or acute respiratory distress noted. Pt is on continues heart monitoring. pt has intact iv access LFA 20G and LFA 22G SL and RH 22G SL. pt has rectal tube in place is working well. all needs attended, bed is locked and is in the lowest position, call light within easy reach. will continue to monitor.
[2020-08-27 08:00] VITALS: BP 133/92
--- NOTE | 2020-08-27 10:14 | Pulmonology Progress Note ---
Subjective ROS Limited/Unobtainable: Yes Interval Events: None new Constitutional: Reports: no symptoms, other - transferred from ICU to [facility] HEENT: Repors: no symptoms Respiratory: Reports: no symptoms Cardiovascular: Reports: no symptoms Gastrointestinal/Abdominal: Reports: no symptoms Allergies: Coded Allergies: No Known Allergies (Unverified , 08/23/20) Objective Last 24 Hour Vital Signs Date Time Temp Pulse Resp B/P (MAP) Pulse Ox O2 Delivery O2 Flow Rate FiO2 08/27/20 09:00 70 133/92 08/27/20 08:00 98.4 70 20 133/92 (106) 100 08/27/20 08:00 Room Air 08/27/20 04:00 Room Air 08/27/20 04:00 96.7 81 17 123/87 (99) 99 08/27/20 03:40 79 08/27/20 00:00 Room Air 08/27/20 00:00 97.3 81 17 144/99 (114) 99 08/26/20 23:46 83 08/26/20 20:49 82 147/98 08/26/20 20:00 98.1 82 18 147/98 (114) 99 08/26/20 20:00 Room Air 08/26/20 19:25 82 08/26/20 16:00 96.8 84 20 137/94 (108) 99 08/26/20 16:00 Room Air 08/26/20 16:00 82 08/26/20 12:00 84 08/26/20 12:00 96.3 78 18 136/91 (106) 95 08/26/20 12:00 Room Air Intake and Output 08/26/20 08/27/20 19:00 07:00 Intake Total 400 ml 495 ml Balance 400 ml 495 ml Intake Oral 400 ml 440 ml IV Total 55 ml # Voids 3 # Bowel Movements 7 2 General Appearance: no acute distress HEENT: normocephalic Respiratory: chest wall non-tender, lungs clear Cardiovascular: normal peripheral pulses Abdomen: normal bowel sounds Microbiology Date/Time Source Procedure Growth Status 08/26/20 16:30 Stool Clostridium difficile Toxin Assay - Final Complete Laboratory Tests 08/27/20 03:35: White Blood Count 12.1H, Red Blood Count 2.89L, Hemoglobin 9.8L, Hematocrit 27.4L, Mean Corpuscular Volume 95, Mean Corpuscular Hemoglobin 33.9H, Mean Corpuscular Hemoglobin Concent 35.7, Red Cell Distribution Width 14.5, Platelet Count 49#L, Mean Platelet Volume 8.0, Neutrophils (%) (Auto) , Lymphocytes (%) ( Auto) , Monocytes (%) (Auto) , Eosinophils (%) (Auto) , Basophils (%) (Auto) , Differential Total Cells Counted 100, Neutrophils % (Manual) 85H, Lymphocytes % (Manual) 7L, Monocytes % (Manual) 5, Eosinophils % (Manual) 3, Basophils % (Manual) 0, Band Neutrophils 0, Platelet Estimate DecreasedL, Platelet Morphology Normal, Hypochromasia 1+, Anisocytosis 1+, Sodium Level 136, Potassium Level 2.9L, Chloride Level 99, Carbon Dioxide Level 20L, Anion Gap 18H , Blood Urea Nitrogen 69H, Creatinine 7.7H, Estimat Glomerular Filtration Rate 7.6, Glucose Level 210H, Calcium Level 8.0L, Phosphorus Level 4.2, Magnesium Level 2.4, Total Bilirubin 0.6, Aspartate Amino Transf (AST/SGOT) 29, Alanine Aminotransferase (ALT/SGPT) 32, Alkaline Phosphatase 88, C-Reactive Protein, Quantitative 18.0H, Pro-B-Type Natriuretic Peptide > 72580Y, Total Protein 7.7, Albumin 2.0L, Globulin 5.7, Albumin/Globulin Ratio 0.4L Current Medications Medications (Trade) Dose Ordered Sig/Sylvia Route PRN Reason Start Time Stop Time Status Last Admin Dose Admin Acetaminophen (Tylenol) 500 mg Q4H PRN ORAL Mild Pain (Pain Scale 1-3) 08/24/20 01:15 09/23/20 01:14 08/25/20 00:36 Chlorhexidine Gluconate (Coco-Hex 2%) 1 applic DAILY@1999 TOPIC 08/27/20 20:00 11/25/20 19:59 Lansoprazole (Prevacid) 30 mg BID NG 08/26/20 18:00 09/25/20 17:59 08/27/20 09:15 Metoprolol Tartrate (Lopressor) 25 mg Q12HR ORAL 08/24/20 21:00 11/22/20 20:59 08/26/20 20:49 Piperacillin Sod/ Tazobactam Sod 2.25 gm/Dextrose 55 ml @ 110 mls/hr Q8H IV 08/24/20 17:00 08/31/20 16:59 08/27/20 09:15 Vancomycin HCl ([facility] pharmacy to dose) 1 ea DAILY PRN MISC Per rx protocol 08/24/20 15:30 09/23/20 15:29 Assessment/Plan Assessment/Plan ASSESSMENT AND PLAN: 1. Atrial fibrillation with rapid ventricular response. Currently off Cardizem 2. Elevated troponin, likely due to sepsis and hypotension and tachycardia. 3. End-stage renal disease and hyperkalemia. Hemodialysis per Dr. Germain. 4. Anemia. 5. Hyperkalemia. Received glucose and insulin. 6. Hepatic encephalopathy; continue lactulose Continue to monitor for hypotension Saturating well on low flow O2 Ada Sofia Omar Syed MD Aug 27, 2020 10:14
--- NOTE | 2020-08-27 10:23 | NUR ---
Speech Pathology Note (Dysphagia Discharge Note) Brief Note: Mr. Ibarra is a 50 year old male admitted [facility] on 08/23/2020 for sepsis, abnormal hepatic panel, and renal failure on 08/23/2020. He received urgent HD, hemodynamically maintained admitted ED to ICU in the evening. Initial bedside dysphagia swallow evaluation was done on 08/24/2020. Pt was re-evaluated on 08/26/2020 for swallow evaluation passed, and placed on solid diet. This morning he is eating breakfast with solid and liquid. He is self feeding and enjoying it. RN is observing him eating. Pt is doing well and no indication of swallow intervention at this time. D/C interpretation: 1. Functional swallow 2. More alert and oriented D/C recommendation: 1. Regular diet and thin liquid Signed off. Shea Go
--- NOTE | 2020-08-27 10:30 | Nephrology Progress Note ---
Assessment/Plan Problem List: (1) ESRD (end stage renal disease) (2) Altered level of consciousness (3) Hyperkalemia, diminished renal excretion (4) Elevated LFTs (5) Troponin level elevated Assessment Plan August 27: Patient due for dialysis today. Potassium supplement given. Continue to check ammonia level. Continue per ID advice. Remains encephalopathic. August 26: Patient in SDU. Was dialyzed yesterday. Will give potassium supplement. Will arrange for dialysis tomorrow. Continue per consultants. Leukocytosis worsening. Continue per ID advice. August 25: Discussed with [facility]. Due for dialysis today. Continue per consultants. Waiting for blood culture results. August 24: Patient seen in ICU. Discussed with [facility]. Patient was dialyzed yesterday. Electrolyte abnormalities no much improved. Continue per consultants. Next dialysis tomorrow. Subjective ROS Limited/Unobtainable: No Constitutional: Reports: malaise Objective Objective Last 24 Hour Vital Signs Date Time Temp Pulse Resp B/P (MAP) Pulse Ox O2 Delivery O2 Flow Rate FiO2 08/27/20 09:00 70 133/92 08/27/20 08:00 98.4 70 20 133/92 (106) 100 08/27/20 08:00 Room Air 08/27/20 04:00 Room Air 08/27/20 04:00 96.7 81 17 123/87 (99) 99 08/27/20 03:40 79 08/27/20 00:00 Room Air 08/27/20 00:00 97.3 81 17 144/99 (114) 99 08/26/20 23:46 83 08/26/20 20:49 82 147/98 08/26/20 20:00 98.1 82 18 147/98 (114) 99 08/26/20 20:00 Room Air 08/26/20 19:25 82 08/26/20 16:00 96.8 84 20 137/94 (108) 99 08/26/20 16:00 Room Air 08/26/20 16:00 82 08/26/20 12:00 84 08/26/20 12:00 96.3 78 18 136/91 (106) 95 08/26/20 12:00 Room Air Intake and Output 08/26/20 08/27/20 19:00 07:00 Intake Total 400 ml 495 ml Balance 400 ml 495 ml Intake Oral 400 ml 440 ml IV Total 55 ml # Voids 3 # Bowel Movements 7 2 Current Medications Medications (Trade) Dose Ordered Sig/Sylvia Route PRN Reason Start Time Stop Time Status Last Admin Dose Admin Acetaminophen (Tylenol) 500 mg Q4H PRN ORAL Mild Pain (Pain Scale 1-3) 08/24/20 01:15 09/23/20 01:14 08/25/20 00:36 Chlorhexidine Gluconate (Coco-Hex 2%) 1 applic DAILY@2000 TOPIC 08/27/20 20:00 11/25/20 19:59 Lansoprazole (Prevacid) 30 mg BID NG 08/26/20 18:00 09/25/20 17:59 08/27/20 09:15 Metoprolol Tartrate (Lopressor) 25 mg Q12HR ORAL 08/24/20 21:00 11/22/20 20:59 08/26/20 20:49 Piperacillin Sod/ Tazobactam Sod 2.25 gm/Dextrose 55 ml @ 110 mls/hr Q8H IV 08/24/20 17:00 08/31/20 16:59 08/27/20 09:15 Vancomycin HCl ([facility] pharmacy to dose) 1 ea DAILY PRN MISC Per rx protocol 08/24/20 15:30 09/23/20 15:29 Laboratory Tests 08/27/20 03:35: White Blood Count 12.1H, Red Blood Count 2.89L, Hemoglobin 9.8L, Hematocrit 27.4L, Mean Corpuscular Volume 95, Mean Corpuscular Hemoglobin 33.9H, Mean Corpuscular Hemoglobin Concent 35.7, Red Cell Distribution Width 14.5, Platelet Count 49#L, Mean Platelet Volume 8.0, Neutrophils (%) (Auto) , Lymphocytes (%) (Auto) , Monocytes (%) (Auto) , Eosinophils (%) (Auto) , Basophils (%) (Auto) , Differential Total Cells Counted 100, Neutrophils % (Manual) 85H, Lymphocytes % (Manual) 7L, Monocytes % (Manual) 5, Eosinophils % (Manual) 3, Basophils % (Manual) 0, Band Neutrophils 0, Platelet Estimate DecreasedL, Platelet Morphology Normal, Hypochromasia 1+, Anisocytosis 1+, Sodium Level 136, Potassium Level 2.9L, Chloride Level 99, Carbon Dioxide Level 20L, Anion Gap 18H , Blood Urea Nitrogen 69H, Creatinine 7.7H, Estimat Glomerular Filtration Rate 7.6, Glucose Level 210H, Calcium Level 8.0L, Phosphorus Level 4.2, Magnesium Level 2.4, Total Bilirubin 0.6, Aspartate Amino Transf (AST/SGOT) 29, Alanine Aminotransferase (ALT/SGPT) 32, Alkaline Phosphatase 88, C-Reactive Protein, Quantitative 18.0H, Pro-B-Type Natriuretic Peptide > 33576E, Total Protein 7.7, Albumin 2.0L, Globulin 5.7, Albumin/Globulin Ratio 0.4L Height (Feet): 5 Height (Inches): 6.00 Weight (Pounds): 121 General Appearance: no apparent distress, lethargic, confused Cardiovascular: normal rate Respiratory/Chest: decreased breath sounds Abdomen: distended Alfredo Germain MD Aug 27, 2020 10:30
--- NOTE | 2020-08-27 10:30 | Infectious Diseases Prog Note ---
Assessment/Plan Assessment/Plan IMPRESSION: Sepsis or systemic inflammatory response syndrome Cholelithiasis, negative HIDA scan End-stage renal disease, Acidosis, Elevated troponin, Marijuana abuse. Elevated Hep C antibody Likely scabies, RECOMMENDATION: Discontinue vancomycin and Zosyn. We will follow up the cultures, Subjective ROS Limited/Unobtainable: No Respiratory: Reports: no symptoms Gastrointestinal/Abdominal: Reports: no symptoms Genitourinary: Reports: no symptoms Allergies: Coded Allergies: No Known Allergies (Unverified , 08/23/20) Objective Last 24 Hour Vital Signs Date Time Temp Pulse Resp B/P (MAP) Pulse Ox O2 Delivery O2 Flow Rate FiO2 08/27/20 09:00 70 133/92 08/27/20 08:00 98.4 70 20 133/92 (106) 100 08/27/20 08:00 Room Air 08/27/20 04:00 Room Air 08/27/20 04:00 96.7 81 17 123/87 (99) 99 08/27/20 03:40 79 08/27/20 00:00 Room Air 08/27/20 00:00 97.3 81 17 144/99 (114) 99 08/26/20 23:46 83 08/26/20 20:49 82 147/98 08/26/20 20:00 98.1 82 18 147/98 (114) 99 08/26/20 20:00 Room Air 08/26/20 19:25 82 08/26/20 16:00 96.8 84 20 137/94 (108) 99 08/26/20 16:00 Room Air 08/26/20 16:00 82 08/26/20 12:00 84 08/26/20 12:00 96.3 78 18 136/91 (106) 95 08/26/20 12:00 Room Air Height (Feet): 5 Height (Inches): 6.00 Weight (Pounds): 121 General Appearance: no acute distress HEENT: mucous membranes moist Respiratory/Chest: lungs clear Cardiovascular: normal rate, other - Permacath Abdomen: soft, non tender Extremities: no edema Neurologic/Psychiatric: alert, responsive Microbiology Date/Time Source Procedure Growth Status 08/26/20 16:30 Stool Clostridium difficile Toxin Assay - Final Complete Laboratory Tests Test 08/27/20 03:35 White Blood Count 12.1 K/UL (4.8-10.8) H Red Blood Count 2.89 M/UL (4.70-6.10) L Hemoglobin 9.8 G/DL (14.2-18.0) L Hematocrit 27.4 % (42.0-52.0) L Mean Corpuscular Volume 95 FL (80-99) Mean Corpuscular Hemoglobin 33.9 PG (27.0-31.0) H Mean Corpuscular Hemoglobin Concent 35.7 G/DL (32.0-36.0) Red Cell Distribution Width 14.5 % (11.6-14.8) Platelet Count 49 K/UL (150-450) #L Mean Platelet Volume 8.0 FL (6.5-10.1) Neutrophils (%) (Auto) % (45.0-75.0) Lymphocytes (%) (Auto) % (20.0-45.0) Monocytes (%) (Auto) % (1.0-10.0) Eosinophils (%) (Auto) % (0.0-3.0) Basophils (%) (Auto) % (0.0-2.0) Differential Total Cells Counted 100 Neutrophils % (Manual) 85 % (45-75) H Lymphocytes % (Manual) 7 % (20-45) L Monocytes % (Manual) 5 % (1-10) Eosinophils % (Manual) 3 % (0-3) Basophils % (Manual) 0 % (0-2) Band Neutrophils 0 % (0-8) Platelet Estimate Decreased L Platelet Morphology Normal Hypochromasia 1+ Anisocytosis 1+ Sodium Level 136 MMOL/L (136-145) Potassium Level 2.9 MMOL/L (3.5-5.1) L Chloride Level 99 MMOL/L (98-107) Carbon Dioxide Level 20 MMOL/L (21-32) L Anion Gap 18 mmol/L (5-15) H Blood Urea Nitrogen 69 mg/dL (7-18) H Creatinine 7.7 MG/DL (0.55-1.30) H Estimat Glomerular Filtration Rate 7.6 mL/min (>60) Glucose Level 210 MG/DL (74-106) H Calcium Level 8.0 MG/DL (8.5-10.1) L Phosphorus Level 4.2 MG/DL (2.5-4.9) Magnesium Level 2.4 MG/DL (1.8-2.4) Total Bilirubin 0.6 MG/DL (0.2-1.0) Aspartate Amino Transf (AST/SGOT) 29 U/L (15-37) Alanine Aminotransferase (ALT/SGPT) 32 U/L (12-78) Alkaline Phosphatase 88 U/L (46-116) C-Reactive Protein, Quantitative 18.0 mg/dL (0.00-0.90) H Pro-B-Type Natriuretic Peptide > 02059 pg/mL (0-125) H Total Protein 7.7 G/DL (6.4-8.2) Albumin 2.0 G/DL (3.4-5.0) L Globulin 5.7 g/dL Albumin/Globulin Ratio 0.4 (1.0-2.7) L Current Medications Medications (Trade) Dose Ordered Sig/Sylvia Route PRN Reason Start Time Stop Time Status Last Admin Dose Admin Acetaminophen (Tylenol) 500 mg Q4H PRN ORAL Mild Pain (Pain Scale 1-3) 08/24/20 01:15 09/23/20 01:14 08/25/20 00:36 Chlorhexidine Gluconate (Coco-Hex 2%) 1 applic DAILY@1999 TOPIC 08/27/20 20:00 11/25/20 19:59 Lansoprazole (Prevacid) 30 mg BID NG 08/26/20 18:00 09/25/20 17:59 08/27/20 09:15 Metoprolol Tartrate (Lopressor) 25 mg Q12HR ORAL 08/24/20 21:00 11/22/20 20:59 08/26/20 20:49 Piperacillin Sod/ Tazobactam Sod 2.25 gm/Dextrose 55 ml @ 110 mls/hr Q8H IV 08/24/20 17:00 08/31/20 16:59 08/27/20 09:15 [facility] 1 ea DAILY PRN MISC Per rx protocol 08/24/20 15:30 09/23/20 15:29 Jean Carlos Adamson MD Aug 27, 2020 10:30
[2020-08-27 12:00] VITALS: BP 130/70
--- NOTE | 2020-08-27 12:20 | NUR ---
RD ASSESSMENT & RECOMMENDATIONS SEE CARE ACTIVITY FOR COMPLETE ASSESSMENT DAILY ESTIMATED NEEDS: Needs based on ESRD + HD, wasting/ 51.4kg 30-35 kcals/kg 2507-6043 total kcals 1.2-2 g protein/kg 62-103 g total protein 20-22 mL/kg 8883-6991 total fluid mLs NUTRITION DIAGNOSIS: * Increased kcal/prot intake needs R/T HD needs and wasting as evidenced by pt w/ h/o ESRD, on HD, pt @ 87% [place] Body Weight, BLE w/ moderate wasting. * Altered nutrition related lab values R/T ESRD, altered lipid metabolism, hyperglycemia as evidenced by elev creat (7.7), elev BNP (>69331), elev BGs (210, 179, 227), U glu 1+, elev triglyceride (653), elev cholesterol (211). CURRENT DIET:RENAL PO DIET RECOMMENDATIONS: RENAL + CCHO MED ADDITIONAL RECOMMENDATIONS: * Daily calibrated bedscale wt * Monitor PO acceptance: add NEPRO BID at this time (425kcal/19g prot) * Monitor BGs, consider NISS-> elev BGs (210, 179, 227) -> Checking A1C is not suggested given low hgb * WC eval for wound photos * Add Nephrovite x 1 * Lipid lowering agent/ check f/up triglyceride
--- NOTE | 2020-08-27 13:09 | NUR ---
NURSE NOTES: wound nurse Tamera visited pt and did wound treatments for pt and asked wound consult, Dr Bhandari is aware and ordered consult with Dr Hodges and Dr Glasgow, noted and carried out, Dr Hodges and Pee are aware. will continue to monitor.
--- NOTE | 2020-08-27 13:13 | Cardiology Report ---
APPROVED REPORT EKG Measurement Heart [id number] <Conclusion> Normal sinus rhythm Left bundle branch block Abnormal ECG
--- NOTE | 2020-08-27 13:25 | Cardiology Report ---
APPROVED REPORT EKG Measurement Heart [id number] <Conclusion> Atrial fibrillation with rapid ventricular response Left axis deviation Left bundle branch block Abnormal ECG
--- NOTE | 2020-08-27 13:31 | NUR ---
CASE MANAGEMENT:REVIEW SI;SEPSIS. HEPATIC ENCEPHALOPATHY. ESRD. A-FIB W/RVR. 98.4 83 20 133/92 99% ON RA WBC 12.1 H/H 9.8/27.4 K+ 2.9 ANION GAP 18 BUN 69 CR 7.7 BG 210 CRP 18.0 BNP >93535 ALB 2.0 IS;K-DUR NG ONCE PREVACID NG BID ZOSYN IV Q8 [facility] STATUS DCP;PATIENT REPORTS HOMELESSNESS PLAN; INPATIENT HD TODAY
--- NOTE | 2020-08-27 14:13 | NUR ---
NURSE NOTES: Dr Hodges visited pt regarding necrotic toes, MD KEN will F/U.
--- NOTE | 2020-08-27 14:24 | Cardiac Electrophysiology PN ---
Assessment/Plan Assessment/Plan 1. Atrial fibrillation with rapid ventricular response. Converted to SR after Cardizem drip that is now DCed. On Lopressor 25 po bid 2. Elevated troponin, likely due to sepsis and hypotension and tachycardia. EF 40% 3. CHF EF 40% On Lopressor and HD 3. End-stage renal disease and hyperkalemia. Hemodialysis per Dr. Germain via right IJ PermCath. 4. Anemia. 5. Hyperkalemia. Received glucose and insulin. Subjective Subjective Now in SR transferred out of ICU. Confused in restraints. Took out NG tube. Had HD today. Objective Last 24 Hour Vital Signs Date Time Temp Pulse Resp B/P (MAP) Pulse Ox O2 Delivery O2 Flow Rate FiO2 08/27/20 12:00 Room Air 08/27/20 12:00 98.2 65 18 130/70 (90) 99 08/27/20 11:43 83 08/27/20 09:00 70 133/92 08/27/20 08:00 98.4 70 20 133/92 (106) 100 08/27/20 08:00 Room Air 08/27/20 07:43 72 08/27/20 04:00 Room Air 08/27/20 04:00 96.7 81 17 123/87 (99) 99 08/27/20 03:40 79 08/27/20 00:00 Room Air 08/27/20 00:00 97.3 81 17 144/99 (114) 99 08/26/20 23:46 83 08/26/20 20:49 82 147/98 08/26/20 20:00 98.1 82 18 147/98 (114) 99 08/26/20 20:00 Room Air 08/26/20 19:25 82 08/26/20 16:00 96.8 84 20 137/94 (108) 99 08/26/20 16:00 Room Air 08/26/20 16:00 82 Intake and Output 08/26/20 08/27/20 19:00 07:00 Intake Total 400 ml 495 ml Balance 400 ml 495 ml Intake Oral 400 ml 440 ml IV Total 55 ml # Voids 3 # Bowel Movements 7 2 Laboratory Tests Test 08/27/20 03:35 White Blood Count 12.1 K/UL (4.8-10.8) H Red Blood Count 2.89 M/UL (4.70-6.10) L Hemoglobin 9.8 G/DL (14.2-18.0) L Hematocrit 27.4 % (42.0-52.0) L Mean Corpuscular Volume 95 FL (80-99) Mean Corpuscular Hemoglobin 33.9 PG (27.0-31.0) H Mean Corpuscular Hemoglobin Concent 35.7 G/DL (32.0-36.0) Red Cell Distribution Width 14.5 % (11.6-14.8) Platelet Count 49 K/UL (150-450) #L Mean Platelet Volume 8.0 FL (6.5-10.1) Neutrophils (%) (Auto) % (45.0-75.0) Lymphocytes (%) (Auto) % (20.0-45.0) Monocytes (%) (Auto) % (1.0-10.0) Eosinophils (%) (Auto) % (0.0-3.0) Basophils (%) (Auto) % (0.0-2.0) Differential Total Cells Counted 100 Neutrophils % (Manual) 85 % (45-75) H Lymphocytes % (Manual) 7 % (20-45) L Monocytes % (Manual) 5 % (1-10) Eosinophils % (Manual) 3 % (0-3) Basophils % (Manual) 0 % (0-2) Band Neutrophils 0 % (0-8) Platelet Estimate Decreased L Platelet Morphology Normal Hypochromasia 1+ Anisocytosis 1+ Sodium Level 136 MMOL/L (136-145) Potassium Level 2.9 MMOL/L (3.5-5.1) L Chloride Level 99 MMOL/L (98-107) Carbon Dioxide Level 20 MMOL/L (21-32) L Anion Gap 18 mmol/L (5-15) H Blood Urea Nitrogen 69 mg/dL (7-18) H Creatinine 7.7 MG/DL (0.55-1.30) H Estimat Glomerular Filtration Rate 7.6 mL/min (>60) Glucose Level 210 MG/DL (74-106) H Calcium Level 8.0 MG/DL (8.5-10.1) L Phosphorus Level 4.2 MG/DL (2.5-4.9) Magnesium Level 2.4 MG/DL (1.8-2.4) Total Bilirubin 0.6 MG/DL (0.2-1.0) Aspartate Amino Transf (AST/SGOT) 29 U/L (15-37) Alanine Aminotransferase (ALT/SGPT) 32 U/L (12-78) Alkaline Phosphatase 88 U/L (46-116) C-Reactive Protein, Quantitative 18.0 mg/dL (0.00-0.90) H Pro-B-Type Natriuretic Peptide > 18585 pg/mL (0-125) H Total Protein 7.7 G/DL (6.4-8.2) Albumin 2.0 G/DL (3.4-5.0) L Globulin 5.7 g/dL Albumin/Globulin Ratio 0.4 (1.0-2.7) L Microbiology Date/Time Source Procedure Growth Status 08/26/20 16:30 Stool Clostridium difficile Toxin Assay - Final Complete Objective HEAD AND NECK: Positive JVD. LUNGS: Decreased breath sounds. CARDIOVASCULAR: Nl S1, S2 with no gallop. ABDOMEN: Soft. EXTREMITIES: Chronic skin changes and multiple sclerotic lesions suspicious for scabies. Kurtis Fisher MD Aug 27, 2020 14:24
--- NOTE | 2020-08-27 14:54 | NUR ---
FLOOR GRINDER NOTE Pt was able to communicate w/ this SW. Pt is not oriented to the situation. PT resides w/ his friend, Néstor at [address] [place], [address]. Pt does not recall Néstor's contact information. Pt is single, and has no children. Pt is unemployed and does not receive any income. UDS positive for THC. PT denies substance abuse/ETOH abuse issue. Pt declined counseling/tx intervention on substance abuse. PT also denies having mental illness. Pt reports he was ambulatory w/o DME and independent w/ ADLs. PT is focusing on DC. Pt does not have linkage to any dialysis clinic. SW will F/U as needed.
--- NOTE | 2020-08-27 15:24 | NUR ---
NURSE NOTES:WOUND CARE NOTES:PT presented with generalized hyperpigmented plaques on trunk, back and bilat lower extremities. BIlat lower ext also noted to have scattered dry crusts.Pt denied itching. Non-Blanchable erythema noted to R and L Buttocks extending into posterior upper R thigh. R Buttocks Partial thickness shearing (L)35cm x (W)3cm.Base of wound is moist and viable. L Buttocks Partial thickness shearing (L)4.5cm x (W)3.5cm. Base of wound is moist and viable. Thick callus noted to distal/lateral R foot. Perianal area is excoriated. DTPI dorsal R foot (L)2cm x (W)1.3cm. Base of wound is purpuric with red margins.Periwound skin is dry and flaky. DTPI R Hallux(L)4.5cm x (W)1cm. Base of Pressure Injury is maroon and indurated. Non-Blanchable erythema L 1st Metatarsal Head. L 4th metatarsal black with necrosis noted at head of metatarsal. Pt could not confirm or origin or length of time metatarsal has been black. Both feet are cold to touch. Tx.Plan:Apply Moisture Barrier Paste to Buttocks and posterior upper thighs with each Incontinence care. Cover sacrum with Optifoam drsg. Change every 3 days and prn. Apply Cavilon Skin Barrier to Dorsal R foot. Cover with Optifoam drsg. Change every 7 days and prn. Apply Cavilon Skin Barrier to R Hallux. Cover with Optifoam drsg. Change every 7 days and prn. Apply Betadine to L st and L 4th Metatarsals. Cover with Drsg. Change every 3 days and prn. Apply Cavilon Skin Barrier to R and L Heels. Cover each heel with Optifoam drsg . Change every 7 days and prn. Reposition at least every 2hours or as tolerated. Off-load heels with pillow.
[2020-08-27 16:00] VITALS: BP 128/87
--- NOTE | 2020-08-27 16:11 | Consultation ---
History of Present Illness General Date patient seen: Aug 27, 2020 Reason for Hospitalization: Altered Level of Consciousness Present Illness HPI 50 year old male currently admitted to [facility] SDU ill appearing confused asking to leave noted to have abnormal labs, multiple prior abrasions to lower extremities and ischemia. surgery called to evaluate Allergies: Coded Allergies: No Known Allergies (Unverified , 08/23/20) COVID-19 Screening Contact w/high risk pt: No Experienced COVID-19 symptoms?: No Medication History No Active Prescriptions or Reported Meds Patient History Limited by: medical condition History Provided By: Medical Record, PMD Healthcare decision maker N Resuscitation status Advanced Directive on File Past Medical/Surgical History Past Medical/Surgical History: (1) Hyperkalemia, diminished renal excretion (2) Elevated LFTs (3) Troponin level elevated (4) ESRD (end stage renal disease) (5) Altered level of consciousness Review of Systems Review of Symptoms General ROS: no weight loss or fever Psychological ROS: no depression or mood changes, no memory loss Ophthalmic ROS: no visual changes or eye irritation ENT ROS: no nasal congestion, hearing loss, dizziness Allergy and Immunology ROS: no allergic symptoms or urticaria Hematological and Lymphatic ROS: no swollen glands, unusual bleeding or bruising Endocrine ROS: no polyuria, polydipsia, weight changes, temperature intolerance Respiratory ROS: no cough, shortness of breath, or wheezing Cardiovascular ROS: no chest pain or dyspnea on exertion Gastrointestinal ROS: denies abdominal pain, bright red blood in stool. Musculoskeletal ROS: no myalgias or arthralgias Neurological ROS: no TIA or stroke symptoms Dermatological ROS: no new or changing skin lesions, rashes or pruritis Physical Exam Physical Exam General appearance: alert, cooperative, no distress, appears stated age Head: Normocephalic, without obvious abnormality, atraumatic Eyes: conjunctivae/corneas clear. PERRL, EOM's intact. Fundi benign Throat: Lips, mucosa, and tongue normal. Teeth and gums normal Neck: supple, symmetrical, trachea midline, no adenopathy, thyroid: not enlarged, symmetric, no tenderness/mass/nodules, no carotid bruit and no JVD Lungs: clear to auscultation bilaterally Heart: regular rate and rhythm, S1, S2 normal, no murmur, click, rub or gallop Abdomen: soft, non-tender. Bowel sounds normal. No masses, no organomegaly Extremities: extremities see below Pulses: 2+ and symmetric Skin: Skin color, texture, turgor normal. No rashes or lesions Neurologic: Grossly normal Last 24 Hour Vital Signs Date Time Temp Pulse Resp B/P (MAP) Pulse Ox O2 Delivery O2 Flow Rate FiO2 08/27/20 12:00 Room Air 08/27/20 12:00 98.2 65 18 130/70 (90) 99 08/27/20 11:43 83 08/27/20 09:00 70 133/92 08/27/20 08:00 98.4 70 20 133/92 (106) 100 08/27/20 08:00 Room Air 08/27/20 07:43 72 08/27/20 04:00 Room Air 08/27/20 04:00 96.7 81 17 123/87 (99) 99 08/27/20 03:40 79 08/27/20 00:00 Room Air 08/27/20 00:00 97.3 81 17 144/99 (114) 99 08/26/20 23:46 83 08/26/20 20:49 82 147/98 08/26/20 20:00 98.1 82 18 147/98 (114) 99 08/26/20 20:00 Room Air 08/26/20 19:25 82 Intake and Output 08/26/20 08/27/20 19:00 07:00 Intake Total 400 ml 495 ml Balance 400 ml 495 ml Intake Oral 400 ml 440 ml IV Total 55 ml # Voids 3 # Bowel Movements 7 2 Laboratory Tests Test 08/27/20 03:35 White Blood Count 12.1 K/UL (4.8-10.8) H Red Blood Count 2.89 M/UL (4.70-6.10) L Hemoglobin 9.8 G/DL (14.2-18.0) L Hematocrit 27.4 % (42.0-52.0) L Mean Corpuscular Volume 95 FL (80-99) Mean Corpuscular Hemoglobin 33.9 PG (27.0-31.0) H Mean Corpuscular Hemoglobin Concent 35.7 G/DL (32.0-36.0) Red Cell Distribution Width 14.5 % (11.6-14.8) Platelet Count 49 K/UL (150-450) #L Mean Platelet Volume 8.0 FL (6.5-10.1) Neutrophils (%) (Auto) % (45.0-75.0) Lymphocytes (%) (Auto) % (20.0-45.0) Monocytes (%) (Auto) % (1.0-10.0) Eosinophils (%) (Auto) % (0.0-3.0) Basophils (%) (Auto) % (0.0-2.0) Differential Total Cells Counted 100 Neutrophils % (Manual) 85 % (45-75) H Lymphocytes % (Manual) 7 % (20-45) L Monocytes % (Manual) 5 % (1-10) Eosinophils % (Manual) 3 % (0-3) Basophils % (Manual) 0 % (0-2) Band Neutrophils 0 % (0-8) Platelet Estimate Decreased L Platelet Morphology Normal Hypochromasia 1+ Anisocytosis 1+ Sodium Level 136 MMOL/L (136-145) Potassium Level 2.9 MMOL/L (3.5-5.1) L Chloride Level 99 MMOL/L (98-107) Carbon Dioxide Level 20 MMOL/L (21-32) L Anion Gap 18 mmol/L (5-15) H Blood Urea Nitrogen 69 mg/dL (7-18) H Creatinine 7.7 MG/DL (0.55-1.30) H Estimat Glomerular Filtration Rate 7.6 mL/min (>60) Glucose Level 210 MG/DL (74-106) H Calcium Level 8.0 MG/DL (8.5-10.1) L Phosphorus Level 4.2 MG/DL (2.5-4.9) Magnesium Level 2.4 MG/DL (1.8-2.4) Total Bilirubin 0.6 MG/DL (0.2-1.0) Aspartate Amino Transf (AST/SGOT) 29 U/L (15-37) Alanine Aminotransferase (ALT/SGPT) 32 U/L (12-78) Alkaline Phosphatase 88 U/L (46-116) C-Reactive Protein, Quantitative 18.0 mg/dL (0.00-0.90) H Pro-B-Type Natriuretic Peptide > 85913 pg/mL (0-125) H Total Protein 7.7 G/DL (6.4-8.2) Albumin 2.0 G/DL (3.4-5.0) L Globulin 5.7 g/dL Albumin/Globulin Ratio 0.4 (1.0-2.7) L Microbiology Date/Time Source Procedure Growth Status 08/26/20 16:30 Stool Clostridium difficile Toxin Assay - Final Complete Height (Feet): 5 Height (Inches): 6.00 Weight (Pounds): 121 Medications Current Medications Medications (Trade) Dose Ordered Sig/Sylvia Route PRN Reason Start Time Stop Time Status Last Admin Dose Admin Acetaminophen (Tylenol) 500 mg Q4H PRN ORAL Mild Pain (Pain Scale 1-3) 08/24/20 01:15 09/23/20 01:14 08/25/20 00:36 Chlorhexidine Gluconate (Coco-Hex 2%) 1 applic DAILY@1999 TOPIC 08/27/20 20:00 11/25/20 19:59 Lansoprazole (Prevacid) 30 mg BID NG 08/26/20 18:00 09/25/20 17:59 08/27/20 09:15 Metoprolol Tartrate (Lopressor) 25 mg Q12HR ORAL 08/24/20 21:00 11/22/20 20:59 08/26/20 20:49 Assessment/Plan Problem List: (1) Hyperkalemia, diminished renal excretion ICD Codes: E87.5 - Hyperkalemia SNOMED: 85388386, 395908646, 772386117 (2) Elevated LFTs ICD Codes: R79.89 - Other specified abnormal findings of blood chemistry SNOMED: 487967347, 772213459 (3) Troponin level elevated ICD Codes: R77.8 - Other specified abnormalities of plasma proteins SNOMED: 925875425, 582080511, 386929951 (4) ESRD (end stage renal disease) ICD Codes: N18.6 - End stage renal disease SNOMED: 15095901 (5) Altered level of consciousness ICD Codes: R40.4 - Transient alteration of awareness SNOMED: 8152432 Robert Hodges Aug 27, 2020 16:11
--- NOTE | 2020-08-27 17:37 | NUR ---
NURSE NOTES: RN confirmed with HD nurse NICANOR and she stated will be here around 1900. will continue to monitor.
--- NOTE | 2020-08-27 18:29 | Consultation ---
History of Present Illness General Date patient seen: Aug 27, 2020 Time patient seen: 18:10 Chief Complaint: Altered Level of Consciousness Referring physician: Dr Bhandari Reason for Consultation: Possible gangrene Present Illness HPI Patient does not know he has a lesion on his toe. No pain to feet. Only states that he just threw up. Denies f/c but admits to nausea. Allergies: Coded Allergies: No Known Allergies (Unverified , 08/23/20) Medication History No Active Prescriptions or Reported Meds Patient History History Provided By: Patient Healthcare decision maker N Resuscitation status Advanced Directive on File Physical Exam General Appearance: lethargic Cardiovascular/Chest: other - no pedal pulses palpable Skin Exam: other - discoloration of distal left 4th toe. Absent left hallux toenail with open nail bed. No signs of infection Neurologic: no motor/sensory deficits Last 24 Hour Vital Signs Date Time Temp Pulse Resp B/P (MAP) Pulse Ox O2 Delivery O2 Flow Rate FiO2 08/27/20 16:00 98.1 81 20 128/87 (101) 96 08/27/20 16:00 Room Air 08/27/20 15:40 87 08/27/20 12:00 Room Air 08/27/20 12:00 98.2 65 18 130/70 (90) 99 08/27/20 11:43 83 08/27/20 09:00 70 133/92 08/27/20 08:00 98.4 70 20 133/92 (106) 100 08/27/20 08:00 Room Air 08/27/20 07:43 72 08/27/20 04:00 Room Air 08/27/20 04:00 96.7 81 17 123/87 (99) 99 08/27/20 03:40 79 08/27/20 00:00 Room Air 08/27/20 00:00 97.3 81 17 144/99 (114) 99 08/26/20 23:46 83 08/26/20 20:49 82 147/98 08/26/20 20:00 98.1 82 18 147/98 (114) 99 08/26/20 20:00 Room Air 08/26/20 19:25 82 Intake and Output 08/26/20 08/27/20 19:00 07:00 Intake Total 400 ml 495 ml Balance 400 ml 495 ml Intake Oral 400 ml 440 ml IV Total 55 ml # Voids 3 # Bowel Movements 7 2 Laboratory Tests Test 08/27/20 03:35 White Blood Count 12.1 K/UL (4.8-10.8) H Red Blood Count 2.89 M/UL (4.70-6.10) L Hemoglobin 9.8 G/DL (14.2-18.0) L Hematocrit 27.4 % (42.0-52.0) L Mean Corpuscular Volume 95 FL (80-99) Mean Corpuscular Hemoglobin 33.9 PG (27.0-31.0) H Mean Corpuscular Hemoglobin Concent 35.7 G/DL (32.0-36.0) Red Cell Distribution Width 14.5 % (11.6-14.8) Platelet Count 49 K/UL (150-450) #L Mean Platelet Volume 8.0 FL (6.5-10.1) Neutrophils (%) (Auto) % (45.0-75.0) Lymphocytes (%) (Auto) % (20.0-45.0) Monocytes (%) (Auto) % (1.0-10.0) Eosinophils (%) (Auto) % (0.0-3.0) Basophils (%) (Auto) % (0.0-2.0) Differential Total Cells Counted 100 Neutrophils % (Manual) 85 % (45-75) H Lymphocytes % (Manual) 7 % (20-45) L Monocytes % (Manual) 5 % (1-10) Eosinophils % (Manual) 3 % (0-3) Basophils % (Manual) 0 % (0-2) Band Neutrophils 0 % (0-8) Platelet Estimate Decreased L Platelet Morphology Normal Hypochromasia 1+ Anisocytosis 1+ Sodium Level 136 MMOL/L (136-145) Potassium Level 2.9 MMOL/L (3.5-5.1) L Chloride Level 99 MMOL/L (98-107) Carbon Dioxide Level 20 MMOL/L (21-32) L Anion Gap 18 mmol/L (5-15) H Blood Urea Nitrogen 69 mg/dL (7-18) H Creatinine 7.7 MG/DL (0.55-1.30) H Estimat Glomerular Filtration Rate 7.6 mL/min (>60) Glucose Level 210 MG/DL (74-106) H Calcium Level 8.0 MG/DL (8.5-10.1) L Phosphorus Level 4.2 MG/DL (2.5-4.9) Magnesium Level 2.4 MG/DL (1.8-2.4) Total Bilirubin 0.6 MG/DL (0.2-1.0) Aspartate Amino Transf (AST/SGOT) 29 U/L (15-37) Alanine Aminotransferase (ALT/SGPT) 32 U/L (12-78) Alkaline Phosphatase 88 U/L (46-116) C-Reactive Protein, Quantitative 18.0 mg/dL (0.00-0.90) H Pro-B-Type Natriuretic Peptide > 29624 pg/mL (0-125) H Total Protein 7.7 G/DL (6.4-8.2) Albumin 2.0 G/DL (3.4-5.0) L Globulin 5.7 g/dL Albumin/Globulin Ratio 0.4 (1.0-2.7) L Height (Feet): 5 Height (Inches): 6.00 Weight (Pounds): 121 Medications Current Medications Medications (Trade) Dose Ordered Sig/Sylvia Route PRN Reason Start Time Stop Time Status Last Admin Dose Admin Acetaminophen (Tylenol) 500 mg Q4H PRN ORAL Mild Pain (Pain Scale 1-3) 08/24/20 01:15 09/23/20 01:14 08/25/20 00:36 Chlorhexidine Gluconate (Coco-Hex 2%) 1 applic DAILY@1999 TOPIC 08/27/20 20:00 11/25/20 19:59 Lansoprazole (Prevacid) 30 mg BID NG 08/26/20 18:00 09/25/20 17:59 08/27/20 17:24 Metoprolol Tartrate (Lopressor) 25 mg Q12HR ORAL 08/24/20 21:00 11/22/20 20:59 08/26/20 20:49 Assessment/Plan Assessment/Plan: A/ 1) Possible gangrene of left 4th toe 2) Onycholysis left hallux 3) Hep C P/ 1) X-rays reveal vascular calcifications. Will order arterial ultrasound to further evaluate 2) Cont wound care as ordered 3) No surgical indication at this time 4) Cont abx per ID Thank you Myles Rangel Aug 27, 2020 18:29
--- NOTE | 2020-08-27 18:36 | NUR ---
NURSE NOTES: Dr Glasgow visited pt, no new order received, MD will F/U.
--- NOTE | 2020-08-27 19:02 | NUR ---
NURSE HAND-OFF REPORT: Important Events on Shift: Patient Status: Diet: Pending Orders: Pending Results/Labs: Pending MD notification: Latest Vital Signs: Temperature 98.1 , Pulse 81 , B/P 128 /87 , Respiratory Rate 20 , O2 SAT 96 , Room Air, O2 Flow Rate 2.0 . Vital Sign Comment: EKG Rhythm: Sinus Rhythm Rhythm change?: N MD Notified?: - MD Response: Latest Grossman Fall Score: 50 Fall Risk: High Risk Safety Measures: Call light Within Reach, Bed Alarm Zone 3, Side Rails Side Rails x3, Bed position Low and Locked. Fall Precautions: Yellow Socks Yellow Gown Door Sign Patient Fall Education Report given to . pt is awake and stable, no stress noted, endorsed plan of care, endorsed to F/U HD. HD nurse Addison is in [place] and is going to start HD.
--- NOTE | 2020-08-27 19:15 | NUR ---
NURSE NOTES: Received report from MARINA Jaramillo. pt is seen lying in bed in semi-montero's position. Pt is awake oriented x 2-3 with confusion. Morning nurse removed the restraints, per Nurse the pt is not getting up in bed and pulling out devices. No skin breakdown noted. But there is skin issue all over the body. K level 2.9 of pt, MD aware. (Dr. Germain) per AM nurse. NNO, diaylsis started. VS WNL. O2 sat- 98% no any signs of respiratory distress. Bed in lowest position. Call light within reach. Continue to plan of care.
[2020-08-27 20:00] VITALS: BP 139/85
[2020-08-27] MEDS ORDERED: Dyna-Hex 2% Top Sol 2oz TOPIC SCH (20:00)
--- NOTE | 2020-08-27 21:30 | NUR ---
NURSE NOTES: Dialysis done. No output per Dialysis Nurse.
--- NOTE | 2020-08-27 21:37 | General Progress Note ---
Subjective ROS Limited/Unobtainable: Yes Allergies: Coded Allergies: No Known Allergies (Unverified , 08/23/20) Objective Last 24 Hour Vital Signs Date Time Temp Pulse Resp B/P (MAP) Pulse Ox O2 Delivery O2 Flow Rate FiO2 08/27/20 16:00 98.1 81 20 128/87 (101) 96 08/27/20 16:00 Room Air 08/27/20 15:40 87 08/27/20 12:00 Room Air 08/27/20 12:00 98.2 65 18 130/70 (90) 99 08/27/20 11:43 83 08/27/20 09:00 70 133/92 08/27/20 08:00 98.4 70 20 133/92 (106) 100 08/27/20 08:00 Room Air 08/27/20 07:43 72 08/27/20 04:00 Room Air 08/27/20 04:00 96.7 81 17 123/87 (99) 99 08/27/20 03:40 79 08/27/20 00:00 Room Air 08/27/20 00:00 97.3 81 17 144/99 (114) 99 08/26/20 23:46 83 Intake and Output 08/26/20 08/27/20 19:00 07:00 Intake Total 400 ml 495 ml Balance 400 ml 495 ml Intake Oral 400 ml 440 ml IV Total 55 ml # Voids 3 # Bowel Movements 7 2 Laboratory Tests 08/27/20 03:35: White Blood Count 12.1H, Red Blood Count 2.89L, Hemoglobin 9.8L, Hematocrit 27.4L, Mean Corpuscular Volume 95, Mean Corpuscular Hemoglobin 33.9H, Mean Bita uscular Hemoglobin Concent 35.7, Red Cell Distribution Width 14.5, Platelet Count 49#L, Mean Platelet Volume 8.0, Neutrophils (%) (Auto) , Lymphocytes (%) (Auto) , Monocytes (%) (Auto) , Eosinophils (%) (Auto) , Basophils (%) (Auto) , Differential Total Cells Counted 100, Neutrophils % (Manual) 85H, Lymphocytes % (Manual) 7L, Monocytes % (Manual) 5, Eosinophils % (Manual) 3, Basophils % (Manual) 0, Band Neutrophils 0, Platelet Estimate DecreasedL, Platelet Morphology Normal, Hypochromasia 1+, Anisocytosis 1+, Sodium Level 136, Potassium Level 2.9L, Chloride Level 99, Carbon Dioxide Level 20L, Anion Gap 18H , Blood Urea Nitrogen 69H, Creatinine 7.7H, Estimat Glomerular Filtration Rate 7.6, Glucose Level 210H, Calcium Level 8.0L, Phosphorus Level 4.2, Magnesium Level 2.4, Total Bilirubin 0.6, Aspartate Amino Transf (AST/SGOT) 29, Alanine Aminotransferase (ALT/SGPT) 32, Alkaline Phosphatase 88, C-Reactive Protein, Quantitative 18.0H, Pro-B-Type Natriuretic Peptide > 80126E, Total Protein 7.7, Albumin 2.0L, Globulin 5.7, Albumin/Globulin Ratio 0.4L Height (Feet): 5 Height (Inches): 6.00 Weight (Pounds): 121 Assessment/Plan Problem List: (1) ESRD (end stage renal disease) ICD Codes: N18.6 - End stage renal disease SNOMED: 38847005 (2) Troponin level elevated ICD Codes: R77.8 - Other specified abnormalities of plasma proteins SNOMED: 117259213, 022006205, 693888721 (3) Elevated LFTs ICD Codes: R79.89 - Other specified abnormal findings of blood chemistry SNOMED: 959813954, 019364768 (4) Hyperkalemia, diminished renal excretion ICD Codes: E87.5 - Hyperkalemia SNOMED: 19675237, 884471916, 795688292 (5) Altered level of consciousness ICD Codes: R40.4 - Transient alteration of awareness SNOMED: 4019585 Status: progressing Assessment/Plan: on hd afebrile still confused no acute events sepsis metabolic encephalopathy elevated ammonia is improving Lev Bhandari MD Aug 27, 2020 21:37
--- NOTE | 2020-08-27 23:41 | General Progress Note ---
Subjective Allergies: Coded Allergies: No Known Allergies (Unverified , 08/23/20) Subjective above noted no new complaints Objective Last 24 Hour Vital Signs Date Time Temp Pulse Resp B/P (MAP) Pulse Ox O2 Delivery O2 Flow Rate FiO2 08/27/20 20:00 Room Air 08/27/20 20:00 83 08/27/20 20:00 98.0 86 20 139/85 (103) 98 08/27/20 16:00 98.1 81 20 128/87 (101) 96 08/27/20 16:00 Room Air 08/27/20 15:40 87 08/27/20 12:00 Room Air 08/27/20 12:00 98.2 65 18 130/70 (90) 99 08/27/20 11:43 83 08/27/20 09:00 70 133/92 08/27/20 08:00 98.4 70 20 133/92 (106) 100 08/27/20 08:00 Room Air 08/27/20 07:43 72 08/27/20 04:00 Room Air 08/27/20 04:00 96.7 81 17 123/87 (99) 99 08/27/20 03:40 79 08/27/20 00:00 Room Air 08/27/20 00:00 97.3 81 17 144/99 (114) 99 08/26/20 23:46 83 Intake and Output 08/26/20 08/27/20 19:00 07:00 Intake Total 400 ml 495 ml Balance 400 ml 495 ml Intake Oral 400 ml 440 ml IV Total 55 ml # Voids 3 # Bowel Movements 7 2 Laboratory Tests 08/27/20 03:35: White Blood Count 12.1H, Red Blood Count 2.89L, Hemoglobin 9.8L, Hematocrit 27.4L, Mean Corpuscular Volume 95, Mean Corpuscular Hemoglobin 33.9H, Mean Corpuscular Hemoglobin Concent 35.7, Red Cell Distribution Width 14.5, Platelet Count 49#L, Mean Platelet Volume 8.0, Neutrophils (%) (Auto) , Lymphocytes (%) (Auto) , Monocytes (%) (Auto) , Eosinophils (%) (Auto) , Basophils (%) (Auto) , Differential Total Cells Counted 100, Neutrophils % (Manual) 85H, Lymphocytes % (Manual) 7L, Monocytes % (Manual) 5, Eosinophils % (Manual) 3, Basophils % (Manual) 0, Band Neutrophils 0, Platelet Estimate DecreasedL, Platelet Morphology Normal, Hypochromasia 1+, Anisocytosis 1+, Sodium Level 136, Potassium Level 2.9L, Chloride Level 99, Carbon Dioxide Level 20L, Anion Gap 18H , Blood Urea Nitrogen 69H, Creatinine 7.7H, Estimat Glomerular Filtration Rate 7.6, Glucose Level 210H, Calcium Level 8.0L, Phosphorus Level 4.2, Magnesium Level 2.4, Total Bilirubin 0.6, Aspartate Amino Transf (AST/SGOT) 29, Alanine Aminotransferase (ALT/SGPT) 32, Alkaline Phosphatase 88, C-Reactive Protein, Quantitative 18.0H, Pro-B-Type Natriuretic Peptide > 85968L, Total Protein 7.7, Albumin 2.0L, Globulin 5.7, Albumin/Globulin Ratio 0.4L Height (Feet): 5 Height (Inches): 6.00 Weight (Pounds): 121 Objective Dishevelled man NCAT supple CTA RR abd soft no edema Assessment/Plan Status: progressing Assessment/Plan: Assessment - renal failure - Rhabdo - Hepatitis C (+) - suspect toxic-metabolic encephalopathy - improving - cholelithiasis, per abd ultrasound - low platelets Recommendations - supportive care - HD - po diet - follow LFT - consider heme eval of low platelets Franklin Palomares MD Aug 27, 2020 23:41
[2020-08-28] VITALS: BP 149/100
--- NOTE | 2020-08-28 01:15 | NUR ---
NURSE NOTES: Cleaned pt, repositioned. Oral care performed. Sponge bath given. VS WNL. Pt is restless and agitated wants to pull devices. Not in respiratory distress. Continue to plan of care.
--- NOTE | 2020-08-28 02:46 | NUR ---
NURSE NOTES: Pt asleep in bed. Gown and linen changed. Comfortably with no distress. Continue to plan of care.
[2020-08-28 04:00] VITALS: BP 143/98
[2020-08-28 04:00] LABS: HEMATOCRIT 28.2 % (42.0-52.0); HEMOGLOBIN 10.1 G/DL (14.2-18.0); MEAN CORPUSCULAR VOLUME 94 FL (80-99); PLATELET COUNT 65 K/UL (150-450); RED CELL DISTRIBUTION WIDTH 14.5 % (11.6-14.8); WHITE BLOOD COUNT 6.5 K/UL (4.8-10.8)
[2020-08-28 04:09] LABS: AMMONIA 31 umol/L (11-32)
[2020-08-28 04:24] LABS: ALANINE AMINOTRANSFERASE 32 U/L (12-78); ALBUMIN 1.9 G/DL (3.4-5.0); ALBUMIN/GLOBULIN RATIO 0.4 (1.0-2.7); ALKALINE PHOSPHATASE 78 U/L (46-116); ASPARTATE AMINO TRANSFERASE 22 U/L (15-37); BILIRUBIN,TOTAL 0.5 MG/DL (0.2-1.0); BLOOD UREA NITROGEN 35 mg/dL (7-18); CALCIUM 7.5 MG/DL (8.5-10.1); CARBON DIOXIDE 28 MMOL/L (21-32); CHLORIDE 97 MMOL/L (98-107); CREATININE 4.4 MG/DL (0.55-1.30); PHOSPHORUS 2.6 MG/DL (2.5-4.9); POTASSIUM 3.1 MMOL/L (3.5-5.1); SODIUM 133 MMOL/L (136-145)
--- NOTE | 2020-08-28 05:38 | NUR ---
NURSE NOTES: Pt is sleeping no pain noted. Pt on RA o2 sat- 100%. Continue to plan of care.
--- NOTE | 2020-08-28 06:50 | General Progress Note ---
Subjective ROS Limited/Unobtainable: No Allergies: Coded Allergies: No Known Allergies (Unverified , 08/23/20) Objective Last 24 Hour Vital Signs Date Time Temp Pulse Resp B/P (MAP) Pulse Ox O2 Delivery O2 Flow Rate FiO2 08/28/20 04:00 Room Air 08/28/20 04:00 77 08/28/20 04:00 97.3 77 18 143/98 (113) 98 08/28/20 00:00 78 08/28/20 00:00 97.5 80 19 149/100 (116) 100 08/28/20 00:00 Room Air 08/27/20 20:00 Room Air 08/27/20 20:00 83 08/27/20 20:00 98.0 86 20 139/85 (103) 98 08/27/20 16:00 98.1 81 20 128/87 (101) 96 08/27/20 16:00 Room Air 08/27/20 15:40 87 08/27/20 12:00 Room Air 08/27/20 12:00 98.2 65 18 130/70 (90) 99 08/27/20 11:43 83 08/27/20 09:00 70 133/92 08/27/20 08:00 98.4 70 20 133/92 (106) 100 08/27/20 08:00 Room Air 08/27/20 07:43 72 Intake and Output 08/27/20 08/28/20 19:00 07:00 Intake Total 175 ml 350 ml Output Total 200 ml Balance 175 ml 150 ml Intake Oral 120 ml 350 ml IV Total 55 ml Stool Total 200 ml # Voids 1 # Bowel Movements 3 3 Laboratory Tests 08/28/20 03:05: White Blood Count 6.5, Red Blood Count 3.00L, Hemoglobin 10.1L, Hematocrit 28.2L , Mean Corpuscular Volume 94, Mean Corpuscular Hemoglobin 33.6H, Mean Corpuscular Hemoglobin Concent 35.8, Red Cell Distribution Width 14.5, Platelet Count 65L, Mean Platelet Volume 7.6, Neutrophils (%) (Auto) , Lymphocytes (%) (Auto) , Monocytes (%) (Auto) , Eosinophils (%) (Auto) , Basophils (%) (Auto) , Neutrophils % (Manual) [Pending], Lymphocytes % (Manual) [Pending], Platelet Estimate [Pending], Platelet Morphology [Pending], Sodium Level 133L, Potassium Level 3.1L, Chloride Level 97L, Carbon Dioxide Level 28, Blood Urea Nitrogen 35H , Creatinine 4.4H, Estimat Glomerular Filtration Rate 14.4, Glucose Level 253H, Calcium Level 7.5L, Phosphorus Level 2.6, Magnesium Level 2.1, Total Bilirubin 0.5, Aspartate Amino Transf (AST/SGOT) 22, Alanine Aminotransferase (ALT/SGPT) 32, Alkaline Phosphatase 78, Ammonia 31, C-Reactive Protein, Quantitative 9.1H, Pro-B-Type Natriuretic Peptide > 81363L, Total Protein 7.3, Albumin 1.9L, Globulin 5.4, Albumin/Globulin Ratio 0.4L Height (Feet): 5 Height (Inches): 6.00 Weight (Pounds): 121 General Appearance: no apparent distress EENT: normal ENT inspection Neck: supple Cardiovascular: normal rate Respiratory/Chest: decreased breath sounds Abdomen: normal bowel sounds, non tender, soft Extremities: non-tender Assessment/Plan Status: progressing Assessment/Plan: Assessment/Plan Status: progressing Assessment/Plan: Assessment - renal failure - Rhabdo - Hepatitis C (+) - suspect toxic-metabolic encephalopathy - improving - cholelithiasis, per abd ultrasound - low platelets Recommendations - supportive care - HD - po diet - follow LFT - consider heme eval of low platelet Charles Small MD Aug 28, 2020 06:50
--- NOTE | 2020-08-28 07:35 | NUR ---
NURSE HAND-OFF REPORT: Important Events on Shift: Pt is still on retraints, Still having diarrhea greenish in color, Still with altered mental status, Trying to pull out devices. Potassium 3.1- Will informed Dr. Germain Patient Status: Guarding Diet: Renal mech soft chopped diet with thin liquid Pending Orders: None Pending Results/Labs: None Pending MD notification: None Latest Vital Signs: Temperature 97.3 , Pulse 77 , B/P 143 /98 , Respiratory Rate 18 , O2 SAT 98 , Room Air, O2 Flow Rate 2.0 . Vital Sign Comment: WNL EKG Rhythm: SR with BBB Rhythm change?: N MD Notified?: - MD Response: Latest Grossman Fall Score: 60 Fall Risk: High Risk Safety Measures: Call light Within Reach, Bed Alarm Zone 2, Side Rails Side Rails x3, Bed position Low and Locked. Fall Precautions: Yellow Socks Yellow Gown Door Sign Patient Fall Education Report given to [MARINA Wynn].
--- NOTE | 2020-08-28 07:52 | NUR ---
NURSE NOTES:Handoff received from MARINA Steward. Patient received awake and alert and able to make needs known, patient in bilateral soft wrist restraints for safety and pulling at devices. SCD on end of bed, patient keeps kicking them off, attempted to place back on patient, no luck at this time. patient is on fall and aspiration precautions with bed in the low and locked position and call light within reach. ekg monitor is on with HR of 92. will follow plan of care.
[2020-08-28 08:00] VITALS: BP 136/92
--- NOTE | 2020-08-28 10:27 | Nephrology Progress Note ---
Assessment/Plan Problem List: (1) ESRD (end stage renal disease) (2) Altered level of consciousness (3) Hyperkalemia, diminished renal excretion (4) Elevated LFTs (5) Troponin level elevated Assessment Plan August 28: Patient dialyzed yesterday. Today's labs reviewed. Discussed with MARINA Wynn. Next dialysis is scheduled for August 30. Meanwhile monitor renal parameters and electrolytes. Continue per consultants. August 27: Patient due for dialysis today. Potassium supplement given. Continue to check ammonia level. Continue per ID advice. Remains encephalopathic. August 26: Patient in SDU. Was dialyzed yesterday. Will give potassium supplement. Will arrange for dialysis tomorrow. Continue per consultants. Leukocytosis worsening. Continue per ID advice. August 25: Discussed with MARINA Salinas. Due for dialysis today. Continue per consultants. Waiting for blood culture results. August 24: Patient seen in ICU. Discussed with MARINA Tillman. Patient was dialyzed yesterday. Electrolyte abnormalities no much improved. Continue per consultants. Next dialysis tomorrow. Subjective ROS Limited/Unobtainable: No Constitutional: Reports: malaise Objective Objective Last 24 Hour Vital Signs Date Time Temp Pulse Resp B/P (MAP) Pulse Ox O2 Delivery O2 Flow Rate FiO2 08/28/20 08:28 84 136/92 08/28/20 08:00 Room Air 08/28/20 08:00 82 08/28/20 08:00 96.6 84 16 136/92 (107) 97 08/28/20 04:00 Room Air 08/28/20 04:00 77 08/28/20 04:00 97.3 77 18 143/98 (113) 98 08/28/20 00:00 78 08/28/20 00:00 97.5 80 19 149/100 (116) 100 08/28/20 00:00 Room Air 08/27/20 20:00 Room Air 08/27/20 20:00 83 08/27/20 20:00 98.0 86 20 139/85 (103) 98 08/27/20 16:00 98.1 81 20 128/87 (101) 96 08/27/20 16:00 Room Air 08/27/20 15:40 87 08/27/20 12:00 Room Air 08/27/20 12:00 98.2 65 18 130/70 (90) 99 08/27/20 11:43 83 Intake and Output 08/27/20 08/28/20 19:00 07:00 Intake Total 175 ml 350 ml Output Total 200 ml Balance 175 ml 150 ml Intake Oral 120 ml 350 ml IV Total 55 ml Stool Total 200 ml # Voids 1 # Bowel Movements 3 3 Current Medications Medications (Trade) Dose Ordered Sig/Sylvia Route PRN Reason Start Time Stop Time Status Last Admin Dose Admin Acetaminophen (Tylenol) 500 mg Q4H PRN ORAL Mild Pain (Pain Scale 1-3) 08/24/20 01:15 09/23/20 01:14 08/25/20 00:36 Chlorhexidine Gluconate (Coco-Hex 2%) 1 applic DAILY@1999 TOPIC 08/27/20 20:00 11/25/20 19:59 08/27/20 21:13 Lansoprazole (Prevacid) 30 mg BID NG 08/26/20 18:00 09/25/20 17:59 08/28/20 08:27 Metoprolol Tartrate (Lopressor) 25 mg Q12HR ORAL 08/24/20 21:00 11/22/20 20:59 08/28/20 08:28 Potassium Chloride (K-Dur) 40 meq ONCE ONCE ORAL 08/28/20 10:30 08/28/20 10:31 UNV Laboratory Tests 08/28/20 03:05: White Blood Count 6.5, Red Blood Count 3.00L, Hemoglobin 10.1L, Hematocrit 28.2L , Mean Corpuscular Volume 94, Mean Corpuscular Hemoglobin 33.6H, Mean Corpuscular Hemoglobin Concent 35.8, Red Cell Distribution Width 14.5, Platelet Count 65L, Mean Platelet Volume 7.6, Neutrophils (%) (Auto) , Lymphocytes (%) (Auto) , Monocytes (%) (Auto) , Eosinophils (%) (Auto) , Basophils (%) (Auto) , Differential Total Cells Counted 100, Neutrophils % (Manual) 72, Lymphocytes % (Manual) 9L, Monocytes % (Manual) 14H, Eosinophils % (Manual) 5H, Basophils % (Manual) 0, Band Neutrophils 0, Platelet Estimate DecreasedL, Platelet Morphology Normal, Anisocytosis 1+, Sodium Level 133L, Potassium Level 3.1L, Chloride Level 97L, Carbon Dioxide Level 28, Blood Urea Nitrogen 35H, Creatinine 4.4H, Estimat Glomerular Filtration Rate 14.4, Glucose Level 253H, Calcium Level 7.5L, Phosphorus Level 2.6, Magnesium Level 2.1, Total Bilirubin 0.5, Aspartate Amino Transf (AST/SGOT) 22, Alanine Aminotransferase (ALT/SGPT) 32, Alkaline Phosphatase 78, Ammonia 31, C-Reactive Protein, Quantitative 9.1H, Pro-B-Type Natriuretic Peptide > 74340H, Total Protein 7.3, Albumin 1.9L, Globulin 5.4, Albumin/Globulin Ratio 0.4L Height (Feet): 5 Height (Inches): 6.00 Weight (Pounds): 121 General Appearance: no apparent distress, lethargic Cardiovascular: normal rate - Rate 80s Respiratory/Chest: decreased breath sounds Abdomen: soft, distended Objective No change Alfredo Germain MD Aug 28, 2020 10:27
--- NOTE | 2020-08-28 11:50 | NUR ---
NURSE NOTES:Patient restraints removed as patient calm and cooperative since 1020AM, patient verbalized understanding of not removing IV lines.
[2020-08-28 12:00] VITALS: BP 146/12
--- NOTE | 2020-08-28 12:57 | NUR ---
CASE MANAGEMENT:REVIEW SI;SEPSIS. HEPATIC ENCEPHALOPATHY. ESRD. A-FIB W/RVR. CHOLELITHIASIS. 96.6 102 19 149/100 97% ON RA H/H 10.1/28.2 PLT 65 NA 133 K+ 3.1 BUN 35 CR4.4 BG 253 CA 7.5 CRP 9.1 BNP >34418 ALB 1.9 IS;K+DUR PO ONCE PREVACID NG BID LOPRESSOR NG Q12 KARINA STATUS DCP;PATIENT REPORTS HOMELESSNESS PLAN; MONITOR RENAL PARAMETERS AND ELECTROLYTES HEME EVAL FOR DECREASED LOW PLATELET LEVEL
[2020-08-28] MEDS ORDERED: NS 275ml ONE (13:08)
--- NOTE | 2020-08-28 13:10 | NUR ---
NURSE NOTES:Patient removed rectal tube and gown and is on the bed naked, asking for his clothes so that he can leave. Informed patient that the MD has not cleared him to leave the hospital yet, but patient insists that he wants to leave.Terry guzman called and patient placed back on bilateral wrist restraints. a few minutes later patient is observed biting at restraints and managed to break the clip and remove restraints. Informed charge nurse who spoke to Primary MD Bhandari who stated patient is not stable for discharge. wire frame maker Barby had patient sign AMA form. I attempted to convince patient to stay in the hospital explaining that he still needs further treatment and evaluation before it is safe for him to leave. Patient refuses to accept help and insists that he will leave the hospital. Patient belongings given to patient, who got himself dressed and then left the hospital. IV site removed by patient, bleeding noted, pressure applied until bleeding stopped and then taped with gauze. Informed patient to seek follow up care.
--- NOTE | 2020-08-28 13:42 | Cardiology Report ---
APPROVED REPORT EXAM: Two-dimensional and M-mode echocardiogram with Doppler and color Doppler. INDICATION Congestive Heart Failure M-Mode DIMENSIONS IVSd1.3 (0.7-1.1cm)Left Atrium (MM)3.2 (1.6-4.0cm) LVDd3.5 (3.5-5.6cm)Aortic Root3.0 (2.0-3.7cm) PWd1.4 (0.7-1.1cm)Aortic Cusp Exc.1.7 (1.5-2.0cm) IVSs1.8 cmEPSS0.8 (>1.0cm) LVDs2.7 (2.5-4.0cm) PWs1.8 cm <Conclusion> Technically difficult study due to poor acoustic windows. Normal left ventricular chamber size. Left ventricular anterolateral wall dyskinesia. Left ventricular ejection fraction is estimated to be 45%. Ischemic cardiomyopathy cannot be excluded. Mild left ventricular hypertrophy. No evidence of pericardial effusion. All other cardiac chamber sizes are within normal limits. Focal aortic valve sclerosis with adequate cusp excursion. Thickened mitral valve leaflets with normal excursion. Mitral annulus and aortic root calcification. Pulmonic valve not well visualized. Normal tricuspid valve structure. IVC is normal in size without physiological collapse. A color flow and spectral Doppler study was performed and revealed: No aortic regurgitation. Trace mitral regurgitation. Left ventricular diastolic function could not be determined due to arrhythmia. Mild to moderate tricuspid regurgitation. Tricuspid systolic velocities suggests peak right ventricular systolic pressure of 32 mmHg. Trace pulmonic regurgitation.
--- NOTE | 2020-08-29 08:14 | Discharge Summary ---
Discharge Summary Discharge Summary _ DATE OF ADMISSION: 08/23/2020 DATE OF DISCHARGE: 08/28/2020 Patient left AGAINST MEDICAL ADVICE REASON FOR ADMISSION: 50 years old male with past medical history of end-stage renal disease ,on hemodialysis , was found on the street by paramedics. Patient was grunting and moaning and was unable to provide any information Upon arrival to ED vital signs were stable. Laboratory work-up revealed mild leukocytosis with WBC 12.6, hemoglobin 11.8, hematocrit 36, platelet count 136. Potassium 5.7. BUN 149, creatinine 15.5. Glucose 142. AST 133, ALT 74 Troponin 0.151. EKG revealed peaked T waves in anterior leads . Urine tox screen positive for marijuana. Rapid COVID-19 in the ER was negative. Urinalysis revealed + 4 protein ,+1 glucose, + leukocyte esterase ,borderline pyuria and few bacteria. Chest x-ray revealed no acute cardiopulmonary pathology. Dialysis catheter noted to be in place . 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 No evidence of acute intracranial bleeding or mass-effect. Patient noted to have A. fib with rapid ventricular response. Central line was placed. Hyperkalemia was treated ; patient received small fluid bolus and subsequently admitted to ICU for further management. CONSULTANTS: splitting machine feeder Dr. Adam pulmonary Dr. Castellanos ID specialist Dr. Jean Carlos Adamson GI specialist Dr. Palomares management scientist Dr. Germain [facility] COURSE: Patient admitted to ICU . Patient initially required for short time Cardizem drip as well as the Levophed drip. Cardizem drip shortly discontinued . Patient converted to sinus rhythm. Blockage provided. Echocardiogram demonstrated left ventricular anterolateral wall dyskinesia. Estimated left ventricular ejection fraction 45%. No evidence of pericardial effusion. Mild left ventricular hypertrophy. Serial troponin were trending up: next troponin 0.4 and the last troponin 0.676 Volumes were closely monitored. Hemodialysis provided with close monitoring of volumes and cardiorenal parameters. Electrolytes corrected as needed. Elevated troponin was likely due to sepsis, hypotension and tachycardia. Supplemental oxygen provided and titrated to keep pulse oximetry above 92%. Patient required at some point supplemental oxygen via nasal cannula. Venous duplex bilateral lower extremity revealed no evidence of acute DVT. Abdominal ultrasound revealed cholelithiasis. Gallbladder wall thickening , raising possibility of acute cholecystitis ; no evidence of dilated bile ducts ducts. Increased renal echogenicity consistent with medical renal disease. Subsequently HIDA scan was done , which revealed no evidence of acute cholecystitis. LFT initially elevated, were trending down. Hepatitis panel revealed evidence of hepatitis C. Initial ammonia 129. Patient started on lactulose . Ammonia trended down to 31. Initial CK 1833 , CK trended down to 378. Blood cultures were negative. Stool for C. difficile was negative. Patient initially was treated with empiric antibiotic , which discontinued as per ID specialist recommendation. Open Hearth Furnace Laborer seen patient for possible gangrene of the left fourth toe. X-ray of the left foot revealed no acute bony trauma. Open Hearth Furnace Laborer recommended continue with wound care . Service Consultant recommendations implemented in plan of care. Arterial ultrasound was ordered for further evaluation. No surgical indication at this time. Hemoglobin and hematocrit were closely monitored with goal to keep hemoglobin above 7, hemoglobin and hematocrit remained at baseline . Prior to signing AMA hemoglobin 10.1, hematocrit 28.2. Platelets trended down to 65. Hematology consult was pending. On 08/28 patient decided to leave AGAINST MEDICAL ADVICE. The risks and consequences of signing AGAINST MEDICAL ADVICE were discussed with patient in detail. Patient verbalized understanding, nevertheless signed AMA form and left. FINAL DIAGNOSES: Sepsis versus SIRS Hepatic encephalopathy Toxic metabolic encephalopathy Atrial fibrillation with rapid ventricular response-converted to SR Elevated troponin ( likely due to sepsis , hypotension and tachycardia) CHF with reduced ejection fraction 40-45% End-stage renal disease , on hemodialysis Hyperkalemia, diminished renal excretion Rhabdo Thrombocytopenia Anemia Marijuana abuse Likely scabies, status post treatment Possible gangrene of the left fourth toe Onycholysis left hallux I have been assigned to dictate discharge summary for this account. I was not involved in the patient's management. Savannah Kline NP Aug 29, 2020 08:14
== END 2020-08-28 13:09 | disposition left against medical advice (07) | DRG 871 ==
LOC: EDBD 07:46 → EMR 08:08 → ICU 08:30 → EDBEDREQ 09:38 → EDBEDREQSVC 09:38 → EDBEDREQ 15:15 → 2W 08-26 00:19
PROC: 5A1D70Z Performance of Urinary Filtration, Intermittent, Less than 6 Hours Per Day (ICD-10-PCS; principal; 2020-08-23)
DX: A41.9 Sepsis, unspecified organism (principal); N18.6 End stage renal disease; G92 Toxic encephalopathy; N17.9 Acute kidney failure, unspecified; M62.82 Rhabdomyolysis; I96 Gangrene, not elsewhere classified; E87.5 Hyperkalemia; I48.91 Unspecified atrial fibrillation; K72.90 Hepatic failure, unspecified without coma; K80.20 Calculus of gallbladder without cholecystitis without obstruction; I50.9 Heart failure, unspecified; Z99.2 Dependence on renal dialysis; D69.6 Thrombocytopenia, unspecified; D64.9 Anemia, unspecified; F12.10 Cannabis abuse, uncomplicated; B86 Scabies; L60.1 Onycholysis; B19.20 Unspecified viral hepatitis C without hepatic coma
CPT/HCPCS: 36415; 70450; 71045; 74018; 76700; 78266; 80053; 80061; 80202; 80307; 81003; 82140; 82248; 82550; 82977; 83605; 83615; 83735; 83880; 84100; 84439; 84443; 84484; 84550; 85007; 85025; 85610; 86140; 86706; 86803; 87040; 87081; 87324; 93005; 93306; 93970; 96372; 96374; 96375; 99291; G0480; J8499; U0002